=== PATIENT | female | born 1990 | race Caucasian/White ===

== ENCOUNTER → 2017-09-12 11:27 | Outpatient (CLI) | payer MEDICAID, SELFPAY ==
[2017-09-12 14:00] LABS: Hematocrit 40.6 % (37-47); Hemoglobin 13.5 g/dl (12.0-15.0); Mean Corp Hgb Conc 33.3 g/gl (32-36); Mean Corpuscular Hgb 27.8 pg (27.0-32.0); Mean Corpuscular Volume 83.5 fL (81-99); Mean Platelet Vol. 12.4 fl (6.2-12.0); Platelet Count 247 K/mm3 (150-450); RBC Distribution Width CV 13.6 % (11.6-14.6); RBC Distribution Width SD 40.9 fl (35.1-43.9); Red Blood Count 4.86 M/mm3 (4.2-5.4); White Blood Count 6.7 K/mm3 (4.4-11.0)
[2017-09-12 14:03] LABS: Scan Indicated on CBC? Y/N NO
[2017-09-12 14:09] LABS: hCG Titer Quant., Serum < 1 mIU/mL (<9 non-preg)
[2017-09-12 14:15] LABS: Follicle Stimulating Hormone 1.9 mIU/mL; Luteinizing Hormone 1.7 mIU/mL; T4 Free Direct 0.73 ng/dL (0.76-1.46); Thyroid Stim Hormone (TSH) 2.06 uIU/mL (0.358-3.74)
== END ==
PROVIDERS: Visit Provider Obstetrics & Gynecology
DX: N92.0 Excessive and frequent menstruation with regular cycle (principal); N92.4 Excessive bleeding in the premenopausal period
CPT/HCPCS: 36415; 83001; 83002; 84439; 84443; 84702; 85027

== ENCOUNTER → 2017-11-06 15:14 | Outpatient (CLI) | payer MEDICAID, SELFPAY ==
[2017-11-06 18:30] LABS: Chlamydia Trachomatis by PCR Negative (Negative); Neisserai gonorrhoeae by PCR Negative (Negative); Probe Check PASS; Sample Adequacy Control PASS; Specimen Processing Control PASS
== END ==
PROVIDERS: Visit Provider Obstetrics & Gynecology
DX: Z11.3 Encounter for screening for infections with a predominantly sexual mode of transmission (principal)
CPT/HCPCS: 87491; 87591

== ENCOUNTER → 2017-12-03 13:44 | Outpatient (CLI) | payer MEDICAID, SELFPAY | PROVIDERS: Visit Provider Obstetrics & Gynecology | DX: R30.0 Dysuria (principal) | CPT/HCPCS: 87077; 87086; 87088; 87186 ==

== ENCOUNTER → 2018-05-13 15:21 | Outpatient (CLI) | payer MEDICAID, SELFPAY ==
[2018-05-16 13:28] LABS: HPV Reflexed? NOT INDICATED
== END ==
PROVIDERS: Visit Provider Obstetrics & Gynecology
DX: Z12.4 Encounter for screening for malignant neoplasm of cervix (principal)
CPT/HCPCS: 88175; G0145

== ENCOUNTER → 2018-05-17 16:47 | Outpatient (CLI) | payer MEDICAID, SELFPAY | PROVIDERS: Visit Provider Physician Assistant Surgical | DX: J02.9 Acute pharyngitis, unspecified (principal) | CPT/HCPCS: 87081 ==

== ENCOUNTER 2018-06-02 11:01 | Emergency (ER) | payer MEDICAID, SELFPAY ==
[2018-06-02 11:03] VITALS: BP 124/67; PULSE 84; RESP 16; TEMP 36.7; O2SAT 98; BMI 34.9
--- NOTE | 2018-06-02 11:16 | RAD_ITS ---
STUDY: X-RAY - RIGHT KNEE REASON FOR EXAM: Female, 28 years old. Pain 2 months TECHNIQUE: 4 view(s) of the knee. # Of Images: 4 COMPARISON: March 05, 2011 right knee x-ray FINDINGS: Normal visualized distal femur. Normal visualized proximal tibia and fibula. Normal proximal tibiofibular articulation. 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 Normal lateral femorotibial compartment. There is mild degenerative arthrosis of the patellofemoral articulation. The soft tissue structures are unremarkable. RAD/Knee 4 or More Views IMPRESSION: Mild degenerative No visualized evidence of an acute fracture. Electronically Signed: Soni Hess MD at 12:07 EDT Tel , Service support ,
--- NOTE | 2018-06-02 11:19 | ED.VISSUMM ---
- ER Visit Summary Date of Service: 06/02/18 Chief Complaint: Right knee pain History of Present Illness: The patient is a 28 F who presents with right knee pain that has been waxing and waning for the past 2 months. Patient states the pain is worse today. Patient states she was walking in high heels at a wedding yesterday. Patient denies any direct trauma or injury. Patient states the pain is worse over the medial aspect of her right knee. Patient describes the pain is constant aching but sharp at times. Patient states the pain is worse with certain movements. Patient denies any paresthesias or weakness. Physical Examination: Vital signs are stable. Patient is afebrile. Patient is in no acute distress. Skill skeletal exam reveals tenderness over the medial aspect of the right knee. There is also tenderness over the pes anserine bursa. There is no effusion. There is no edema or ecchymosis. There is no bony crepitance or step-off. There is pain with ligamentous testing but there is no laxity with varus, valgus, or Markos's test. Range of motion was limited in flexion of the right knee secondary to pain. Sensation was intact to light touch in the lower extremities bilaterally. Pedal pulses are equal bilaterally. The remaining physical exam is within normal limits. Test Results: X-rays of the right knee were obtained. There is no acute fracture or loose body noted. Emergency Department Course and Treatment: Patient was instructed to use ice to the area. Patient was instructed to use Tylenol as needed for pain. Patient had prior Wade-en-Y surgery so NSAIDs are contraindicated. Patient was instructed to follow-up with her primary care physician in 5-7 days. Patient understood and was agreeable with the plan. All questions were answered. Disposition: Discharge home Impression: Right knee pain This note was generated with [employer] dictation software. It may contain incorrect words, spelling, and punctuation that were not noted in review of the chart prior to signing ED Disposition - Plan for ED Patient: Disposition: Home or Assisted Living Chief Complaint: Lower Extremity Injury Diagnosis: Right medial knee pain Instructions: ED Knee Pain [facility]
[2018-06-02 12:32] VITALS: RESP 16
== END 2018-06-02 12:34 | disposition home or self-care (01) ==
PROVIDERS: Emergency Provider Emergency Medicine; Family Provider Student in an Organized Health Care Education/Training Program; PCP Student in an Organized Health Care Education/Training Program
DX: M25.561 Pain in right knee (principal); Z79.899 Other long term (current) drug therapy
CPT/HCPCS: 73564; 99282

== ENCOUNTER → 2018-07-09 14:24 | Outpatient (CLI) | payer MEDICAID, SELFPAY ==
[2018-07-09 15:18] LABS: Hematocrit 41.7 % (37-47); Hemoglobin 13.4 g/dl (12.0-15.0); Mean Corp Hgb Conc 32.1 g/gl (32-36); Mean Corpuscular Hgb 27.5 pg (27.0-32.0); Mean Corpuscular Volume 85.6 fL (81-99); Mean Platelet Vol. 12.5 fl (6.2-12.0); Platelet Count 211 K/mm3 (150-450); RBC Distribution Width CV 13.6 % (11.6-14.6); RBC Distribution Width SD 42.7 fl (35.1-43.9); Red Blood Count 4.87 M/mm3 (4.2-5.4); White Blood Count 5.7 K/mm3 (4.4-11.0)
[2018-07-09 15:42] LABS: Scan Indicated on CBC? Y/N NO
[2018-07-09 15:45] LABS: Vitamin B12 307 pg/mL (211-911)
[2018-07-09 15:50] LABS: ALB/GLOB Ratio 1.3 RATIO (0.9-2.4); AST(SGOT) 10 U/L (15-37); Alanine Aminotransfer ALT/SGPT 18 U/L (13-56); Albumin, Serum 3.9 g/dL (3.2-5.0); Alkaline Phosphatase 87 U/L (45-117); Anion Gap 9 (5-15); BUN 8 mg/dL (7-18); BUN/Creat Ratio 13.2 RATIO (10-20); Calcium,Total 8.9 mg/dL (8.5-10.1); Chloride 109 mmol/L (98-107); Creatinine, Serum 0.61 mg/dL (0.55-1.02); EST Glomerular Filtration Rate 124 mL/min (>60); Est Glom Filt Rate - Afr Amer 150 mL/min (>60); Glucose 82 mg/dL (74-106); Iron 45 ug/dL (50-170); Potassium 3.9 mmol/L (3.5-5.1); Protein, Total 6.9 g/dL (6.4-8.2); Sodium Level 143 mmol/L (136-145)
[2018-07-11 15:36] LABS: Zinc, Plasma or Serum 64 ug/dL (56-134)
--- OUTSIDE RECORDS SUMMARY | 2018-09-04 05:55 | XMS RPT_ITS ---
:1990 Author Organization OHIP Support Name Relationship Address Phone MAMTAKARTIK Unavailable [address] + [place] [address] UE Unavailable Unavailable Unavailable KARTIK OLEARY Unavailable [address] + [place] [address] UE Unavailable Unavailable Unavailable Geitgey, Lorraine Unavailable Unavailable + Kartik Oleary Unavailable Unavailable + KARTIK OLEARY Unavailable [address] + [place] [address] UE Unavailable Unavailable Unavailable MAMTA KARTIK Unavailable [address] + [place] [address] UE Unavailable Unavailable Unavailable LOLA OLEARYUA Unavailable [address] + [place] [address] UE Unavailable Unavailable Unavailable AMMTA KARTIK Unavailable [address] + [place] [address] UE Unavailable Unavailable Unavailable LOLA OLEARYUA Unavailable [address] + [place] [address] UE Unavailable Unavailable Unavailable LOLA OLEARYUA Unavailable [address] + [place] [address] UE Unavailable Unavailable Unavailable Geitgey, Lorraine Unavailable Unavailable + Kartik Oleary Unavailable Unavailable + Geitgey, Lorraine Unavailable Unavailable + Kartik Oleary Unavailable Unavailable + Geitgey, Lorraine Unavailable Unavailable + Kartik Oleary Unavailable Unavailable + Geitgey, Lorraine Unavailable Unavailable + Kartik Oleary Unavailable Unavailable + Geitgey, Lorraine Unavailable Unavailable + Kartik Oleary Unavailable Unavailable + Geitgey, Lorraine Unavailable Unavailable + Kartik Oleary Unavailable Unavailable + Geitgey, Lorraine Unavailable Unavailable + Kartik Oleary Unavailable Unavailable + Geitgey, Lorraine Unavailable Unavailable + Kartik Oleary Unavailable Unavailable + Geitgey, Lorraine Unavailable Unavailable + Kartik Oleary Unavailable Unavailable + Geitgey, Lorraine Unavailable Unavailable + Kartik Oleary Unavailable Unavailable + Kartik Oleary Unavailable Unavailable + Kartik Oleary Unavailable Unavailable + KARTIK OLEARY Unavailable [address] + [place] [address] UE Unavailable Unavailable Unavailable Geitgey, Lorraine Unavailable Unavailable + Kartik Oleary Unavailable Unavailable + KARTIK OLEARY Unavailable [address] + [place] [address] UE Unavailable Unavailable Unavailable Geitgey, Bindu Unavailable Unavailable + Kartik Oleary Unavailable Unavailable + Geitgey, Bindu Unavailable Unavailable + Kartik Oleary Unavailable Unavailable + LOLA OLEARYUA Unavailable [address] + [place] [address] UE Unavailable Unavailable Unavailable LOLA OLEARYUA Unavailable [address] + [facility] [place] [address] UE Unavailable Unavailable Unavailable LOLA OLAERYUA Unavailable [address] + [facility] [place] [address] UE Unavailable Unavailable Unavailable LOLA OLEARYUA Unavailable [address] + [place] [address] UE Unavailable Unavailable Unavailable MAMTA KARTIK Unavailable [address] + [place] [address] UE Unavailable Unavailable Unavailable Bindu Lim Unavailable Unavailable + Kartik Oleary Unavailable Unavailable + Care Team Providers Name Role Phone Stacy Horton Attending Unavailable Florinda Thompson Referring Unavailable Primay Care Physicia, No Primary Care Unavailable Renan Murphy Attending Unavailable Primay Care Physicia, No Primary Care Unavailable Kartik Kramer Attending Unavailable Graciela Grimm Attending Unavailable Primay Care Physicia, No Referring Unavailable Primay Care Physicia, No Primary Care Unavailable Graciela Grimm Attending Unavailable Primay Care Physicia, No Primary Care Unavailable Benekos, Florinda Attending Unavailable Primay Care Physicia, No Primary Care Unavailable Benekos, Florinda Attending Unavailable Benekos, Florinda Attending Unavailable Primay Care Physicia, No Primary Care Unavailable JuansDianaFlorinda Attending Unavailable Denzel Dumont Attending Unavailable Denzel Dumont Attending Unavailable Denzel Dumont Attending Unavailable Yury Velarde Attending Unavailable Los, Simranjot Primary Care Unavailable SOHA HOLT Attending Unavailable Los, Simranjot Primary Care Unavailable SOHA HOLT Referring Unavailable BenekoFlorinda ibanez Attending Unavailable Los, Simranjot Primary Care Unavailable MADONNA, REDD Attending Unavailable JULIO WILSON Attending Unavailable Alexander Mckeon Attending Unavailable Madonna, Redd Referring Unavailable Madonna, Redd Primary Care Unavailable Alexander Mckeon Attending Unavailable Madonna, Redd Referring Unavailable Madonna, Redd Primary Care Unavailable Alexander Mckeon Attending Unavailable Madonna, Redd Referring Unavailable Madonna, Redd Primary Care Unavailable Madonna, Redd Referring Unavailable Madonna, Redd Primary Care Unavailable Alexander Mckeon Attending Unavailable Soha Holt Attending Unavailable Los, Jacob Referring Unavailable Los, Jacob Primary Care Unavailable Soha Holt Attending Unavailable Los, Jacob Referring Unavailable Los, Jacob Primary Care Unavailable Soha Holt Attending Unavailable Los, Jacob Referring Unavailable Los, Jacob Primary Care Unavailable Soha Holt Attending Unavailable Los, Jacob Referring Unavailable Los, Jacob Primary Care Unavailable Soha Holt Attending Unavailable Los, Jacob Referring Unavailable Los, Jacob Primary Care Unavailable Soha Holt Attending Unavailable Los, Jacob Referring Unavailable Los, Jacob Primary Care Unavailable Sharmila Cuba Attending Unavailable Los, Jacob Referring Unavailable Los, Jacob Primary Care Unavailable Madonna, Redd Referring Unavailable Madonna, Redd Primary Care Unavailable Alexander Mckeon Attending Unavailable BRIDLE, RERE R. Attending Unavailable Los, Jacob Referring Unavailable Los, Jacob Primary Care Unavailable BRIDLE, RERE R. Attending Unavailable Los, Jacob Referring Unavailable Los, Jacob Primary Care Unavailable CLEMENT GALEANA Attending Unavailable Los, Jacob Referring Unavailable Los, Jacob Primary Care Unavailable Los, Jacob Referring Unavailable Los, Jacob Primary Care Unavailable BRIDLE, RERE R. Attending Unavailable Los, Jacob Referring Unavailable Los, Jacob Primary Care Unavailable Sharmila Cuba Attending Unavailable PROBLEMS PROBLEMS DATE TYPE CONDITION / CODE ATTENDING STATUS SOURCE 07/25/2018 Unknown N64.52 - Nipple Robotham, Active [facility] discharge / [facility] N64.52(ICD-10) Hospital Repository 07/12/2018 Admitting Hyperlipidemia, DEON, RERE Active [facility] Diagnosis unspecified / R. System E78.5(ICD-10) Repository 07/12/2018 Admitting Morbid (severe) BRIDLE, RERE Active [facility] Diagnosis obesity due to R. System excess calories / Repository E66.01(ICD-10) 07/12/2018 Admitting Vitamin D BRIDLE, RERE Active [facility] Diagnosis deficiency, R[facility] System unspecified / Repository E55.9(ICD-10) 07/12/2018 Admitting Intestinal BRIDLE, RERE Active [facility] Diagnosis malabsorption, R[facility] 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 System unspecified / Repository E61.9(ICD-10) 07/12/2018 Admitting Body mass index BRIDLE, RERE Active [facility] Diagnosis (BMI) 33.0-33.9, R. System adult / Repository Z68.33(ICD-10) 07/09/2018 Unknown E61.9 - Deficiency ZOGRAFAKIS, Active [facility] of nutrient [facility] element, Hospital unspecified / Repository E61.9(ICD-10) 07/09/2018 Unknown Z68.41 - Body mass ZOGRAFAKIS, Active [facility] index (BMI) [facility] 40.0-44.9, adult / Hospital Z68.41(ICD-10) Repository 07/09/2018 Unknown K90.9 - Intestinal ZOGRAFAKIS, Active [facility] malabsorption, [facility] unspecified / Hospital K90.9(ICD-10) Repository 05/17/2018 Unknown J02.9 - Acute Tim, Denzel Active [facility] pharyngitis, [facility] unspecified / Hospital J02.9(ICD-10) Repository 05/13/2018 Unknown Z12.4 - Encounter Donna Florinda Active [facility] for screening for Community malignant neoplasm Hospital [facility] / Repository Z12.4(ICD-10) 04/19/2018 Admitting Other specified Rummell, Active [facility] Diagnosis eating disorder / Sharmila System F50.89(ICD-10) Repository 04/19/2018 Admitting Anxiety disorder, Rummell, Active [facility] Diagnosis unspecified / Sharmila System F41.9(ICD-10) Repository 03/28/2018 Admitting Body mass index Zografakis, Active [facility] Diagnosis (BMI) 40.0-44.9, [facility] adult / Repository Z68.41(ICD-10) 03/28/2018 Admitting Encounter for other Zografakis, Active [facility] Diagnosis specified surgical [facility] aftercare / Repository Z48.89(ICD-10) 02/28/2018 Admitting Deficiency of Zografakis, 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 / Repository E61.7(ICD-10) 02/28/2018 Admitting Candidal stomatitis Zografakis, Active [facility] Diagnosis / B37.0(ICD-10) [facility] Repository 02/28/2018 Admitting Bariatric surgery Zografakis, Active [facility] Diagnosis status / [facility] Z98.84(ICD-10) Repository 02/21/2018 Admitting Gastro-esophageal Zografakis, Active [facility] Diagnosis reflux disease [facility] without esophagitis Repository / K21.9(ICD-10) 02/21/2018 Admitting Body mass index Zografakis, Active [facility] Diagnosis (BMI) 45.0-49.9, [facility] adult / Repository Z68.42(ICD-10) 02/21/2018 Admitting Prediabetes / Zografakis, Active [facility] Diagnosis R73.03(ICD-10) [facility] Repository 02/21/2018 Admitting Unspecified asthma, Zografakis, Active [facility] Diagnosis uncomplicated / [facility] J45.909(ICD-10) Repository 02/21/2018 Admitting Personal history of Zografakis, Active [facility] Diagnosis nicotine dependence [facility] / Z87.891(ICD-10) Repository 02/21/2018 Admitting Fatty (change of) Zografakis, Active [facility] Diagnosis liver, not [facility] elsewhere Repository classified / K76.0(ICD-10) 02/21/2018 Admitting Gastritis, Zografakis, Active [facility] unspecified, [facility] without bleeding / Repository K29.70(ICD-10) 02/21/2018 Admitting Polycystic ovarian Zografakis, Active [facility] Diagnosis syndrome / [facility] E28.2(ICD-10) Repository 02/14/2018 Admitting Encounter for other Zografakis, Active [facility] preprocedural [facility] examination / Repository Z01.818(ICD-10) 01/17/2018 Admitting Encounter for RERE CHAVARRIA Active [facility] screening for R. System diabetes mellitus / Repository Z13.1(ICD-10) 01/17/2018 Admitting Gastro-esophageal Zografakis, Active [facility] Diagnosis reflux disease with [facility] esophagitis / Repository K21.0(ICD-10) 12/03/2017 Unknown R30.0 - Dysuria / Benekos, Florinda Active [facility] R30.0(ICD-10) [facility] Repository 11/20/2017 Admitting Shortness of breath Zografakis, Active [facility] Diagnosis / R06.02(ICD-10) [facility] Repository 11/20/2017 Admitting Other fatigue / Zografakis, Active [facility] Diagnosis R53.83(ICD-10) [facility] Repository 11/06/2017 Unknown Z11.3 - Encounter Florinda Thompson Active [facility] for screening for Community infections with a Hospital predominantly Repository sexual mode of transmission / Z11.3(ICD-10) 09/12/2017 Unknown N92.4 - Excessive Florinda Thompson Active [facility] bleeding in the Community premenopausal Hospital period / Repository N92.4(ICD-10) 09/04/2017 Unknown M54.5 - Low back GrimmGraciela Active [facility] pain / Community M54.5(ICD-10) Hospital Repository PROCEDURES PROCEDURES No Procedure Records FoundRESULTS RESULTS DIAG MAMM W/CAD, Observed: 07/18/2018 Status: F Source: [facility] BILAT 9:39 AM [facility] REPOSITORY [facility] Imaging Services [address] [place] [address] DIAG MAMM W/CAD, BILAT MR#: [id number] Acct: [id number] Name: MARGO OLEARY Rep #: [id number] : 1990 F 28 From: Octavio Rodriguez MD PCP: Polo Madison MD Status: REG CLI Study: DIAG MAMM W/CAD, BILAT Date of Exam: 07/18/18 Exam# [id number] Ordering Dr: Florinda Thompson MD MAMMOGRAPHY - BILATERAL DIAGNOSTIC REASON FOR EXAM: Female, 28 years old. 3 week history of right breast pain. Bloody discharge on the right side. PERTINENT HISTORY: Grandmother with breast cancer. TECHNIQUE: Digital bilateral breast denice (3D mammographic acquisition) in the CC and MLO projections. 2-D mediolateral oblique (MLO) and craniocaudad (CC) views of both breasts were obtained. CAD: Full Field Digital Mammography with Computer Added Detection was performed. COMPARISON: Comparison is made with prior examination dated January 12, 2014. FINDINGS: Breast Composition: There are scattered areas of fibroglandular density. There are no dominant masses or suspicious calcifications. No other significant abnormalities are identified. There has been no significant change since the prior study. BI/DIAG MAMM W/CAD, BILAT IMPRESSION: Stable bilateral diagnostic mammogram. With the patient's history of a breast discharge, correlation with ultrasound is recommended. ASSESSMENT CATEGORY: BIRADS Category 0: Incomplete. Need additional imaging evaluation. A letter regarding these results will be sent to the patient by the facility within 30 days. Approximately 10% of breast cancers are not detected by mammography. A normal mammogram should not delay biopsy of a clinically suspicious abnormality. Electronically Signed: Octavio Rodriguez MD at 10:39 EST Tel [phone], Service support , CC: Florinda Thompson MD; Polo Madison MD Dairy Husbandry Teacher: Signed BREAST LIMITED Observed: 07/18/2018 Status: F Source: [facility] UNILATERAL 9:39 AM [facility] REPOSITORY [facility] Imaging Services [address] [place] [address] Breast Limited Unilateral MR#: [id number] Acct: [id number] Name: MARGO OLEARY Rep #: [id number] : 1990 F 28 From: Octavio Rodriguez MD PCP: Polo Madison MD Status: REG CLI Study: Breast Limited Unilateral Date of Exam: 07/18/18 Exam# [id number] Ordering Dr: Florinda Thompson MD STUDY: ULTRASOUND BREAST - RIGHT REASON FOR EXAM: Female, 28 years old. Breast pain and nipple discharge. TECHNIQUE: Axial and longitudinal images of the RIGHT breast were performed with a high resolution ultrasound transducer. COMPARISON: Comparison is made with prior mammogram done earlier today. FINDINGS: RIGHT Breast: There is evidence of dilated retroareolar ducts. No solid or cystic mass lesion is seen. IMPRESSION: Dilated retroareolar ducts. ASSESSMENT CATEGORY: BIRADS Category 2: Benign. A letter regarding these results will be sent to the patient by the facility within 30 days. Electronically Signed: Octavio Rodriguez MD at 11:53 EST Tel [phone], Service support , STUDY: ULTRASOUND BREAST - LEFT REASON FOR EXAM: Female, 28 years old. Breast pain and breast discharge. TECHNIQUE: Axial and longitudinal images of the LEFT breast were performed with a high resolution ultrasound transducer. COMPARISON: Comparison is made with prior mammogram done earlier in the day. FINDINGS: LEFT Breast: There is evidence of dilated subareolar ducts. US/Breast Limited Unilateral IMPRESSION: Dilated subareolar ducts. ASSESSMENT CATEGORY: BIRADS Category 2: Benign. A letter regarding these results will be sent to the patient by the facility within 30 days. Electronically Signed: Octavio Rodriguez MD at 11:54 EST Tel [phone], Service support , CC: Florinda Thompson MD; Polo Madison MD Dairy Husbandry Teacher: Signed CBC-COMPLETE BLOOD CNT Collected: 07/09/2018 Status: F Source: N[facility] NO DIFF 2:33 PM [facility] REPOSITORY TYPE CODE TESTS RESULT OUT OF RANGE REFERENCE UNITS LAB L100.1000 4.4-11.0 K/mm3 Normal WBC 5.7 LAB L100.1200 4.2-5.4 M/mm3 Normal RBC 4.87 LAB L100.1300 12.0-15.0 g/dl Normal HGB 13.4 LAB L100.1400 37-47 % Normal HCT 41.7 LAB L100.1500 81-99 fL Normal MCV 85.6 LAB L100.1600 27.0-32.0 pg Normal MCH 27.5 LAB L100.1700 32-36 g/gl Normal MCHC 32.1 LAB L100.1810 11.6-14.6 % Normal RDW CV 13.6 LAB L100.1820 35.1-43.9 fl Normal RDW SD 42.7 LAB L100.1900 150-450 K/mm3 Normal PLT 211 LAB L100.2000 6.2-12.0 fl High MPV 12.5 Performed By: #### L100.0500 #### [facility] [address] [place], [address] VITAMIN B12 Collected: 07/09/2018 Status: F Source: [place] 2:33 PM [facility] REPOSITORY TYPE CODE TESTS RESULT OUT OF RANGE REFERENCE UNITS LAB L503.0105 211-911 pg/mL Normal Vitamin B12 307 Performed By: #### L503.0105 #### [facility] [address] [place], [address] COMPREHENSIVE METABOLIC Collected: 07/09/2018 Status: F Source: [facility] 2:33 PM [facility] REPOSITORY Order Comment: Is Patient Taking Vitamins or Folic Acid Supplements? N TYPE CODE TESTS RESULT OUT OF RANGE REFERENCE UNITS LAB L501.0100 74-106 mg/dL Normal GLU 82 Result Comment: Please note revised GLUCOSE reference range effective 2017. LAB L501.1000 7-18 mg/dL Normal BUN 8 LAB L501.1100 0.55-1.02 mg/dL Normal CREAT,SERUM 0.61 Result Comment: The validity of the calculated GFR AND GFRAA in patients over 70 years has not been determined. Clinical correlation is essential. LAB L501.1110 >60 mL/min Normal EST GFR 124 Result Comment: Non- GFR Calc LAB L501.1115 >60 mL/min Normal EST GFR - AA 150 Result Comment: GFR Calc LAB L501.1300 10-20 RATIO Normal BUN/CRE 13.2 LAB L501.1500 6.4-8.2 g/dL T Normal PROT 6.9 LAB L501.1800 3.2-5.0 g/dL Normal ALB 3.9 LAB L501.1950 2.2-4.2 g/dL Normal GLOB 3.0 LAB L501.2000 0.9-2.4 RATIO Normal A/G 1.3 LAB L501.2200 8.5-10.1 mg/dL CA Normal 8.9 LAB L501.4100 15-37 U/L Low AST 10 LAB L501.4305 45-117 U/L Normal ALK P 87 LAB L501.4405 13-56 U/L Normal ALT 18 LAB L501.4600 0.20-1.00 mg/dL T Normal BILI 0.20 LAB L501.5300 136-145 mmol/L NA Normal 143 LAB L501.5600 3.5-5.1 mmol/L K Normal 3.9 LAB L501.5900 98-107 mmol/L High CL 109 LAB L501.6100 21.0-32.0 mmol/L Normal CO2 25.0 LAB L501.6200 5-15 Normal GAP 9 Performed By: #### L500.4050, L501.5200, L503.6150, L506.0250 #### [facility] [address] [facility] [id number] MAGNESIUM Collected: 07/09/2018 Status: F Source: [place] 2:33 PM [facility] REPOSITORY Order Comment: Is Patient Taking Vitamins or Folic Acid Supplements? N TYPE CODE TESTS RESULT OUT OF RANGE REFERENCE UNITS LAB L501.5200 1.6-2.6 mg/dL Normal MG 2.0 Performed By: #### L500.4050, L501.5200, L503.6150, L506.0250 #### [facility] [address] [place], [address] IRON Collected: 07/09/2018 Status: F Source: [place] 2:33 PM [facility] REPOSITORY Order Comment: Is Patient Taking Vitamins or Folic Acid Supplements? N TYPE CODE TESTS RESULT OUT OF RANGE REFERENCE UNITS LAB L503.6150 50-170 ug/dL Low IRON 45 Performed By: #### L500.4050, L501.5200, L503.6150, L506.0250 #### [facility] [address] [place], [address] FOLATES, (FOLIC ACID) Collected: 07/09/2018 Status: F Source: [place] 2:33 PM [facility] REPOSITORY Order Comment: Is Patient Taking Vitamins or Folic Acid Supplements? N TYPE CODE TESTS RESULT OUT OF RANGE REFERENCE UNITS LAB L506.0250 3.1-55.4 ng/mL Normal FOLATES 17.00 Performed By: #### L500.4050, L501.5200, L503.6150, L506.0250 #### [facility] [address] [facility] [place], [address] ZINC, PLASMA OR Collected: 07/09/2018 Status: F Source: [place] SERUM 2:33 PM [facility] REPOSITORY TYPE CODE TESTS RESULT OUT OF RANGE REFERENCE UNITS LAB L3300.9900 56-134 ug/dL Normal ZINC 64 Plasma/Ser Result Comment: Detection Limit = 5 Performed at: [facility] [id number] Softball Player: Kendell Felix MD, Phone: [phone] Performed By: #### L3300.9900 #### [facility] (refer to report for specific site) refer to report for address and phone number EMERGENCY DEPARTMENT Observed: 06/02/2018 Status: F Source: TRY[place] SUMMARY 12:30 PM [facility] REPOSITORY [facility] Medical Records Department [address] [facility] [address] Emergency Department Summary 06/02/18 1119 MR#: [id number] Acct: [id number] Name: MARGO OLEARY Meghan Rep #: [id number] : 1990 28 From: Yury Velarde DO PCP: OUT OF TOWN DOCTOR Status: REG ER - ER Visit Summary Date of Service: 06/02/18 Chief Complaint: Right knee pain History of Present Illness: The patient is a 28 F who presents with right knee pain that has been waxing and waning for the past 2 months. Patient states the pain is worse today. Patient states she was walking in high heels at a wedding yesterday. Patient denies any direct trauma or injury. Patient states the pain is worse over the medial aspect of her right knee. Patient describes the pain is constant aching but sharp at times. Patient states the pain is worse with certain movements. Patient denies any paresthesias or weakness. Physical Examination: Vital signs are stable. Patient is afebrile. Patient is in no acute distress. Skill skeletal exam reveals tenderness over the medial aspect of the right knee. There is also tenderness over the pes anserine bursa. There is no effusion. There is no edema or ecchymosis. There is no bony crepitance or step-off. There is pain with ligamentous testing but there is no laxity with varus, valgus, or Markos's test. Range of motion was limited in flexion of the right knee secondary to pain. Sensation was intact to light touch in the lower extremities bilaterally. Pedal pulses are equal bilaterally. The remaining physical exam is within normal limits. Test Results: X-rays of the right knee were obtained. There is no acute fracture or loose body noted. Emergency Department Course and Treatment: Patient was instructed to use ice to the area. Patient was instructed to use Tylenol as needed for pain. Patient had prior Wade-en-Y surgery so NSAIDs are contraindicated. Patient was instructed to follow-up with her primary care physician in 5-7 days. Patient understood and was agreeable with the plan. All questions were answered. Disposition: Discharge home Impression: Right knee pain This note was generated with [employer] dictation software. It may contain incorrect words, spelling, and punctuation that were not noted in review of the chart prior to signing ED Disposition - Plan for ED Patient: Disposition: Home or Assisted Living Chief Complaint: Lower Extremity Injury Diagnosis: Right medial knee pain Instructions: ED Knee Pain UKO What to do if you have Problems For any increased pain, shortness of breath, bleeding, nausea or vomiting, chest pain, or any unexpected problems, contact your Primary Care Provider. Call [facility] ([phone]) or report to the closest Emergency Room. Call 911 if necessary. 06/02/18 1230 <Electronically signed by Yury Schwiger DO> Date Yury Velarde DO Cosigner Signature (If Indicated): Date CC: OUT OF TOWN DOCTOR KNEE 4 OR MORE Observed: 06/02/2018 Status: F Source: NICO VIEWS 11:16 AM [facility] REPOSITORY [facility] Imaging Services [address] [place] [address] Knee 4 or More Views MR#: [id number] Acct: [id number] Name: MARGO OLEARY Rep #: [id number] : 1990 F 28 From: Soni Hess MD PCP: OUT OF TOWN DOCTOR Status: REG ER Study: Knee 4 or More Views Date of Exam: 06/02/18 Exam# [id number] Ordering Dr: Yury Velarde DO STUDY: X-RAY - RIGHT KNEE REASON FOR EXAM: Female, 28 years old. Pain 2 months TECHNIQUE: 4 view(s) of the knee. # Of Images: 4 COMPARISON: March 05, 2011 right knee x-ray FINDINGS: Normal visualized distal femur. Normal visualized proximal tibia and fibula. Normal proximal tibiofibular articulation. 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 Normal lateral femorotibial compartment. There is mild degenerative arthrosis of the patellofemoral articulation. The soft tissue structures are unremarkable. RAD/Knee 4 or More Views IMPRESSION: Mild degenerative No visualized evidence of an acute fracture. Electronically Signed: Soni Hess MD at 12:07 EDT Tel , Service support , CC: Yury Velarde DO; OUT OF TOWN DOCTOR Dairy Husbandry Teacher: Signed URGENT CARE VISIT Observed: 05/24/2018 Status: F Source: NICO REPORT 10:50 AM [facility] REPOSITORY [facility] [address] [place] [address] [address] [place] [address] OFFICE VISIT Date of Service: 05/24/18 MR#: [id number] Acct: [id number] Name: MARGO OLEARY Rep #: [id number] : 1990 Provider: Denzel TEAGUE Age/Sex: 28/F Location: [facility] Status: Signed Intake Vital Signs05/24/18 Height 5 ft 8 in Intake Visit Reasons: SINUS CONGESTION Allergies No Known Allergies Allergy (Verified 05/24/18 10:28) Medications Mv-Min/Iron/Folic/Calcium/Vitk [Women's Daily Formula Tablet] 1 ea PO DAILY 08/27/17 [History Confirmed 05/24/18] Omeprazole 20 mg PO DAILY 08/27/17 [History Confirmed 05/24/18] Sertraline HCl [Zoloft] 100 mg PO DAILY 08/27/17 [History Confirmed 05/24/18] biotin 1 mg capsule 1 mg PO DAILY 05/17/18 [History Confirmed 05/24/18] calcium carbonate 500 mg calcium (1,250 mg) tablet 500 mg PO BID tab 05/17/18 [History Confirmed 05/24/18] azithromycin 250 mg tablet See Rx Instructions PO .COMPLEX #6 tab 05/24/18 [Rx Confirmed 05/24/18] benzonatate 100 mg capsule 200 mg PO TID PRN #30 cap 05/24/18 [Rx Confirmed 05/24/18] methylprednisolone 4 mg tablets in a dose pack 4 mg PO PER PKG DIR 5 Days #21 tab 05/24/18 [Rx Confirmed 05/24/18] PFSH Medical History Asthma (Acute) Back pain (Acute) Weight loss (Acute) Surgical History Gastric bypass status for obesity (Acute) History of appendectomy (Acute) Family History Other Arthritis Asthma Cancer Diabetes Social History Smoking Status: Former smoker alcohol intake: never HPI HPI Details: MARGO OLEARY, is a 28 F who presents to the office today for continued cough, nasal congestion and shortness of breath. Patient states that she has a history of asthma and has been using her rescue inhaler increasingly for the past several days. She states that the inhaler does relieve her shortness of breath. She also reports wheezing particularly at night which is made better with the nebulizer which she uses every night. She describes her cough as productive of green/yellow sputum however denies any hemoptysis or difficulty breathing. She denies fever, chills, sweats. No nausea, vomiting, diarrhea. No other associated symptoms or alleviating/aggravating factors. ROS Const Constitutional: No fever(s), chills, headache(s), night sweats or abnormal sleep pattern ENT ENT: Positive for nasal discharge, nasal congestion and post nasal drip; no headache(s), ear pain, ear discharge or sore throat Resp Respiratory: Positive for cough Cough: Yes productive, wheezing, shortness of breath and pain with cough; no hemoptysis Cardio Cardiology: No chest pain at rest or shortness of breath Neuro Neurology: No headache(s), behavioral changes or confusion Psych Psychiatric: No abnormal sleep pattern, No behavioral changes, No confusion Aller/Imm Allergy/Immunologic: Positive for wheezing Exam Const General: cooperative, well developed HENND Head: normal to inspection, atraumatic Ears: hearing grossly normal bilaterally Nose: nasal discharge clear Face and sinus: normal facial exam Mouth: oral mucosae normal Throat: abnormal tonsil bilaterally Resp Effort AND Inspection: normal respiratory effort, no audible wheezes Auscultation: Bilateral: Clear to Auscultation Cardio Palpation: normal PMI Rate: regular rate Rhythm: regular rhythm Neuro General: alert, CN's II-XI intact bilaterally Psych Appearance: grossly normal Mental Status: mental status grossly normal Assessment AND Plan Problems 1. Acute bronchitis, unspecified organism J20.9 Status Acute Plan Z-Donald, Medrol Dosepak and benzonatate as prescribed today. Encouraged to get plenty of rest, drink lots of clear liquids, and use Tylenol or Ibuprofen (unless contraindicated) for fever and comfort. Patient also educated on other symptomatic management techniques. To be seen in 7-10 days if no improvement; sooner if worsening of symptoms. Patient advised of potential red flags and when appropriate report to the ED. Patient verbalized understanding and agreement with all the above. Medications New: Coding Level of Care Code Off vis,est,level 3 Diagnoses Acute bronchitis, unspecified organism J20.9 Bronchitis organism: unspecified organism 05/24/18 1050 <Electronically signed by Denzel TEAGUE> Date Denzel TEAGUE Cosigner Signature: Date (if applicable) CC: Observed: 05/17/2018 Status: F Source: TRYON CULTURE, R/O STREP A 4:48 PM [facility] REPOSITORY JESUS Culture No Streptococcus group A isolated. * This cultures intended use is to screen for Beta Streptococcus A only. All other pathogens and potential pathogens will not be screened for or reported. If a complete workup of all potential pathogens is indicated an order for a routine throat culture is required. Performed By: #### M100.010 #### [facility] Neelam Laurent. [place], [place], [id number] URGENT CARE VISIT Observed: 05/17/2018 Status: F Source: TRYON REPORT 11:46 AM [facility] REPOSITORY [facility] [address] [place] [address] [address] [place] [address] OFFICE VISIT Date of Service: 05/17/18 MR#: [id number] Acct: [id number] Name: MAMTAMARGO Meghan Rep #: [id number] : 1990 Provider: Denzel TEAGUE Age/Sex: 28/F Location: [facility] Status: Signed Intake Vital Signs05/17/18 Height 5 ft 8 in Intake Visit Reasons: sore throat Allergies No Known Allergies Allergy (Verified 05/17/18 10:10) Medications Mv-Min/Iron/Folic/Calcium/Vitk [Women's Daily Formula Tablet] 1 ea PO DAILY 08/27/17 [History Confirmed 05/17/18] Omeprazole 20 mg PO DAILY 08/27/17 [History Confirmed 05/17/18] Sertraline HCl [Zoloft] 100 mg PO DAILY 08/27/17 [History Confirmed 05/17/18] biotin 1 mg capsule 1 mg PO DAILY 05/17/18 [History Confirmed 05/17/18] calcium carbonate 500 mg calcium (1,250 mg) tablet 500 mg PO BID tab 05/17/18 [History Confirmed 05/17/18] PFSH Medical History Asthma (Acute) Back pain (Acute) Weight loss (Acute) Surgical History Gastric bypass status for obesity (Acute) History of appendectomy (Acute) Family History Other Arthritis Asthma Cancer Diabetes Social History Smoking Status: Former smoker alcohol intake: never HPI HPI Details: MARGO OLEARY, is a 28 F who presents to the office today for complaint of sore throat for the past 36 hours. 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 She states that her children have not shown any signs of strep. She has not taken any medication for this current episode. She denies any fever, chills, sweats. No nausea, vomiting, diarrhea. No other associated symptoms or alleviating/aggravating factors. ROS Const Constitutional: No fever(s), headache(s), anorexia, chills or abnormal sleep pattern ENT ENT: Positive for sore throat; no headache(s), post nasal drip, ear pain, nasal congestion or nasal discharge Resp Respiratory: No shortness of breath Cardio Cardiology: No irregular heart rhythm or palpitations Gastro GI: No nausea/dyspepsia Neuro Neurology: No headache(s) or behavioral changes Psych Psychiatric: No abnormal sleep pattern, No behavioral changes Exam Const General: cooperative, healthy appearing [facility] Head: normal to inspection Ears: hearing grossly normal bilaterally, TM's normal bilaterally, EAC's normal Nose: external nose normal Face and sinus: normal facial exam Mouth: oral mucosae normal Teeth and gingiva: dentition normal Throat: posterior oropharynx abnormal erythema Resp Effort AND Inspection: normal respiratory effort Auscultation: Bilateral: Clear to Auscultation Cardio Palpation: normal PMI Rate: regular rate Rhythm: regular rhythm Neuro General: CN's II-XI intact bilaterally, alert Psych Appearance: grossly normal Mental Status: mental status grossly normal Results BMSRAPIDSTREPA Office Rapid Strep A Negative Last Edit by Mera Siddiqi on 05/17/18 10:15 Assessment AND Plan Problems 1. Acute pharyngitis, unspecified etiology J02.9 Status Acute Plan Negative rapid strep in the office today. Encouraged to get plenty of rest, drink lots of clear liquids, and use Tylenol or Ibuprofen (unless contraindicated) for fever and comfort. Patient also educated on other symptomatic management techniques. To be seen in 7-10 days if no improvement; sooner if worsening of symptoms. Patient advised of potential red flags and when appropriate report to the ED. Patient verbalized understanding of all the above. Orders Orders: Coding Level of Care Code Off vis,new,level 3 Diagnoses Acute pharyngitis, unspecified etiology J02.9 Pharyngitis/tonsillitis etiology: unspecified etiology 05/17/18 1146 <Electronically signed by Denzel TEAGUE> Date Denzel TEAGUE Cosigner Signature: Date (if applicable) CC: PAP I-G W/RFX HRHPV Collected: 05/13/2018 Status: F Source: NICO 3:00 PM [facility] REPOSITORY Order Comment: CYTOLOGY INFORMATION: - CLINICAL INFORMATION: - DATE LMP/MENOPAUSE: 05/06 LMP - COLLECTION VIAL: Thin Prep Vial - COLLISION ESTIMATOR SOURCE: CERVICAL/ENDOCERVICAL - COLLECTION TECHNIQUE: BRUSH/SPATULA Specimen Comment: [id number] Specimen Comment: Source.............Cervix;Endocervix Specimen Comment: LMP / Prev Treat...[id number] Specimen Comment: No. of containers..01 ThinPrep Vial TYPE CODE TESTS RESULT OUT OF RANGE REFERENCE UNITS LAB L7400.0800 . Normal DIAGN Comment Result Comment: NEGATIVE FOR INTRAEPITHELIAL LESION AND MALIGNANCY. LAB L7400.0900 . Normal ADEQ Comment Result Comment: Satisfactory for evaluation. Endocervical and/or squamous metaplastic cells (endocervical component) are present. LAB L7400.1400 . Normal PERFORM Comment Result Comment: Arleth Salgado, [employer] Goods Machine Set Up Operator (ASCP) LAB L7400.2575 . Normal TEST METHOD Comment Result Comment: This liquid based ThinPrep(R) pap test was screened with the use of an image guided system. LAB L7400.2600 . Normal . COMM LAB L7400.2700 . Normal PAPSMR Comment Result Comment: The Pap smear is a screening test designed to aid in the detection of premalignant and malignant conditions of the uterine cervix. It is not a diagnostic procedure and should not be used as the sole means of detecting cervical cancer. Both false-positive and false-negative reports do occur. LAB L7400.2800 . Normal HPV RFLX Comment Result Comment: The HPV DNA reflex criteria were not met with this specimen result therefore, no HPV testing was performed. Performed at: - [facility] [id number] Softball Player: Caroline Mcgrath MD, Phone: [phone] Performed By: #### L7400.0350 #### [facility] (refer to report for specific site) refer to report for address and phone number HEMOGRAM Collected: 03/25/2018 Status: F Source: RABBL 1:04 PM SYSTEM REPOSITORY TYPE CODE TESTS RESULT OUT OF RANGE REFERENCE UNITS LAB IWBC 3.6-10.7 10*3/uL WBC Normal 5.6 LAB RBC 3.80-5.20 10*6/uL RBC Normal 4.98 LAB HGB 11.7-16.0 g/dL Normal Hemoglobin 13.5 LAB HCT 35.0-47.0 % Normal Hematocrit 41.0 LAB MCV 79.0-98.0 fL MCV Normal 82.3 LAB MCH 26.0-34.0 pg MCH Normal 27.0 LAB MCHC 32.0-36.0 % MCHC Normal 32.8 LAB RDW 11.5-14.5 % High RDW 16.8 LAB PLT 140-440 10*3/uL Platelet Normal 170 LAB MPV 7.4-10.4 fL High MPV 11.3 Performed By: #### HEMOG, IRON3, CMP3, MG3, FERR3, FOLT3, B12 #### [facility] [address] [address] IRON, TOTAL Collected: 03/25/2018 Status: F Source: [facility]ABBL 1:04 PM SYSTEM REPOSITORY TYPE CODE TESTS RESULT OUT OF RANGE REFERENCE UNITS LAB IRON3 37-170 ug/dL Normal Iron, 48 Total Performed By: #### HEMOG, IRON3, CMP3, MG3, FERR3, FOLT3, B12 #### [facility] [address] [phone] COMP METABOLIC PANEL Collected: 03/25/2018 Status: F Source: [facility]BL 1:04 PM SYSTEM REPOSITORY TYPE CODE TESTS RESULT OUT OF RANGE REFERENCE UNITS LAB NA3 137-145 mmol/L Sodium Normal 141 LAB K3 3.5-5.1 mmol/L Normal Potassium 3.9 LAB CL3 98-107 mmol/L Chloride Normal 106 LAB CO23 22-30 mmol/L Carbon Normal Dioxide 22 LAB ANIN3 NA Anion Gap 13 LAB GLUC3 70-100 mg/dL Low Glucose 64 LAB BUN3 7-20 mg/dL Urea Normal Nitrogen 9 LAB CRET3 0.52-1.25 mg/dL Normal Creatinine 0.53 LAB GF3BR >60 mL/min eGFR > 60.0 LAB GF3WR >60 mL/min eGFR OTHER > 60.0 Result Comment: Source- MDRD equation with creatinine calibration to IDMS(NKDEP) eGFR not recommended for drug dose adjustment LAB CA3 8.4-10.4 mg/dL Calcium Normal 9.3 LAB ALB3 3.5-5.0 g/dL Albumin, Serum Normal 4.5 LAB TP3 6.3-8.2 g/dL Total Protein Normal 6.7 LAB BILT3 0.2-1.3 mg/dL Normal Bilirubin,Total 0.5 LAB ALKP3 38-126 U/L Alkaline Normal Phosphatase 97 LAB ALT3 13-69 U/L ALT (SGPT) Normal 33 LAB AST3 15-46 U/L AST (SGOT) Normal 18 Performed By: #### HEMOG, IRON3, CMP3, MG3, FERR3, FOLT3, B12 #### [facility] [address] [phone] MAGNESIUM Collected: 03/25/2018 Status: F Source: RABBL 1:04 PM SYSTEM REPOSITORY TYPE CODE TESTS RESULT OUT OF RANGE REFERENCE UNITS LAB MG3 1.6-2.3 mg/dL Normal Magnesium 1.8 Performed By: #### HEMOG, IRON3, CMP3, MG3, FERR3, FOLT3, B12 #### [facility] [place] [address] [place], [place] FERRITIN Collected: 03/25/2018 Status: F Source: RABBL 1:04 PM SYSTEM REPOSITORY TYPE CODE TESTS RESULT OUT OF RANGE REFERENCE UNITS LAB 3FERR 8-252 ng/mL Normal Ferritin 42 Performed By: #### HEMOG, IRON3, CMP3, MG3, FERR3, FOLT3, B12 #### [employer] [facility] [place], [place] FOLATE Collected: 03/25/2018 Status: F Source: [place]ABBL 1:04 PM SYSTEM REPOSITORY TYPE CODE TESTS RESULT OUT OF RANGE REFERENCE UNITS LAB 3FOLT 2.8-20.0 ng/mL Normal Folate 18.2 Performed By: #### HEMOG, IRON3, CMP3, MG3, FERR3, FOLT3, B12 #### [facility] [address] VITAMIN B12 Collected: 03/25/2018 Status: F Source: [facility] 1:04 PM SYSTEM REPOSITORY TYPE CODE TESTS RESULT OUT OF RANGE REFERENCE UNITS LAB B12 239-931 pg/mL Normal Vitamin B12 853 Performed By: #### HEMOG, IRON3, CMP3, MG3, FERR3, FOLT3, B12 #### [facility] [address] [address] [place], [place] ZINC, SERUM Collected: 03/25/2018 Status: F Source: [facility] 1:04 PM SYSTEM REPOSITORY TYPE CODE TESTS RESULT OUT OF REFERENCE UNITS RANGE LAB ZINCR 60-120 ug/dL Zinc, 103 Serum Result Comment: INTERPRETIVE INFORMATION: Zinc, Serum or Plasma Circulating zinc concentrations are dependent on albumin status and are depressed with malnutrition. Zinc may also be lowered with infection, inflammation, stress, oral contraceptives, and . Zinc may be elevated with zinc supplementation or fasting. Elevated zinc concentrations may interfere with copper absorption. Test developed and characteristics determined by [employer]. See Compliance Statement B: [facility] Performed by [facility], [address] [place] [address] [email or web address], Darrel Stuart MD - Lab. Director Performed By: #### ZINC2 #### The performing lab is in the report. HEMOGRAM/DIFF Collected: 03/14/2018 Status: F Source: [facility] 4:34 PM HEALTH SYSTEM REPOSITORY TYPE CODE TESTS RESULT OUT OF REFERENCE UNITS RANGE LAB LWBC(LOINC 4.8-10.8 thou/cmm ) WBC 5.7 LAB LRBC(LOINC 4.20-5.40 mil/cmm ) RBC 4.80 LAB LHGB(LOINC 12.0-16.0 g/dL ) Hgb 12.7 LAB LHCT(LOINC 37.0-47.0 % ) Hct 39.3 LAB LMCV(LOINC 81.0-99.0 fl ) MCV 81.9 LAB LMCH(LOINC 27.0-31.0 pg ) Low MCH 26.5 LAB LMCHC(LOIN 32.0-36.0 % C) MCHC 32.3 LAB LRDW(LOINC 11.5-15.9 % ) RDW 15.3 LAB LPLT(LOINC 150-400 thou/cmm ) Platelet 223 LAB LMPV(LOINC 7.1-10.5 fl ) MPV High 13.0 LAB LSEGT(LOIN % C) Seg Neutrophil 64.0 LAB LLYMP(LOIN % C) Lymphocyte 24.8 LAB LMNO(LOINC % ) Monocyte 8.3 LAB CATHERINE(LOINC % ) Eosinophil 2.5 LAB LBASO(LOIN % C) Basophil 0.4 LAB LSEGN(LOIN 3.00-5.67 thou/cmm C) Abs. Neut (ANC) 3.66 LAB LLYMN(LOIN 1.50-3.65 thou/cmm C) Low Abs. Lymph 1.41 LAB LMONN(LOIN 0.20-1.00 thou/cmm C) Abs. Bee 0.47 LAB LEOSN(LOIN 0.00-0.41 thou/cmm C) Abs. Eosin 0.14 LAB LBASN(LOIN 0.00-0.08 thou/cmm C) Abs. Baso 0.02 Performed By: #### LCBCD #### [facility] [address] [address] BASIC PANEL Collected: 03/14/2018 Status: F Source: [facility] 4:34 PM HEALTH SYSTEM REPOSITORY TYPE CODE TESTS RESULT OUT OF REFERENCE UNITS RANGE LAB MANAGER UTILIZATION MANAGEMENT(LOINC) 136-145 mEq/L Low Sodium Blood 135 LAB LK(LOINC) 3.5-5.1 mEq/L Potassium Blood 3.5 LAB LCL(LOINC) 98-107 mEq/L Chloride Blood 102 LAB LCO2(LOINC 21-32 mEq/L ) CO2 Blood 24 LAB LGLU(LOINC 70-99 mg/dL ) Glucose Blood 71 LAB LBUN(LOINC 7-25 mg/dL ) BUN Blood 10 LAB LCREA(LOIN 0.51-0.95 mg/dL C) Creatinine Blood 0.60 LAB LCA(LOINC) 8.5-10.1 mg/dL Calcium Blood 8.9 LAB LANGP(LOIN 8-20 C) Anion Gap 13 LAB LBNCR(LOIN 10-20 C) BUN/Creatinine 17 Ratio Performed By: #### LP8 #### [place] [address] MDRD EGFR Collected: 03/14/2018 Status: F Source: [facility] 4:34 PM HEALTH SYSTEM REPOSITORY TYPE CODE TESTS RESULT OUT OF RANGE REFERENCE UNITS LAB LGFRF(LOINC >60mL/min/1.73m ) 2 eGFR >60 Result Comment: If the patient is , multiply the result by 1.210. Performed By: #### LGFR #### [facility] [address] [address] [address] CHEST FOR PULMONARY Observed: 03/14/2018 Status: F Source: [facility] EMBOLUS 4:18 PM HEALTH SYSTEM REPOSITORY Performed at [facility] APPROVED BY: Ismael Shaw MD EXAM TITLE: CT WITH INTRAVENOUS CONTRAST OF THE THORAX WITH INTRAVENOUS CONTRAST (PE protocol) DATE:03/14/2018 15:38 COMPARISON: None. CLINICAL INDICATION/HISTORY: Shortness of breath and chest pain with recent gastric surgery; evaluate for pulmonary embolus TECHNIQUE: Following the administration of 100 cc Omnipaque 350 intravenous contrast axial images were obtained from the lung apices to the upper abdomen. Multiplanar reformatted images were created. CT Radiation dose: Integrated Dose-length product (DLP) for this visit = 513 mGy*cm. CT Dose Reduction Employed: Automated exposure control (AEC) was used. FINDINGS: The pulmonary arteries are moderately well opacified. They are adequately evaluated to the lobar level. No centralized filling defect is seen to indicate acute pulmonary embolus. The segmental branch es and distally are somewhat obscured by motion artifact and body habitus.. The heart is normal in size with no pericardial effusion. No mediastinal or hilar mass or adenopathy is seen. The trachea and esophagus are unremarkable. The aorta tapers smoothly with no evidence of aneurysm.. The study was not tailored for evaluation of the aorta, however no obvious evidence of dissection is seen. There is an 8 mm nodule within the left upper lobe (series 4 image 20). There appears to be central calcification. This most likely is a benign granuloma. No additional pulmonary nodules are seen. L ungs are otherwise clear. No pleural effusion or consolidation. No pneumothorax. Included limited images of the upper abdomen: Noncontributory The osseous structures of the thorax are unremarkable for the patient's age. IMPRESSION: 1. No evidence of acute pulmonary embolus. 2. 8mm left upper lobe nodule which is most consistent with a benign granuloma. 3. Otherwise unremarkable chest CNOV Observed: 03/14/2018 Status: COMPLETED Source: [place] 1:40 PM [facility] REPOSITORY Office Visit (AGINTMLW) MARGO OLEARY ([id number]) 1990 F Date Time Provider Department 03/14/18 1:40 PM POLO MADISON During your visit today, we recorded the following information about you: Temperature Pulse Respiration Blood pressure 97.7 degrees 76/minute 18/minute 112/70 Weight Height 126.1 kg 1.727 m Polo Madison MD 03/14/2018 4:47 PM Signed Subjective: Margo Oleary is a 27 year old White female, Patient presents with: Cough . HPI Patient is s/p LRYGB 02/21/18, Dr. Holt, was discharged 02/24/18. Was feeling until 2 days ago - started with CP mid chest assoc with deep breaths, also feels GOMEZ. c/o cough with sputum yellow, mostly at night No sore throat/ ear pain/ nasal stuffiness/ post nasal drainage. No Fever/ chills but has been subjectively cold since the Sx. Also c/o pain Lt lower back - does have h/o chr LBP. Pain worsens with movements especially rotation to Lt side, bending forward etc. No radiation of pain to hip or LE. No dysuria No urgency or freq. + strong odour Just finished her menstrual period. + nausea been taking phenergan - took a dose 2 days ago. Constipation - having BM once a week - last BM 4 days ago - soft stool, been advised to start miralax but hasnt done so yet. Has been taking percocet - took last dose this am. PAST MEDICAL HISTORY Diagnosis Date - Asthma 1 ER visit in 2008 and >7 times in childhood. - Dysthymic disorder Depression (non-psychotic) - Environmental allergies dust and mold - Family history of diabetes mellitus - Irregular menstrual cycle Irregular periods - Normal vaginal delivery 2008 - Recurrent acute otitis media Sees Dr. Jones - Varicella without mention of complication Chickenpox PAST SURGICAL HISTORY Procedure Laterality Date - APPENDECTOMY 2006 - DRAIN OVARIAN CYST(S),ABD APPRCH 2006 - GASTRIC BYPASS-MORBID OBESITY Social History Substance Use Topics - Smoking status: Never Smoker - Smokeless tobacco: Never Used Comment: previously, quit, approximately 100 cigarettes in life - Alcohol use No Family history reviewed. ALLERGIES No Known Allergies Omeprazole 20 mg TbEC, Take by mouth once daily. sertraline (ZOLOFT) 25 mg tablet, Take 200 mg by mouth. Cholecalciferol, Vitamin D3, 2,000 unit cap, Take 1 tablet by mouth once daily. albuterol HFA (PROAIR HFA) 90 mcg/Actuation INHALATION inhaler, Inhale 2 Puffs as instructed every 6 hours as needed. PYRIDOXINE HCL, VITAMIN B6, (VITAMIN B-6 ORAL), Take by mouth once daily. COMPOUNDED PRESCRIPTION, control patch. hydrOXYzine HCl (ATARAX) 50 mg tablet, Take 50 mg by mouth. cyclobenzaprine (FLEXERIL) 10 mg tablet, Take 1 tablet by mouth every 8 hours as needed for Muscle Spasm. (Patient not taking: Reported on 03/14/2018 ) No current facility-administered medications for this visit. Review of Systems Constitutional: Positive for malaise/fatigue. Negative for chills and fever. HENT: Negative for congestion, ear pain and sore throat. Eyes: Negative for blurred vision. Respiratory: Negative for wheezing. Cardiovascular: Negative for leg swelling. Gastrointestinal: Negative for blood in stool, diarrhea, heartburn and vomiting. Genitourinary: Negative for dysuria. Skin: Negative for rash. Neurological: Negative for dizziness and headaches. BP 112/70 Pulse 76 Temp (Src) 97.7 (Oral) Resp 18 Ht 5' 8 (1.73m) Wt 278 lb (126.1kg) BMI 42.28 kg/(m2). Physical Exam Constitutional: She is oriented to person, place, and time and well-developed, well-nourished, and in no distress. No distress. HENT: Head: Normocephalic. Eyes: Conjunctivae are normal. Right eye exhibits no discharge. Left eye exhibits no discharge. Cardiovascular: Normal rate, regular rhythm, normal heart sounds and intact distal pulses. No murmur heard. Pulmonary/Chest: Effort normal and breath sounds normal. No respiratory distress. She has no wheezes. No mid chest wall tenderness Abdominal: Soft. Bowel sounds are normal. She exhibits no distension. There is tenderness (LUQ/ epigastric region). Suture sites well healed Musculoskeletal: Edema: no LE edema. Neurological: She is alert and oriented to person, place, and time. Skin: Skin is warm and dry. Psychiatric: Mood and affect normal. CBC02/23/2018 [facility], [place] Component Name Value Ref Range WBC 7.9 3.6 - 10.7 10*3/uL RBC 4.28 3.80 - 5.20 10*6/uL Hemoglobin 11.3 (L) 11.7 - 16.0 g/dL Hematocrit 34.9 (L) 35.0 - 47.0 % MCV 81.4 79.0 - 98.0 fL MCH 26.4 26.0 - 34.0 pg MCHC 32.5 32.0 - 36.0 % RDW 15.9 (H) 11.5 - 14.5 % Platelets 187 140 - 440 10*3/uL MPV 11.2 (H) 7.4 - 10.4 fL Basic Metabolic Panel w/ Reflex to MG02/23/[address] [facility] [place], [place] Component Name Value Ref Range Sodium 142 137 - 145 mmol/L Potassium 4.2 3.5 - 5.1 mmol/L Chloride 110 (H) 98 - 107 mmol/L CO2 23 22 - 30 mmol/L Anion Gap 9 NA Glucose 86 70 - 100 mg/dL BUN 11 7 - 20 mg/dL CREATININE 0.7 0.52 - 1.25 mg/dL eGFR >60.0 >60 mL/min ASSESSMENT/PLAN: 1. Chest pain, unspecified type - ICD9: 786.50, ICD10: R07.9 (primary diagnosis) Chest pain of unclear etiology, patient with significant risk factor(s) of recent bariatric Sx, pleuritic CP - will need to r/o PE, DDimer likely will be high d/t recent Sx. - CT chest PE protocol STAT 2. Cough - ICD9: 786.2, ICD10: R05 ? URI ? CP related, will reassess based on CT chest results. 3. Obesity, Class III, BMI 40-49.9 (morbid obesity) ([facility]LY [facility]) - ICD9: 278.01, ICD10: E66.01 4. S/P gastric bypass - ICD9: V45.86, ICD10: Z98.84 Has ongoing f/u with bariatric center. 5. Chronic left-sided low back pain without sciatica - ICD9: 724.2, 338.29, ICD10: M54.5, G89.29 Chronic low back pain - Warm moist heat for 20 min three times a day - Patient given instructions intermittent rest, back care exercise program, improved posture, intermittent use of heat and avoiding sleeping on a heating pad - Follow up in 3-5 days or sooner if symptoms persist or worsen Discussed above plan with patient. Pt agreeable with above plan. Polo Madison MD This note was partially generated using SideTour recognition system, and there may be some incorrect words, spellings, and punctuation that were not noted in checking the note before saving. Referring Provider: SELF [[id number]] Allergies As of Date: 03/14/2018 (No Known Allergies) Date Reviewed: 09/26/2017 Reviewed by: Haydee (Rn) DANIEL Muhammad - Fully Assessed Reason for Visit: Cough [28] Primary Visit Diagnosis:Chest pain, unspecified type [R07.9] Other Visit Diagnoses:Cough [R05] Obesity, Class III, BMI 40-49.9 (morbid obesity) ([facility]) [E66.01] S/P gastric bypass [Z98.84] Chronic left-sided low back pain without sciatica [M54.5, G89.29] Asthma, unspecified asthma severity, unspecified whether complicated, unspecified whether persistent [J45.909] Order(s):UA DIP B/O [[id number]] Order #: [id number] CT CHEST W IVCON PE [[id number]] Order #: [id number] FUTURE iv contrast (will be provided with radiology test)CT Chest PE -Inject, intravenously, once for 1 dose.No IV access, insert saline lock prior to the beginning of sedation, infusion, injection of imaging exam. Discontinue saline lock post exam. If Pt. has a central line or IVAD, may access for administration according to line specific nursing protocol. Once exam is complete flush line and de-access according to line specific nursing protocol in the CT contrast administration guidelines link.Disp: 1 EachRfl: 0 CBC + DIFF [SQCBCDIF] Order #: [id number] FUTURE BASIC METABOLIC PNL [SQBMP] Order #: [id number] FUTURE CT CHEST W IVCON PE [[id number]] Order #: [id number]. #:[id number] Prescriptions as of 03/14/2018 Sig: OMEPRAZOLE 20 MG TABLET,DELAY* Take by mouth once daily. SERTRALINE 25 MG TABLET Take 200 mg by mouth. CHOLECALCIFEROL (VITAMIN D3) * Take 1 tablet by mouth once d* * ALBUTEROL SULFATE HFA 90 MCG/* Inhale 2 Puffs as instructed * IV CONTRAST (RADIOLOGY PROCED* CT Chest PE -Inject, intraven* COMPOUNDED PRESCRIPTION control patch. HYDROXYZINE HCL 50 MG TABLET Take 50 mg by mouth. Problem List As Of Date 03/14/2018 Noted Resolved Asthma [J45.909] INVALID FOR* Obesity [E66.9] INVALID FOR* Family history of diabetes mellitus [Z83.3] INVALID FOR* Knee pain, right [M25.561] INVALID FOR* Ankle pain, left [M25.572] INVALID FOR* Depression [F32.9] INVALID FOR* Abdominal cramping, bilateral lower quadrant [R*INVALID FOR* More... Vitamin d deficiency [E55.9] INVALID FOR* Low back pain [M54.5] INVALID FOR* Left wrist sprain [S63.502A] INVALID FOR* Left hand pain [M79.642] INVALID FOR* Lumbar paraspinal muscle spasm [M62.830] INVALID FOR* Obesity, Class III, BMI >= 40 [E66.01] INVALID FOR* Notes for Staff Discussed this visit Prescriptions ordered this encounter Disp Refills Start End IV CONTRAST (RADIOLOGY PROCEDURE) 1 Ea* 0 03/14/2018 03/15/2018 Class: In Office Sig: CT Chest PE -Inject, intravenously, once for 1 dose.No IV access, insert saline lock prior to the beginning of sedation, infusion, injection of imaging exam. Discontinue saline lock post exam. If Pt. has a central line or IVAD, may access for administration according to line specific nursing protocol. Once exam is complete flush line and de-access according to line specific nursing protocol in the CT contrast administration guidelines link. Medications Discontinued During This Encounter cyclobenzaprine (FLEXERIL) 10 mg tab* 30 t* 0 02/18/2013 03/14/2018 Route: ORAL Sig: Take 1 tablet by mouth every 8 hours as needed for Muscle Spasm. Patient not taking: Reported on 03/14/2018 Disc: Course of therapy completed PYRIDOXINE HCL, VITAMIN B6, (VITAMIN* 03/14/2018 Class: Historical Med Route: ORAL Sig: Take by mouth once daily. Disc: Discontinued by Patient Follow Up: Discussed this visit Disposition: Return if symptoms worsen or fail to improve. Follow-up and Disposition History Recorded Encounter Status:Closed by MD POLO MADISON on 03/14/18 PROGRESS Observed: 03/14/2018 Status: COMPLETED Source: [facility] 1:23 PM [facility] REPOSITORY HNO ID: [id number] Author: Polo Madison Service: (none) Author Type: Physician Type: Progress Notes Filed: 03/14/2018 4:47 PM Note Text: Subjective: Margo Oleary is a 27 year old White female, Patient presents with: Cough . HPI Patient is s/p LRYGB 02/21/18, Dr. Holt, was discharged 02/24/18. Was feeling until 2 days ago - started with CP mid chest assoc with deep breaths, also feels GOMEZ. c/o cough with sputum yellow, mostly at night No sore throat/ ear pain/ nasal stuffiness/ post nasal drainage. No Fever/ chills but has been subjectively cold since the Sx. Also c/o pain Lt lower back - does have h/o chr LBP. Pain worsens with movements especially rotation to Lt side, bending forward etc. No radiation of pain to hip or LE. No dysuria No urgency or freq. + strong odour Just finished her menstrual period. + nausea been taking phenergan - took a dose 2 days ago. Constipation - having BM once a week - last BM 4 days ago - soft stool, been advised to start miralax but hasnt done so yet. Has been taking percocet - took last dose this am. PAST MEDICAL HISTORY Diagnosis Date - Asthma 1 ER visit in 2008 and >7 times in childhood. - Dysthymic disorder Depression (non-psychotic) - Environmental allergies dust and mold - Family history of diabetes mellitus - Irregular menstrual cycle Irregular periods - Normal vaginal delivery 2008 - Recurrent acute otitis media Sees Dr. Jones - Varicella without mention of complication Chickenpox PAST SURGICAL HISTORY Procedure Laterality Date - APPENDECTOMY 2006 - DRAIN OVARIAN CYST(S),ABD APPRCH 2006 - GASTRIC BYPASS-MORBID OBESITY Social History Substance Use Topics - Smoking status: Never Smoker - Smokeless tobacco: Never Used Comment: previously, quit, approximately 100 cigarettes in life - Alcohol use No Family history reviewed. ALLERGIES No Known Allergies Omeprazole 20 mg TbEC, Take by mouth once daily. sertraline (ZOLOFT) 25 mg tablet, Take 200 mg by mouth. Cholecalciferol, Vitamin D3, 2,000 unit cap, Take 1 tablet by mouth once daily. albuterol HFA (PROAIR HFA) 90 mcg/Actuation INHALATION inhaler, Inhale 2 Puffs as instructed every 6 hours as needed. PYRIDOXINE HCL, VITAMIN B6, (VITAMIN B-6 ORAL), Take by mouth once daily. COMPOUNDED PRESCRIPTION, control patch. hydrOXYzine HCl (ATARAX) 50 mg tablet, Take 50 mg by mouth. cyclobenzaprine (FLEXERIL) 10 mg tablet, Take 1 tablet by mouth every 8 hours as needed for Muscle Spasm. (Patient not taking: Reported on 03/14/2018 ) No current facility-administered medications for this visit. Review of Systems Constitutional: Positive for malaise/fatigue. Negative for chills and fever. HENT: Negative for congestion, ear pain and sore throat. Eyes: Negative for blurred vision. Respiratory: Negative for wheezing. Cardiovascular: Negative for leg swelling. Gastrointestinal: Negative for blood in stool, diarrhea, heartburn and vomiting. Genitourinary: Negative for dysuria. Skin: Negative for rash. Neurological: Negative for dizziness and headaches. BP 112/70 Pulse 76 Temp (Src) 97.7 (Oral) Resp 18 Ht 5' 8 (1.73m) Wt 278 lb (126.1kg) BMI 42.28 kg/(m2). Physical Exam Constitutional: She is oriented to person, place, and time and well-developed, well-nourished, and in no distress. No distress. HENT: Head: Normocephalic. Eyes: Conjunctivae are normal. Right eye exhibits no discharge. Left eye exhibits no discharge. Cardiovascular: Normal rate, regular rhythm, normal heart sounds and intact distal pulses. No murmur heard. Pulmonary/Chest: Effort normal and breath sounds normal. No respiratory distress. She has no wheezes. No mid chest wall tenderness Abdominal: Soft. Bowel sounds are normal. She exhibits no distension. There is tenderness (LUQ/ epigastric region). Suture sites well healed Musculoskeletal: Edema: no LE edema. Neurological: She is alert and oriented to person, place, and time. Skin: Skin is warm and dry. Psychiatric: Mood and affect normal. CBC02/23/[address] [facility]- [place], [place] Component Name Value Ref Range WBC 7.9 3.6 - 10.7 10*3/uL RBC 4.28 3.80 - 5.20 10*6/uL Hemoglobin 11.3 (L) 11.7 - 16.0 g/dL Hematocrit 34.9 (L) 35.0 - 47.0 % MCV 81.4 79.0 - 98.0 fL MCH 26.4 26.0 - 34.0 pg MCHC 32.5 32.0 - 36.0 % RDW 15.9 (H) 11.5 - 14.5 % Platelets 187 140 - 440 10*3/uL MPV 11.2 (H) 7.4 - 10.4 fL Basic Metabolic Panel w/ Reflex to MG02/23/[address] [facility] [place] [place] Component Name Value Ref Range Sodium 142 137 - 145 mmol/L Potassium 4.2 3.5 - 5.1 mmol/L Chloride 110 (H) 98 - 107 mmol/L CO2 23 22 - 30 mmol/L Anion Gap 9 NA Glucose 86 70 - 100 mg/dL BUN 11 7 - 20 mg/dL CREATININE 0.7 0.52 - 1.25 mg/dL eGFR >60.0 >60 mL/min ASSESSMENT/PLAN: 1. Chest pain, unspecified type - ICD9: 786.50, ICD10: R07.9 (primary diagnosis) Chest pain of unclear etiology, patient with significant risk factor(s) of recent bariatric Sx, pleuritic CP - will need to r/o PE, DDimer likely will be high d/t recent Sx. - CT chest PE protocol STAT 2. Cough - ICD9: 786.2, ICD10: R05 ? URI ? CP related, will reassess based on CT chest results. 3. Obesity, Class III, BMI 40-49.9 (morbid obesity) (HCC) - ICD9: 278.01, ICD10: E66.01 4. S/P gastric bypass - ICD9: V45.86, ICD10: Z98.84 Has ongoing f/u with bariatric center. 5. Chronic left-sided low back pain without sciatica - ICD9: 724.2, 338.29, ICD10: M54.5, G89.29 Chronic low back pain - Warm moist heat for 20 min three times a day - Patient given instructions intermittent rest, back care exercise program, improved posture, intermittent use of heat and avoiding sleeping on a heating pad - Follow up in 3-5 days or sooner if symptoms persist or worsen Discussed above plan with patient. Pt agreeable with above plan. Polo Madison MD This note was partially generated using Dragon voice recognition system, and there may be some incorrect words, spellings, and punctuation that were not noted in checking the note before saving. CNCO Observed: 02/28/2018 Status: COMPLETED Source: [place] 12:00 AM [facility] REPOSITORY Letter Text [facility] [address] [place] [address] Dept Dept Polo Madison MD [facility] -[address] [place] [id number] - - February 28, 2018 Margo Oleary [address] [place] [phone] Dear Margo Oleary, We missed seeing you for a scheduled appointment on 02/28/[address] Madison. [facility] strives to offer the best possible care for all of our patients, so we are concerned when scheduled appointments are missed. We understand that circumstances may arise which make it impossible to keep or arrive on time for a scheduled appointment. Should this happen in the future, please call us as soon as possible so we can either reschedule or cancel your appointment in a timely manner. The earlier you let us know, the more likely we can offer your appointment time to another patient. Patients who don't cancel scheduled appointments at least 24 hours in advance or who show up too late past their appointment time to be seen, are considered No Show cancellations. [facility] is committed to ensuring that our patients have access to our healthcare services. Patients who repeatedly miss scheduled appointments or routinely show up late may be released from the practice. Sincerely, Polo Madison M.D. (Signed electronically to expedite mailing) HEMOGRAM Collected: 02/23/2018 Status: F Source: [facility] 4:40 AM SYSTEM REPOSITORY TYPE CODE TESTS RESULT OUT OF RANGE REFERENCE UNITS LAB IWBC 3.6-10.7 10*3/uL WBC Normal 7.9 LAB RBC 3.80-5.20 10*6/uL RBC Normal 4.28 LAB HGB 11.7-16.0 g/dL Low Hemoglobin 11.3 LAB HCT 35.0-47.0 % Low Hematocrit 34.9 LAB MCV 79.0-98.0 fL MCV Normal 81.4 LAB MCH 26.0-34.0 pg MCH Normal 26.4 LAB MCHC 32.0-36.0 % MCHC Normal 32.5 LAB RDW 11.5-14.5 % High RDW 15.9 LAB PLT 140-440 10*3/uL Platelet Normal 187 LAB MPV 7.4-10.4 fL High MPV 11.2 Performed By: #### HEIDY SKINNER #### [facility] [address] [phone] BASIC METABOLIC PANEL Collected: 02/23/2018 Status: F Source: [facility] 4:40 AM SYSTEM REPOSITORY TYPE CODE TESTS RESULT OUT OF RANGE REFERENCE UNITS LAB NA3 137-145 mmol/L Sodium Normal 142 LAB K3 3.5-5.1 mmol/L Normal Potassium 4.2 LAB CL3 98-107 mmol/L High Chloride 110 LAB CO23 22-30 mmol/L Carbon Normal Dioxide 23 LAB ANIN3 NA Anion Gap 9 LAB GLUC3 70-100 mg/dL Glucose Normal 86 LAB BUN3 7-20 mg/dL Urea Normal Nitrogen 11 LAB CRET3 0.52-1.25 mg/dL Normal Creatinine 0.70 LAB GF3BR >60 mL/min eGFR > 60.0 LAB GF3WR >60 mL/min eGFR OTHER > 60.0 Result Comment: Source- MDRD equation with creatinine calibration to IDMS(NKDEP) eGFR not recommended for drug dose adjustment LAB CA3 8.4-10.4 mg/dL Normal Calcium 8.9 Performed By: #### HEIDY SKINNER #### [facility] [address] [phone] RF UGI W/O KUB W/ Observed: 02/22/2018 Status: F Source: [facility] OR W/O DELAY FLM 8:08 AM SYSTEM REPOSITORY Patient Name: MARGO OLEARY Fluoroscopy Exam Date/Time 02/22/2018 07:53:23 EDT Exam RF UGI w/o KUB and w/ or w/o Delay Flm Ordering Physician DO GALEANA CHRISTOPHER L. Accession Number [id number] [facility]4 Codes 94866 () Reason For Exam 0600 Report GASTROGRAFIN UPPER GI SERIES CLINICAL INDICATION: S/P gastric bypass, postop, day one. Evaluate for leak. COMPARISON: None. TECHNIQUE: Gastrografin was administered in the upright position. FLUOROSCOPY TIME: 0.1 minutes. 29 fluoroscopic spot images were obtained. FINDINGS: Gastrografin was administered orally to the patient in the upright position. The esophagus is of normal course and caliber with no evidence of perforation or extravasation. The gastrojejunostomy is patent with no sign of extravasation or obstruction. The contrast empties readily from the gastric pouch into the jejunum. The jejunal jejunostomy is identified and shows free flow of contrast beyond the metallic clips that identify the anastomosis. There is no sign of obstruction. A surgical drain is noted in the left upper quadrant. IMPRESSION: Post-op changes consistent with gastric bypass surgery. No sign of extravasation or obstruction. Report Dictated on Final Dictated: 02/22/2018 8:07 am Dictating Physician: NANCY GREEN DO, I Signed Date and Time: 02/22/2018 1:02 pm Signed by: NANCY GREEN DO, I Transcribed Date and Time: 02/22/2018 8:08 HEMOGRAM Collected: 02/22/2018 Status: F Source: [facility] 3:23 AM SYSTEM REPOSITORY TYPE CODE TESTS RESULT OUT OF RANGE REFERENCE UNITS LAB IWBC 3.6-10.7 10*3/uL High WBC 13.6 LAB RBC 3.80-5.20 10*6/uL RBC Normal 4.64 LAB HGB 11.7-16.0 g/dL Normal Hemoglobin 12.2 LAB HCT 35.0-47.0 % Normal Hematocrit 37.5 LAB MCV 79.0-98.0 fL MCV Normal 80.7 LAB MCH 26.0-34.0 pg MCH Normal 26.4 LAB MCHC 32.0-36.0 % MCHC Normal 32.7 LAB RDW 11.5-14.5 % High RDW 15.4 LAB PLT 140-440 10*3/uL Platelet Normal 206 LAB MPV 7.4-10.4 fL High MPV 11.1 Performed By: #### HEMOG, MG3, BMP3M #### [facility] [place] [id number] MAGNESIUM Collected: 02/22/2018 Status: F Source: [facility] 3:23 AM SYSTEM REPOSITORY TYPE CODE TESTS RESULT OUT OF RANGE REFERENCE UNITS LAB MG3 1.6-2.3 mg/dL Normal Magnesium 2.2 Performed By: #### HEMOG, MG3, BMP3M #### [employer] [address] [place] [phone] BASIC METABOLIC PANEL Collected: 02/22/2018 Status: F Source: [facility] 3:23 AM SYSTEM REPOSITORY TYPE CODE TESTS RESULT OUT OF RANGE REFERENCE UNITS LAB NA3 137-145 mmol/L Sodium Normal 139 LAB K3 3.5-5.1 mmol/L Normal Potassium 4.3 LAB CL3 98-107 mmol/L Chloride Normal 107 LAB CO23 22-30 mmol/L Low Carbon Dioxide 20 LAB ANIN3 NA Anion Gap 12 LAB GLUC3 70-100 mg/dL High Glucose 115 LAB BUN3 7-20 mg/dL Urea Normal Nitrogen 9 LAB CRET3 0.52-1.25 mg/dL Normal Creatinine 0.60 LAB GF3BR >60 mL/min eGFR > 60.0 LAB GF3WR >60 mL/min eGFR OTHER > 60.0 Result Comment: Source- MDRD equation with creatinine calibration to IDMS(NKDEP) eGFR not recommended for drug dose adjustment LAB CA3 8.4-10.4 mg/dL Normal Calcium 9.0 Performed By: #### HEMOG, MG3, BMP3M #### [facility] [employer] [address] [place] [phone] HEMOGLOBIN AND Collected: 02/21/2018 Status: F Source: [facility] HEMATOCRIT 1:12 PM SYSTEM REPOSITORY TYPE CODE TESTS RESULT OUT OF RANGE REFERENCE UNITS LAB HGB 11.7-16.0 g/dL Normal Hemoglobin 13.8 LAB HCT 35.0-47.0 % Normal Hematocrit 41.6 Performed By: #### HGHCT, BMP3M #### [employer] [address] [place] [phone] BASIC METABOLIC PANEL Collected: 02/21/2018 Status: F Source: [facility] 1:12 PM SYSTEM REPOSITORY TYPE CODE TESTS RESULT OUT OF RANGE REFERENCE UNITS LAB NA3 137-145 mmol/L Sodium Normal 139 LAB K3 3.5-5.1 mmol/L Normal Potassium 4.1 LAB CL3 98-107 mmol/L Chloride Normal 104 LAB CO23 22-30 mmol/L Carbon Normal Dioxide 22 LAB ANIN3 NA Anion Gap 13 LAB GLUC3 70-100 mg/dL High Glucose 152 LAB BUN3 7-20 mg/dL Urea Normal Nitrogen 12 LAB CRET3 0.52-1.25 mg/dL Normal Creatinine 0.76 LAB GF3BR >60 mL/min eGFR > 60.0 LAB GF3WR >60 mL/min eGFR OTHER > 60.0 Result Comment: Source- MDRD equation with creatinine calibration to IDMS(NKDEP) eGFR not recommended for drug dose adjustment LAB CA3 8.4-10.4 mg/dL Normal Calcium 8.8 Performed By: #### HGHCT, BMP3M #### [facility] [facility] [address] [place] [address] Observed: 02/21/2018 Status: F Source: [facility] SURGICAL PATHOLOGY 11:23 AM SYSTEM REPOSITORY [id number] [facility] PATHOLOGY AND LABORATORY MEDICINE [address] [place] [address] FINAL SURGICAL PATHOLOGY REPORT NAME: MARGO OLEARYN [id number] : 1990 27 Y Berna LEY NO.: [id number] LOCATION: [place] 1633 01 PROCEDURE 02/21/2018 DATE: SURGEON: SOHA HOLT M.D. RECEIVED 02/21/2018 DATE: ATTENDING: SOHA HOLT M.D. REPORT DATE: 02/22/2018 COPIES TO: DIAGNOSIS: SUBCAPSULAR LIVER TISSUE WITH NO DIAGNOSTIC FEATURES. COMMENT: Rare scattered hepatocytes show macrovesicular steatosis estimated to involve less than 2% of hepatocytes. An iron stain is negative. A trichrome stain shows normal subcapsular hepatic parenchyma with no significant fibrosis, cholestasis or inflammation. [facility] <Sign Out Dr. Sher> QING MCDONNELL M.D. CLINICAL INFORMATION: Morbid obesity SPECIMEN: LIVER NEEDLE OR WEDGE BIOPSY, MEDICAL GROSS DESCRIPTION: Liver biopsy Received in formalin are multiple portions of red-brown, soft tissue aggregating to 1 x 1 cm. Specimen is entirely submitted in a single cassette. (bits ns, 1) JCK/JAF Disclaimer: The following statement applies to all immunohistochemistry, in situ hybridization, molecular studies, and immunofluorescence testing. The use of one or more reagents in the above tests is regulated as an analyte specific reagent (ASR). These tests were developed and their performance characteristics determined by the clinical laboratories of [facility]. They have not been cleared by the US Food and Drug Administration (FDA). The FDA has determined that such clearance or approval is not necessary. All the above immunostains were performed on paraffin embedded tissue. Appropriate positive and negative controls (where applicable) were run in parallel with the patient's specimen; these controls showed expected staining pattern, with acceptable intensity of staining. Immunohistochemical assays have not been validated on decalcified tissues. Results should be interpreted with caution given the raised possibility of false negativity on decalcified specimens. Professional Performing Location: [address] [address]. DEPARTMENT OF PATHOLOGY AND LABORATORY MEDICINE [place], [place] [phone] HCG,URINE QUAL Collected: 02/21/2018 Status: F Source: [facility] 8:53 AM SYSTEM REPOSITORY TYPE CODE TESTS RESULT OUT OF REFERENCE UNITS RANGE LAB HCGUR Negative NA Negative HCG,Urine Qual Result Comment: is the most common reason for HCG in urine, although choriocarcinoma, hydatidiform mole, and certain nontropho- blastic malignancies also result in detectable urinary HCG levels. Sensitivity = 20mIU/mL. Performed By: #### HCGUR #### [facility] [address] [place] [phone] BASIC METABOLIC PANEL Collected: 02/14/2018 Status: F Source: [facility] 12:35 PM SYSTEM REPOSITORY TYPE CODE TESTS RESULT OUT OF RANGE REFERENCE UNITS LAB NA3 137-145 mmol/L Sodium Normal 140 LAB K3 3.5-5.1 mmol/L Normal Potassium 4.6 LAB CL3 98-107 mmol/L Chloride Normal 104 LAB CO23 22-30 mmol/L Carbon Normal Dioxide 24 LAB ANIN3 NA Anion Gap 12 LAB GLUC3 70-100 mg/dL Glucose Normal 83 LAB BUN3 7-20 mg/dL Urea Normal Nitrogen 12 LAB CRET3 0.52-1.25 mg/dL Normal Creatinine 0.66 LAB GF3BR >60 mL/min eGFR > 60.0 LAB GF3WR >60 mL/min eGFR OTHER > 60.0 Result Comment: Source- MDRD equation with creatinine calibration to IDMS(NKDEP) eGFR not recommended for drug dose adjustment LAB CA3 8.4-10.4 mg/dL Normal Calcium 9.9 Performed By: #### BMP3 #### [employer] [address] [place] [phone] CR CHEST PA/LAT Observed: 01/17/2018 Status: F Source: [facility]AB[facility] 3:17 PM SYSTEM REPOSITORY Patient Name: MARGO OLEARY Diagnostic Radiology Exam Date/Time 01/17/2018 13:00:11 EDT Exam CR Chest PA/LAT Ordering Physician LAMINE CHAVARRIA LEISA R. Accession Number [id number] CPT4 Codes 98438 () Reason For Exam preop Report CLINICAL INDICATION: Preop. Frontal and lateral plain films of the chest were obtained. COMPARISON: None FINDINGS: The cardiac silhouette is within normal limits. No focal consolidation is seen within the lungs. No pleural effusion or pneumothorax is identified. IMPRESSION: No acute cardiopulmonary disease. Report Dictated on Final Dictated: 01/17/2018 3:17 pm Dictating Physician: MD WADSWORTH LAURA Signed Date and Time: 01/17/2018 3:18 pm Signed by: MD WADSWORTH LAURA Transcribed Date and Time: 01/17/2018 3:17 HEMOGRAM Collected: 01/17/2018 Status: F Source: [facility] 12:58 PM SYSTEM REPOSITORY TYPE CODE TESTS RESULT OUT OF RANGE REFERENCE UNITS LAB IWBC 3.6-10.7 10*3/uL WBC Normal 6.7 LAB RBC 3.80-5.20 10*6/uL RBC Normal 4.99 LAB HGB 11.7-16.0 g/dL Normal Hemoglobin 13.2 LAB HCT 35.0-47.0 % Normal Hematocrit 40.0 LAB MCV 79.0-98.0 fL MCV Normal 80.1 LAB MCH 26.0-34.0 pg MCH Normal 26.5 LAB MCHC 32.0-36.0 % MCHC Normal 33.0 LAB RDW 11.5-14.5 % High RDW 14.7 LAB PLT 140-440 10*3/uL Platelet Normal 253 LAB MPV 7.4-10.4 fL MPV Normal 10.3 Performed By: #### HEMOG, ALB3, BMP3, HA1C2 #### [employer] [address] [place] [phone] ALBUMIN, SERUM Collected: 01/17/2018 Status: F Source: [facility] 12:58 PM SYSTEM REPOSITORY TYPE CODE TESTS RESULT OUT OF RANGE REFERENCE UNITS LAB ALB3 3.5-5.0 g/dL Normal Albumin, 4.3 Serum Performed By: #### HEMOG, ALB3, BMP3, HA1C2 #### [employer] [address] [place] [phone] BASIC METABOLIC PANEL Collected: 01/17/2018 Status: F Source: [facility] 12:58 PM SYSTEM REPOSITORY TYPE CODE TESTS RESULT OUT OF RANGE REFERENCE UNITS LAB NA3 137-145 mmol/L Sodium Normal 145 LAB K3 3.5-5.1 mmol/L Normal Potassium 4.4 LAB CL3 98-107 mmol/L Chloride Normal 107 LAB CO23 22-30 mmol/L Carbon Normal Dioxide 23 LAB ANIN3 NA Anion Gap 15 LAB GLUC3 70-100 mg/dL Glucose Normal 70 LAB BUN3 7-20 mg/dL Urea Normal Nitrogen 13 LAB CRET3 0.52-1.25 mg/dL Normal Creatinine 0.59 LAB GF3BR >60 mL/min eGFR > 60.0 LAB GF3WR >60 mL/min eGFR OTHER > 60.0 Result Comment: Source- MDRD equation with creatinine calibration to IDMS(NKDEP) eGFR not recommended for drug dose adjustment LAB CA3 8.4-10.2 mg/dL Normal Calcium 9.1 Performed By: #### HEMOG, ALB3, BMP3, HA1C2 #### [facility] [facility] [address] [address] HEMOGLOBIN A1C Collected: 01/17/2018 Status: F [facility] PM SYSTEM REPOSITORY TYPE CODE TESTS RESULT OUT OF REFERENCE UNITS RANGE LAB A1C2 4.0-5.7 % High Hemoglobin A1C 5.8 Result Comment: --HgbA1C levels may not be accurate in patients who have renal disease, received recent blood transfusions, are anemic, or who have dyshemoglobinemia. LAB EAG2 mg/dL Estimated Avg Glucose 120 Performed By: #### HEMOG, ALB3, BMP3, HA1C2 #### [facility] [address] [address] Observed: 12/03/2017 Status: F Source: TRYON CULTURE, URINE 10:00 AM [facility] REPOSITORY Urine Culture ORGANISM 1: Streptococcus agalactiae (B) Murdo Count 11,000-25,000 Streptococcus agalactiae (B): REACTION Ampicillin $ <=0.25 S Benzylpenicillin NF 0.12 S Ceftriaxone $ <=0.12 S Inducable Clindamycin Resistan - Linezolid $$$$ <=2 S Vancomycin $ 0.5 S (NF) indicates non-formulary drug at [facility]. Approval by Infectious Disease Specialist required before non-formulary drugs may be ordered and/or dispensed. * CLSI guidelines does not recommend testing of cephalosporins. This interpretation is deduced from Beta-lactam/penicillin results. Performed By: #### M100.0650 #### [facility] [address] [place], [address] CT/NG [facility] BY PCR Collected: 11/06/2017 Status: F Source: TRYON 2:15 PM [facility] REPOSITORY TYPE CODE TESTS RESULT OUT OF RANGE REFERENCE UNITS LAB L8200.2100 Negative Normal Chlam Negative Trac PCR LAB L8200.2200 Negative Normal NG by Negative PCR Performed By: #### L8200.2000 #### [facility] [address] [place], [address] ED NOTE Observed: 09/26/2017 Status: COMPLETED Source: POULAN 11:30 PM [facility] REPOSITORY HNO ID: [id number] Author: Ghada RothmanRn) DANIEL Pena Service: Emergency Medicine Author Type: Registered Nurse Type: ED Notes Filed: 09/26/2017 11:33 PM Note Text: D/C to home, instructed to follow up as directed and return prn ED NOTE Observed: 09/26/2017 Status: COMPLETED Source: [place]AN 11:30 PM [facility] REPOSITORY HNO ID: [id number] Author: Yudelka RothmanRn) DANIEL San Service: Emergency Medicine Author Type: Registered Nurse Type: ED Notes Filed: 09/27/2017 12:30 PM Note Text: Patient Call Back Information ? How are you doing ? better ? Did we appropriately manage your pain? Yes ? Did you understand your discharge instructions? Yes ? Did you get your prescriptions filled? No ? Were you able to make a follow-up appointment with your physician? Yes ? Were you comfortable during your stay here? Yes ? Did a member of the ER nursing team round on you during your visit? Yes ? You will receive a patient satisfaction survey in the mail in the nest 2 weeks, please take the time to fill out the survey as your input from your ER visit is very important to us. Yes ? Can we do anything else to help you? No ED PROV NOTE Observed: 09/26/2017 Status: COMPLETED Source: [place]AN 10:56 PM [facility] REPOSITORY HNO ID: [id number] Author: Alexus Isaac MD Service: Emergency Medicine Author Type: Physician Type: ED Provider Notes Filed: 09/26/2017 11:21 PM Note Text: ED Provider Note Patient Name: Margo Oleary SERVICE DATE: 09/26/17 History Patient presents with: Fall History provided by: Patient Chief complaint right foot injury. Patient fell down several steps today outside. She has pain with walking. Abrasion to right knee. No other injury. She has not tried anything for pain. She declined pain medication here. PAST MEDICAL HISTORY Diagnosis Date - Asthma 1 ER visit in 2008 and >7 times in childhood. - Dysthymic disorder Depression (non-psychotic) - Environmental allergies dust and mold - Family history of diabetes mellitus - Irregular menstrual cycle Irregular periods - Normal vaginal delivery 2008 - Recurrent acute otitis media Sees Dr. Jones - Varicella without mention of complication Chickenpox PAST SURGICAL HISTORY Procedure Laterality Date - APPENDECTOMY 2006 - DRAIN OVARIAN CYST(S),ABD APPRCH 2006 FAMILY HISTORY Problem Relation Age of Onset - Diabetes Mother - Heart Mother arrythmia - Diabetes Maternal Grandmother - Cancer Maternal Grandmother skin cancer - type unknown - Diabetes Maternal Grandfather - Diabetes Paternal Grandmother - Diabetes Paternal Grandfather - Diabetes Brother Social History Social History Main Topics - Smoking status: Never Smoker - Smokeless tobacco: Never Used Comment: previously, quit, approximately 100 cigarettes in life - Alcohol use No - Drug use: No - Sexual activity: Yes Comment: uses BC patch ALLERGIES No Known Allergies Review of Systems Constitutional: Negative for fever. HENT: Negative for ear pain. Eyes: Negative for pain. Respiratory: Negative for shortness of breath. Cardiovascular: Negative for chest pain. Gastrointestinal: Negative for abdominal pain. Genitourinary: Negative for flank pain. Musculoskeletal: Negative for back pain. Skin: Negative for rash. Neurological: Negative for headaches. Psychiatric/Behavioral: Negative for agitation. Physical Exam BP 142/84 Pulse 78 Temp (Src) 97.8 (Temporal Artery) Resp 16 Ht 5' 8 (1.73m) Wt 302 lb (137.0kg) BMI 45.93 kg/(m2). Physical Exam Constitutional: She is oriented to person, place, and time. She appears well-developed and well-nourished. HENT: Head: Normocephalic. Eyes: Conjunctivae are normal. Right eye exhibits no discharge. Left eye exhibits no discharge. No scleral icterus. Neck: Normal range of motion. Pulmonary/Chest: Effort normal. Abdominal: There is no tenderness. Musculoskeletal: Normal range of motion. Right knee: She exhibits ecchymosis. No tenderness found. Right ankle: Normal. Cervical back: Normal. Right foot: There is tenderness and swelling. Feet: Neurological: She is alert and oriented to person, place, and time. Skin: Skin is warm and dry. Psychiatric: She has a normal mood and affect. Her behavior is normal. Diagnostic Testing ED Labs Ordered and Reviewed - No data to display Procedures Medical Decision Making / ED Course ED Course X-ray unremarkable. Patient declined pain medication. She'll follow-up with her primary care doctor if not improving. She'll seek care for new or worsening symptoms. Encounter Diagnosis ICD-10-CM 1. Contusion of foot including toes, right, initial encounter S90.31XA S90.121A Plan The Patient was DISCHARGED: Counseled patient regarding radiology results AND need for follow-up. Discharged home with verbal and written instructions. They were instructed to return as needed for persistent or worsening symptoms or any new concerns. Condition at time of disposition: stable SIGNATURE: MD Alexus Fernando MD 09/26/17 2321 ED NOTE Observed: 09/26/2017 Status: COMPLETED Source: [place]AN 10:32 PM [facility] REPOSITORY HNO ID: [id number] Author: Ghada RothmanRn) DANIEL Pena Service: Emergency Medicine Author Type: Registered Nurse Type: ED Notes Filed: 09/26/2017 10:32 PM Note Text: Patient returned to the Emergency Department. FOOT 3V AP/LAT/OBL Observed: 09/26/2017 Status: F Source: [facility] 10:30 PM [facility] REPOSITORY Performed at [facility] APPROVED BY: EDGARDO SCHULZ MD EXAM: 3 radiographic views of the right foot HISTORY: Trauma pain medially COMPARISON: None FINDINGS: 3 views of the right foot are submitted for evaluation. There is no evidence of displaced fracture or other significant bony abnormality. The included soft tissues demonstrate no radiopaque foreign body or subcutaneous gas. There is no significant regional soft tissue swelling. IMPRESSION: Normal right foot. ED NOTE Observed: 09/26/2017 Status: COMPLETED Source: P[place]AN 10:21 PM [facility] REPOSITORY HNO ID: [id number] Author: Ghada (Rn) DANIEL Pena Service: Emergency Medicine Author Type: Registered Nurse Type: ED Notes Filed: 09/26/2017 10:32 PM Note Text: Patient transported to radiology with Tech. ED NOTE Observed: 09/26/2017 Status: COMPLETED Source: [place] 9:55 PM [facility] REPOSITORY HNO ID: [id number] Author: Haydee (Rn) DANIEL Muhammad Service: Emergency Medicine Author Type: Registered Nurse Type: ED Notes Filed: 09/26/2017 9:55 PM Note Text: Patient fell down 6 steps today. She denies head injury or LOC. She c/o right foot pain. ORTHOPEDIC VISIT Observed: 09/22/2017 Status: F Source: TRYON REPORT 9:52 PM [facility] REPOSITORY [facility] Orthopaedics AND Sports Medicine [address] [place] [address] OFFICE VISIT Date of Service: 09/04/17 MR#: [id number] Acct: [id number] Name: MARGO OLEARY Rep #: [id number] : 1990 Provider: Graciela Grimm MD Age/Sex: 27/F Location[place] [facility] [place] [place] Status: Signed Intake Intake Visit Reasons: low back Is patient in pain?: Yes Pain scale (1-10): 4 Allergies No Known Allergies Allergy (Verified 06/10/17 11:34) Medications Cholecalciferol (Vitamin D3) [Vitamin D3] 2,000 unit PO DAILY 08/27/17 [History Confirmed 08/28/17] Cyclobenzaprine [Flexeril] 10 mg PO TID PRN PRN 08/27/17 [History Confirmed 08/28/17] Mv-Min/Iron/Folic/Calcium/Vitk [Women's Daily Formula Tablet] 1 ea PO DAILY 08/27/17 [History Confirmed 08/28/17] Omeprazole 20 mg PO DAILY 08/27/17 [History Confirmed 08/28/17] Pyridoxine HCl [Vitamin B-6] 25 mg PO DAILY 08/27/17 [History Confirmed 08/28/17] Sertraline HCl [Zoloft] 100 mg PO DAILY 08/27/17 [History Confirmed 08/28/17] PFSH Social History Smoking Status: Former smoker HPI low back: Chief Complaint: low back pain Details: MARGO OLEARY is a 27 year old RHD F who presents with 100% back pain since 2013. She denies leg pain. It is worse with everything, to include cleaning, laundry, holding her child. It is improved with heat and flexeril. She intermittently uses a cane. She takes NSAIDs daily, which helps some. She has had physical therapy in 2013, which did not help. She has had no aqua therapy. She denies difficulty with hand dexterity or bowel or bladder issues. She has had no spine surgery and has no pain management physician. She denies constitutional symptoms. She is considering gastric bypass surgery. She has asthma, anxiety, and PCOS. ROS Const Reports system reviewed and no additional complaints, except as docu Eyes Reports system reviewed and no additional complaints, except as docu ENT Reports system reviewed and no additional complaints, except as docu Card Reports system reviewed and no additional complaints, except as docu Resp Reports system reviewed and no additional complaints, except as docu GI Reports system reviewed and no additional complaints, except as docu Reports system reviewed and no additional complaints, except as docu Musc Reports back pain Skin/Breast Reports system reviewed and no additional complaints, except as docu Neuro Yes system reviewed and no additional complaints, except as docu Psych Reports system reviewed and no additional complaints, except as docu Endo Reports system reviewed and no additional complaints, except as docu Ortho Exam Spine Neuro: Yes Straight Leg Raise (negative bilaterally), Gallagher's (negative bilaterally), Clonus (no beats bilaterally) and Babinski (downgoing bilaterally) General: alert, oriented x3 Gait: normal gait (heel and toe walk. normal tandem gait, negative rombergs) Motor: strength 5/5 throughout Sensory Exam: no sensory deficits noted DTR's: Rt Triceps: 2+, Lt Triceps: 2+, Rt Biceps: 2+, Lt Biceps: 2+, Rt Brachioradialis: 2+, Lt Brachioradialis: 2+, Rt Patellar: 2+, Lt Patellar: 2+, Rt Ankle: 2+, Lt Ankle: 2+ Plantar Reflexes: Downgoing: bilateral Coordination: tandem gait normal, Romberg test normal Details: 2+ dp and pt pulses SPINE TESTING CERVICAL THORACIC LUMBAR SLR: Negative Musculoskeletal General: Yes normal posture Cervical Spine: cervical ROM normal Thoracic/Lumbar Spine: straight leg raise negative bilaterally, pain with thoraco-lumbar ROM (worse with forward flexion), paraspinal tenderness (tenderness throughout the lumbar spine), lumbar spinal tenderness Strength 0=absent - 5=normal Deltoid R (C5): 5, Deltoid L (C5): 5, R Bicep (C5-6): 5, L Bicep (C5-6): 5, R Wrist Extensor (C6): 5, L Wrist Extensor (C6): 5, R Tricep (C7): 5, L Tricep (C7): 5, R Finger Flexors (C8): 5, L Finger Flexors (C8): 5, R First Dorsal Interossei (C8): 5, L First Dorsal Interossei (C8): 5, R Hip Flexor (L1-3): 5, L Hip Flexor (L1-3): 5, R Quadriceps (L2-4): 5, L Quadriceps (L2-4): 5, R Anterior Tibialis (L4-5): 5, L Anterior Tibialis (L4- 5): 5, R Hamstrings (L5-S1): 5, L Hamstrings (L5-S1): 5, GS (S1): 5, L GS (S1): 5, R Peroneals (S1): 5, L Peroneals (S1): 5 Assessment AND Plan Problems 1. Chronic bilateral low back pain without sciatica M54.5; G89.29 Plan Imaging XR lumbar spine reveals diffuse spondylosis I/R/P 1. back pain 2. BMI 46 3. asthma, anxiety, PCOS Ms. Oleary presents with back pain. The natural history and course of the symptomatology of back pain was discussed in detail with the patient. I answered all questions regarding the mode of onset, pathophysiology, symptoms, imaging findings, treatment options regarding her diagnosis. Recommend initiation of conservative treatment to include physical therapy and tens unity. She complains of polyarthralgia as well - referral placed to rheumatology. Counseled on controlled weight loss. Follow up in 2 months or sooner if issues arise. Plan of care discussed. All questions answered. The patient verbalized understanding of the disease process and agreed to the treatment plan formulated for this visit. Orders Orders: Coding Level of Care Code Off vis,new,level 4 Diagnoses Chronic bilateral low back pain without sciatica M54.5; G89.29 Back pain location: low back pain Chronicity: chronic Back pain laterality: bilateral Sciatica presence: without sciatica 09/22/172151 <Electronically signed by Graciela Grimm MD> Date Graciela Grimm MD Cosigner Signature: Date (if applicable) CC: Soha Shah MD CBC-COMPLETE BLOOD CNT Collected: 09/12/2017 Status: F Source: NICO NO DIFF 11:31 AM [facility] REPOSITORY TYPE CODE TESTS RESULT OUT OF RANGE REFERENCE UNITS LAB L100.1000 4.4-11.0 K/mm3 Normal WBC 6.7 LAB L100.1200 4.2-5.4 M/mm3 Normal RBC 4.86 LAB L100.1300 12.0-15.0 g/dl Normal HGB 13.5 LAB L100.1400 37-47 % Normal HCT 40.6 LAB L100.1500 81-99 fL Normal MCV 83.5 LAB L100.1600 27.0-32.0 pg Normal MCH 27.8 LAB L100.1700 32-36 g/gl Normal MCHC 33.3 LAB L100.1810 11.6-14.6 % Normal RDW CV 13.6 LAB L100.1820 35.1-43.9 fl Normal RDW SD 40.9 LAB L100.1900 150-450 K/mm3 Normal PLT 247 LAB L100.2000 6.2-12.0 fl High MPV 12.4 Performed By: #### L100.0500 #### [facility] [address] [place], [place], [address] HCG TITER QUANT., Collected: 09/12/2017 Status: F Source: NICO SERUM 11:31 AM [facility] REPOSITORY TYPE CODE TESTS RESULT OUT OF RANGE REFERENCE UNITS LAB L700.8000 <9 non-preg mIU/mL Normal HCG < 1 QUANT. Performed By: #### L700.8000 #### [facility] [address] [place], [address] THYROID STIM HORMONE Collected: 09/12/2017 Status: F Source: NICO (TSH) 11:31 AM [facility] REPOSITORY TYPE CODE TESTS RESULT OUT OF RANGE REFERENCE UNITS LAB L501.9520 0.358-3.74 uIU/mL Normal TSH 2.06 Performed By: #### L501.9520, L506.0400, L3100.5125, L3100.5170 #### [facility] [address] [place], [address] T4 FREE DIRECT Collected: 09/12/2017 Status: F Source: NICO 11:31 AM [facility] REPOSITORY TYPE CODE TESTS RESULT OUT OF REFERENCE UNITS RANGE LAB L506.0400 0.76-1.46 ng/dL Low T4 FREE 0.73 DIRECT Performed By: #### L501.9520, L506.0400, L3100.5125, L3100.5170 #### [facility] [address] [place], [address] FOLLICLE STIMULATING Collected: 09/12/2017 Status: F Source: NICO HORMONE 11:31 AM [facility] REPOSITORY TYPE CODE TESTS RESULT OUT OF RANGE REFERENCE UNITS LAB L3100.5125 mIU/mL Normal FSH 1.9 Result Comment: NORMAL REFERENCE RANGES FEMALE FOLLICULAR 2.3 - 12.6 mIU/mL MID-CYCLE PEAK 5.2 - 17.5 mIU/mL LUTEAL 1.7 - 12.9 mIU/mL POST-MENOPAUSAL ON MHT 5.9 - 72.8 mIU/mL NOT ON MHT 12.7 - 132.2 mlU/mL MALE 0.7 - 10.8 mIU/mL NEW TEST METHOD AND REFERENCE RANGES JANUARY 01, 2012 Performed By: #### L501.9520, L506.0400, L3100.5125, L3100.5170 #### [facility] [address] [place], [address] LUTEINIZING HORMONE Collected: 09/12/2017 Status: F Source: NICO 11:31 AM [facility] REPOSITORY TYPE CODE TESTS RESULT OUT OF RANGE REFERENCE UNITS LAB L3100.5170 mIU/mL Normal LH 1.7 Result Comment: NORMAL REFERENCE RANGES FEMALE FOLLICULAR 1.9 - 26.2 mIU/mL MID-CYCLE PEAK 22.8 - 76.1 mIU/mL LUTEAL 0.6 - 16.6 mIU/mL POST-MENOPAUSAL ON MHT 1.1 - 52.4 mIU/mL NOT ON MHT 8.6 - 61.8 mIU/mL MALE 1.2 - 10.6 mIU/mL NEW TEST METHOD AND REFERENCE RANGES JANUARY 01, 2012 Performed By: #### L501.9520, L506.0400, L3100.5125, L3100.5170 #### [facility] [address] [place], [address] L/S SPINE MIN 4 Observed: 09/04/2017 Status: F Source: TRYON VIEWS 12:59 PM [facility] REPOSITORY [facility] Imaging Services [address] [place] [address] L/S Spine Min 4 Views MR#: [id number] Acct: [id number] Name: MARGO OLEARY Rep #: [id number] : 1990 F 27 From: Octavio Rodriguez MD PCP: Care Physician, No Primary Status: REG CLI Study: L/S Spine Min 4 Views Date of Exam: 09/04/17 Exam# [id number] Ordering Dr: Graciela Grimm MD STUDY: X-RAY - LUMBAR SPINE REASON FOR EXAM: Female, 27 years old. Chronic back pain. TECHNIQUE: 4 view(s) of the lumbar spine were obtained including flexion and extension views. COMPARISON: None FINDINGS: Normal lumbar lordosis. There is a mild levoscoliosis of the lumbar spine. There is a normal alignment of the vertebrae. Mild anterior spondylosis at the L3-L4 level. Normal disc space heights. The soft tissue structures are unremarkable. RAD/L/S Spine Min 4 Views IMPRESSION: Degenerative changes of the spine, as detailed above. 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 HPI Boil on Rt side forehead close to the hairline - was I/D 08/27/17 , started on keflex, then was seen in [place] ER 08/28/17 - bactrim added. Now feeling better Redness / swelling much better almost gone. I/D site dry, no drainage. Depression/ anxiety - been on zoloft X 1 year - dose was increased 2 months ago. Has seen psychiatrist - Dr. Williamson - May / Jun. Wants to see someone on a regular basis - requests a referral. Gastric bypass scheduled for November 2017 - Dr. Holt at [facility]. Ongoing preop w/u there. Denies h/o asthma/ COPD. Has h/o chronic LBP - flares up from time to time but not an issue currently. Has a , seeing MEDICAL AFFAIRS SPECIALIST. PAST MEDICAL HISTORY Diagnosis Date - Asthma 1 ER visit in 2008 and >7 times in childhood. - Dysthymic disorder Depression (non-psychotic) - Environmental allergies dust and mold - Family history of diabetes mellitus - Irregular menstrual cycle Irregular periods - Normal vaginal delivery 2008 - Recurrent acute otitis media Sees Dr. Jones - Varicella without mention of complication Chickenpox PAST SURGICAL HISTORY Procedure Laterality Date - APPENDECTOMY 2006 - DRAIN OVARIAN CYST(S),ABD APPRCH 2006 Social History Substance Use Topics - Smoking status: Never Smoker - Smokeless tobacco: Never Used Comment: previously, quit, approximately 100 cigarettes in life - Alcohol use No Family history reviewed. ALLERGIES No Known Allergies Current Outpatient Prescriptions: Omeprazole 20 mg TbEC Take by mouth once daily. mupirocin (BACTROBAN) 2 % ointment Apply 1 application to affected area three times daily for 10 days. hydrOXYzine HCl (ATARAX) 50 mg tablet Take 50 mg by mouth. sertraline (ZOLOFT) 25 mg tablet Take 200 mg by mouth. cyclobenzaprine (FLEXERIL) 10 mg tablet Take 1 tablet by mouth every 8 hours as needed for Muscle Spasm. Cholecalciferol, Vitamin D3, 2,000 unit cap Take 1 tablet by mouth once daily. albuterol HFA (PROAIR HFA) 90 mcg/Actuation INHALATION inhaler Inhale 2 Puffs as instructed every 6 hours as needed. sulfamethoxazole-trimethoprim (BACTRIM DS,SEPTRA DS) 800-160 mg per tablet Take 1 tablet by mouth twice daily for 14 days. cephALEXin (KEFLEX) 500 mg capsule Take 1 capsule by mouth three times daily for 10 days. FOR 10 DAYS rizatriptan (MAXALT) 10 mg tablet Take one 10 mg tablet with onset of headache may repeat in 2hrs. Do not exceed 30 mg in a 24 hour period. venlafaxine XR 75 mg 24 hr capsule Take 1 capsule by mouth once daily. cholecalciferol, Vitamin D3, 50,000 unit cap capsule Take 1 capsule by mouth once each week. No current facility-administered medications for this visit. Review of Systems Constitutional: Negative for chills, fever, malaise/fatigue and weight loss. HENT: Negative for congestion, ear pain and sore throat. Eyes: Negative for blurred vision and double vision. Respiratory: Negative for cough, shortness of breath and wheezing. Cardiovascular: Negative for chest pain, orthopnea and leg swelling. Gastrointestinal: Negative for abdominal pain, constipation, diarrhea, heartburn, nausea and vomiting. Genitourinary: Negative for dysuria. Neurological: Negative for dizziness and headaches. Psychiatric/Behavioral: Negative for suicidal ideas. BP 132/88 Pulse 76 Temp (Src) 98.3 (Oral) Resp 18 Ht 5' 8 (1.73m) Wt 312 lb (141.5kg) LMP 08/26/2017 BMI 47.45 kg/(m2). Physical Exam Constitutional: She is oriented to person, place, and time and well-developed, well-nourished, and in no distress. No distress. HENT: Head: Normocephalic. Eyes: Conjunctivae are normal. Right eye exhibits no discharge. Left eye exhibits no discharge. Cardiovascular: Normal rate, regular rhythm, normal heart sounds and intact distal pulses. No murmur heard. Pulmonary/Chest: Effort normal and breath sounds normal. No respiratory distress. She has no wheezes. Abdominal: Soft. Bowel sounds are normal. She exhibits no distension. There is no tenderness. Musculoskeletal: Edema: no LE edema. Neurological: She is alert and oriented to person, place, and time. Skin: Skin is warm and dry. Psychiatric: Mood and affect normal. pt is m.obese Forehead Rt side - close to hairline -I/D site scabbed over. No surrounding erythema/ edema. ASSESSMENT/PLAN: 1. Cellulitis and abscess of head - ICD9: 682.8, ICD10: L03.811, L02.811 (primary diagnosis) - Continue treatment with Abx. - No lymphangetic streaking, this was defined for patient to watch for and to seek medical care immediately if appears 2. Class 3 obesity with body mass index (BMI) of 45.0 to 49.9 in adult, unspecified obesity type, unspecified whether serious comorbidity present (HCC) - ICD9: 278.00, V85.42, ICD10: E66.9, Z68.42 Ongoing w/u with another provider 3. Vitamin D deficiency - ICD9: 268.9, ICD10: E55.9 Cont replacement 4. Depression with anxiety - ICD9: 300.4, ICD10: F41.8 Cont meds per psych, pt requesting new referral for someone closer - will refer to alternative paths. - CONSULT TO PSYCHIATRY 5. Chronic bilateral low back pain, with sciatica presence unspecified - ICD9: 724.2, 338.29, ICD10: M54.5, G89.29 Chronic low back pain - Patient given instructions back care exercise program, weight loss, improved posture, proper lifting techniques and intermittent use of heat 6. Hyperlipidemia, unspecified hyperlipidemia type - ICD9: 272.4, ICD10: E78.5 - to be determined upon return of lab results, pt has not been on any meds Request records from previous PCP. Further recommendations based on review of old records. Also pt recently had labs done - so will not repeat until old records reviewed. Discussed above plan with patient. Pt agreeable with above plan. Polo Madison MD This note was partially generated using [employer] voice recognition system, and there may be some incorrect words, spellings, and punctuation that were not noted in checking the note before saving. CNOV Observed: 08/31/2017 Status: COMPLETED Source: [place] 10:45 AM [facility] REPOSITORY Office Visit (AGINTMLW) MARGO OLEARY ([id number]) 1990 F Date Time Provider Department 08/31/17 10:45 AM POLO MADISON INTMLW During your visit today, we recorded the following information about you: Temperature Pulse Respiration Blood pressure 98.3 degrees 76/minute 18/minute 132/88 Weight Height 141.5 kg 1.727 m Sylvia Robertson CMA 08/31/2017 10:54 AM Signed Skin disturbance on forward and need to establish care FRANCESCO Schumacher MD 09/17/2017 3:49 AM Signed Subjective: Margo Oleary is a 27 year old White female, Patient presents with: Establish Care Derm Problem . HPI Boil on Rt side forehead close to the hairline - was I/D 08/27/17 , started on keflex, then was seen in [place] ER 08/28/17 - bactrim added. Now feeling better Redness / swelling much better almost gone. I/D site dry, no drainage. Depression/ anxiety - been on zoloft X 1 year - dose was increased 2 months ago. Has seen psychiatrist - Dr. Williamson - May / Jun. Wants to see someone on a regular basis - requests a referral. Gastric bypass scheduled for November 2017 - Dr. Holt at [facility]. Ongoing preop w/u there. Denies h/o asthma/ COPD. Has h/o chronic LBP - flares up from time to time but not an issue currently. Has a infant, seeing MEDICAL AFFAIRS SPECIALIST. PAST MEDICAL HISTORY Diagnosis Date - Asthma 1 ER visit in 2008 and ANDgt;7 times in childhood. - Dysthymic disorder Depression (non-psychotic) - Environmental allergies dust and mold - Family history of diabetes mellitus - Irregular menstrual cycle Irregular periods - Normal vaginal delivery 2008 - Recurrent acute otitis media Sees Dr. Jones - Varicella without mention of complication Chickenpox PAST SURGICAL HISTORY Procedure Laterality Date - APPENDECTOMY 2006 [facility] Social History Substance Use Topics - Smoking status: Never Smoker - Smokeless tobacco: Never Used Comment: previously, quit, approximately 100 cigarettes in life - Alcohol use No Family history reviewed. ALLERGIES No Known Allergies Current Outpatient Prescriptions: Omeprazole 20 mg TbEC Take by mouth once daily. mupirocin (BACTROBAN) 2 % ointment Apply 1 application to affected area three times daily for 10 days. hydrOXYzine HCl (ATARAX) 50 mg tablet Take 50 mg by mouth. sertraline (ZOLOFT) 25 mg tablet Take 200 mg by mouth. cyclobenzaprine (FLEXERIL) 10 mg tablet Take 1 tablet by mouth every 8 hours as needed for Muscle Spasm. Cholecalciferol, Vitamin D3, 2,000 unit cap Take 1 tablet by mouth once daily. albuterol HFA (PROAIR HFA) 90 mcg/Actuation INHALATION inhaler Inhale 2 Puffs as instructed every 6 hours as needed. sulfamethoxazole-trimethoprim (BACTRIM DS,SEPTRA DS) 800-160 mg per tablet Take 1 tablet by mouth twice daily for 14 days. cephALEXin (KEFLEX) 500 mg capsule Take 1 capsule by mouth three times daily for 10 days. FOR 10 DAYS rizatriptan (MAXALT) 10 mg tablet Take one 10 mg tablet with onset of headache may repeat in 2hrs. Do not exceed 30 mg in a 24 hour period. venlafaxine XR 75 mg 24 hr capsule Take 1 capsule by mouth once daily. cholecalciferol, Vitamin D3, 50,000 unit cap capsule Take 1 capsule by mouth once each week. No current facility-administered medications for this visit. Review of Systems Constitutional: Negative for chills, fever, malaise/fatigue and weight loss. HENT: Negative for congestion, ear pain and sore throat. Eyes: Negative for blurred vision and double vision. Respiratory: Negative for cough, shortness of breath and wheezing. Cardiovascular: Negative for chest pain, orthopnea and leg swelling. Gastrointestinal: Negative for abdominal pain, constipation, diarrhea, heartburn, nausea and vomiting. Genitourinary: Negative for dysuria. Neurological: Negative for dizziness and headaches. Psychiatric/Behavioral: Negative for suicidal ideas. BP 132/88 Pulse 76 Temp (Src) 98.3 (Oral) Resp 18 Ht 5' 8ANDquot; (1.73m) Wt 312 lb (141.5kg) LMP 08/26/2017 BMI 47.45 kg/(m2). Physical Exam Constitutional: She is oriented to person, place, and time and well-developed, well-nourished, and in no distress. No distress. HENT: Head: Normocephalic. Eyes: Conjunctivae are normal. Right eye exhibits no discharge. Left eye exhibits no discharge. Cardiovascular: Normal rate, regular rhythm, normal heart sounds and intact distal pulses. No murmur heard. Pulmonary/Chest: Effort normal and breath sounds normal. No respiratory distress. She has no wheezes. Abdominal: Soft. Bowel sounds are normal. She exhibits no distension. There is no tenderness. Musculoskeletal: Edema: no LE edema. Neurological: She is alert and oriented to person, place, and time. Skin: Skin is warm and dry. Psychiatric: Mood and affect normal. pt is m.obese Forehead Rt side - close to hairline -I/D site scabbed over. No surrounding erythema/ edema. ASSESSMENT/PLAN: 1. Cellulitis and abscess of head - ICD9: 682.8, ICD10: L03.811, L02.811 (primary diagnosis) - Continue treatment with Abx. - No lymphangetic streaking, this was defined for patient to watch for and to seek medical care immediately if appears 2. Class 3 obesity with body mass index (BMI) of 45.0 to 49.9 in adult, unspecified obesity type, unspecified whether serious comorbidity present (HCC) - ICD9: 278.00, V85.42, ICD10: E66.9, Z68.42 Ongoing w/u with another provider 3. Vitamin D deficiency - ICD9: 268.9, ICD10: E55.9 Cont replacement 4. Depression with anxiety - ICD9: 300.4, ICD10: F41.8 Cont meds per psych, pt requesting new referral for someone closer - will refer to [facility]. - CONSULT TO PSYCHIATRY 5. Chronic bilateral low back pain, with sciatica presence unspecified - ICD9: 724.2, 338.29, ICD10: M54.5, G89.29 Chronic low back pain - Patient given instructions back care exercise program, weight loss, improved posture, proper lifting techniques and intermittent use of heat 6. Hyperlipidemia, unspecified hyperlipidemia type - ICD9: 272.4, ICD10: E78.5 - to be determined upon return of lab results, pt has not been on any meds Request records from previous PCP. Further recommendations based on review of old records. Also pt recently had labs done - so will not repeat until old records reviewed. Discussed above plan with patient. Pt agreeable with above plan. Polo Madison MD This note was partially generated using [employer] voice recognition system, and there may be some incorrect words, spellings, and punctuation that were not noted in checking the note before saving. Polo Madison MD 08/31/2017 11:33 AM Signed Please get flu vaccine. Referring Provider: SELF [200] Allergies As of Date: 08/31/2017 (No Known Allergies) Date Reviewed: 08/28/2017 Reviewed by: Violeta (Rn) DANIEL Torres - Fully Assessed Reason for Visit: Establish Care [42] Derm Problem [33] Primary Visit Diagnosis:Cellulitis and abscess of head [L03.811, L02.811] Comment:forehead Other Visit Diagnoses:Class 3 obesity with body mass index (BMI) of 45.0 to 49.9 in adult, unspecified obesity type, unspecified whether serious comorbidity present (HCC) [E66.9, Z68.42] Vitamin D deficiency [E55.9] Depression with anxiety [F41.8] Chronic bilateral low back pain, with sciatica presence unspecified [M54.5, G89.29] Hyperlipidemia, unspecified hyperlipidemia type [E78.5] Order(s):CONSULT TO PSYCHIATRY [9035] Order #: [id number]: 1 Prescriptions as of 08/31/2017 Sig: OMEPRAZOLE 20 MG TABLET,DELAY* Take by mouth once daily. MUPIROCIN 2 % TOPICAL OINTMENT Apply 1 application to affect* HYDROXYZINE HCL 50 MG TABLET Take 50 mg by mouth. SERTRALINE 25 MG TABLET Take 200 mg by mouth. CYCLOBENZAPRINE 10 MG TABLET Take 1 tablet by mouth every * CHOLECALCIFEROL (VITAMIN D3) * Take 1 tablet by mouth once d* * ALBUTEROL SULFATE HFA 90 MCG/* Inhale 2 Puffs as instructed * SULFAMETHOXAZOLE 800 MG-TRIME* Take 1 tablet by mouth twice * CEPHALEXIN 500 MG CAPSULE Take 1 capsule by mouth three* Medication notes this encounter SULFAMETHOXAZOLE 800 MG-TRIMETHOPRIM 160 MG TABLET >> Sylvia Robertson CMA 08/31/2017 10:47 AM >> SYLVIA ROBERTSON SunAug 31, 2017 10:47 AM Not taking CEPHALEXIN 500 MG CAPSULE >> Sylvia Robertson CMA 08/31/2017 10:45 AM >> SYLVIA ROBERTSON SunAug 31, 2017 10:45 AM Not taking CHOLECALCIFEROL (VITAMIN D3) 50,000 UNIT CAPSULE >> Sylvia Robertson CMA 08/31/2017 10:46 AM >> SYLVIA ROBERTSON SunAug 31, 2017 10:46 AM finished course Problem List As Of Date 08/31/2017 Noted Resolved Asthma [J45.909] INVALID FOR* Obesity [E66.9] INVALID FOR* Family history of diabetes mellitus [Z83.3] INVALID FOR* Knee pain, right [M25.561] INVALID FOR* Ankle pain, left [M25.572] INVALID FOR* Depression [F32.9] INVALID FOR* Abdominal cramping, bilateral lower quadrant [R*INVALID FOR* More... Vitamin d deficiency [E55.9] INVALID FOR* Low back pain [M54.5] INVALID FOR* Left wrist sprain [S63.502A] INVALID FOR* Left hand pain [M79.642] INVALID FOR* Lumbar paraspinal muscle spasm [M62.830] INVALID FOR* Notes for Staff Discussed this visit Other instructions from your clinician: Please get flu vaccine. Visit Notes: >> Sylvia Robertson SunAug 31, 2017 10:42 AM Status: Signed Skin disturbance on forward and need to establish care Sylvia Robertson CMA Medications Discontinued During This Encounter rizatriptan (MAXALT) 10 mg tablet 15 t* 0 04/08/2013 08/31/2017 Sig: Take one 10 mg tablet with onset of headache may repeat in 2hrs. Do not exceed 30 mg in a 24 hour period. Disc: Discontinued by Patient Cosign accepted by EMRE WILEY DO, V[[id number]] on 04/08/2013 5:58 PM venlafaxine XR 75 mg 24 hr capsule 30 c* 3 11/07/2012 08/31/2017 Route: ORAL Sig: Take 1 capsule by mouth once daily. Disc: Course of therapy completed cholecalciferol, Vitamin D3, 50,000 * 8 ca* 0 10/08/2012 08/31/2017 Route: ORAL Sig: Take 1 capsule by mouth once each week. Disc: Course of therapy completed Follow Up: Discussed this visit Disposition: Return in about 6 months (around 02/28/2018). Follow-up and Disposition History Recorded Questionnaire: PHQ-9 THE LAST 2 WEEKS, HAVE YOU BEEN BOTHERED BY ANY OF THE FOLLOWING? -> - Little interest or pleasure in doing things -> 0 NOT AT ALL Feeling down, depressed, or hopeless -> 1 Trouble falling or staying asleep, or sleeping too much - > 3 Feeling tired or having little energy -> 3 Poor appetite or overeating -> 2 Feeling bad yourself-you are a failure or have let yourself or others -> 1 Trouble concentrating, like reading the paper or watching TV -> 3 Moving/speaking slowly (others notice) OR being more fidgety/restless -> 1 Thoughts that you would be better off or of hurting yourself -> 0 PHQ TOTAL SCORE = -> 14 PHQ problems effect on difficulty of work, home, and social activity: -> 1 - NOT DIFFICULT AT ALL Questionnaire: ELA-7 ANXIETY SCALE Feeling nervous, anxious, or on edge -> 3 Nearly every day Not being able to stop or control worrying -> 3 Nearly every day Worrying too much about different things -> 3 Nearly every day Trouble relaxing -> 3 Nearly every day Being so restless that it's hard to sit still -> 1 Several days Being easily annoyed or irritable -> 3 Nearly every day Feeling afraid as if something awful might happen -> 1 Several days ELA-7 Anxiety Score -> 17 If you checked off any problems, how difficult have these problems made it for you to do your work, take care of things at home, or get along with other people? -> Very difficult Encounter Status:Closed by MD LOS, POLO on 09/17/17 CNCO Observed: 08/31/2017 Status: COMPLETED Source: [place] 12:00 AM [facility] REPOSITORY Letter Text [address] Dept phone: [phone] Dept Terrance Lackey, August 31, 2017 Margo Oleary [address] [place] [address] 1990 Dear Ms. Oleary, You have been referred to: [facility] to be evaluated and treated for: Depression with anxiety . This physician can be reached at: [phone] or [phone]. It is your responsibility to make your own appointment. We then request that you notify our office of the date of your appointment so that we can verify if a referral is required by your insurance carrier and is processed in the appropriate time. If you do not notify us of the date of your appointment, we will not be able to do the referral or be able to have a letter and copy of test results to the physician in time for your visit. We appreciate your assistance. Sincerely, Polo Madison M.D. (Signed electronically to expedite mailing) CT HEAD W/O CONTRAST Observed: 08/28/2017 Status: F Source: [facility] 6:14 PM HEALTH SYSTEM REPOSITORY Performed at [facility] APPROVED BY: Steve Prince MD Exam Title: CT HEAD WITHOUT INTRAVENOUS CONTRAST DATE:08/28/2017 17:48 Comparison: None. Clinical Indication/History: Headache, recent drainage of scalp cyst Technique: CT examination of the brain was performed without intravenous contrast. FINDINGS: The ventricles are appropriate in size and position. There is no acute hemorrhage, infarction, or mass. No abnormal extra-axial fluid collection is seen. The calvarium is intact. The visualized paranasal sinuses are clear. There is focal swelling and subcutaneous fat infiltration involving the right frontal scalp. No obvious encapsulated fluid collection is present. CT Radiation dose: Integrated Dose-length product (DLP) for this visit = 772 mGy*cm. CT Dose Reduction Employed: 5 IMPRESSION: No acute intracranial abnormality. There is a focal region of soft tissue swelling and infiltration involving the right frontal scalp, presumably at the site of known cystic abnormality. ED NOTE Observed: 08/28/2017 Status: COMPLETED Source: [place] 6:13 PM [facility] REPOSITORY HNO ID: [id number] Author: Yudelka Sethi) DANIEL San Service: Emergency Medicine Author Type: Registered Nurse Type: ED Notes Filed: 08/28/2017 6:48 PM Note Text: Patient returned to the Emergency Department. ED NOTE Observed: 08/28/2017 Status: COMPLETED Source: [place] 6:05 PM [facility] REPOSITORY HNO ID: [id number] Author: Yudelka Sethi) DANIEL San Service: Emergency Medicine Author Type: Registered Nurse Type: ED Notes Filed: 08/28/2017 6:48 PM Note Text: Patient transported to radiology with Tech. Observed: 08/28/2017 Status: F Source: [facility] 6:00 PM HEALTH SYSTEM AND AER REPOSITORY Test performed at [facility] No WBC seen No organisms seen Smear difficult to evaluate due to small amount of specimen. ORGANISM: Acinet baumannii/haemolyticus (ID: 1) Few ORGANISM: Methicillin Resist S.aureus (ID: 2) Rare ORGANISM: Staphylococcus species not aureus (ID: 3) Rare ORGANISM: Propionibacterium species (ID: 4) Few Performed By: #### C_ANA #### [place] [address] Observed: 08/28/2017 Status: F Source: [facility] MRSA/MSSA SCREEN 6:00 PM HEALTH SYSTEM REPOSITORY Test performed at [facility] No Staph aureus or MRSA detected. Performed By: #### PSTSS #### [facility] [address] [place], [place] [address] ED PROV NOTE Observed: 08/28/2017 Status: COMPLETED Source: [place] 5:42 PM [facility] REPOSITORY HNO ID: [id number] Author: Siddharth Pringle MD Service: Emergency Medicine Author Type: Physician Type: ED Provider Notes Filed: 08/28/2017 7:12 PM Note Text: ED Provider Note Patient Name: Margo Oleary SERVICE DATE: 08/28/17 History Patient presents with: Cyst patient presents complaining of swelling to the right side were for her to began 4 days ago. She denies any injury to the area. She was seen in urgent care 2 days ago and was placed on Keflex. She went to the [facility] department yesterday and had it lanced. She went back today and complained of increased swelling and they told her to ice the area. Patient reports that up Sunday she had been using warm compresses and ibuprofen. She denies any drainage from the area. She reports the swelling had increased this morning. She denies any constitutional symptoms. No fever, chills, nausea, or vomiting. History provided by: Patient PAST MEDICAL HISTORY Diagnosis Date - Asthma 1 ER visit in 2008 and >7 times in childhood. - Dysthymic disorder Depression (non-psychotic) - Environmental allergies dust and mold - Family history of diabetes mellitus - Irregular menstrual cycle Irregular periods - Normal vaginal delivery 2008 - Recurrent acute otitis media Sees Dr. Jones - Varicella without mention of complication Chickenpox PAST SURGICAL HISTORY Procedure Laterality Date - APPENDECTOMY 2006 - DRAIN OVARIAN CYST(S),ABD AP[facility] 2006 FAMILY HISTORY Problem Relation Age of Onset - Diabetes Mother - Heart Mother arrythmia - Diabetes Brother - Diabetes Maternal Grandmother - Diabetes Maternal Grandfather - Diabetes Paternal Grandmother - Diabetes Paternal Grandfather - Cancer Maternal Grandmother skin cancer - type unknown Social History Social History Main Topics - Smoking status: Never Smoker - Smokeless tobacco: Never Used Comment: previously, quit, approximately 100 cigarettes in life - Alcohol use No - Drug use: No - Sexual activity: Not Asked ALLERGIES No Known Allergies Review of Systems Constitutional: Negative for chills, diaphoresis and fever. HENT: Negative for ear pain and sore throat. Respiratory: Negative for cough, chest tightness, shortness of breath and wheezing. Cardiovascular: Negative for chest pain and palpitations. Gastrointestinal: Negative for abdominal pain, blood in stool, constipation, diarrhea, nausea and vomiting. Genitourinary: Negative for dysuria, frequency and hematuria. Skin: Positive for rash. Neurological: Negative for weakness, numbness and headaches. All other systems reviewed and are negative. Physical Exam BP 140/81 Pulse 89 Temp (Src) 97.6 (Temporal Artery) Resp 18 Ht 5' 8 (1.73m) Wt 302 lb (137.0kg) SpO2 98% LMP 08/26/2017 BMI 45.93 kg/(m2). Physical Exam Constitutional: She is oriented to person, place, and time. She appears well-developed and well-nourished. HENT: Head: Normocephalic and atraumatic. Eyes: Conjunctivae are normal. Pupils are equal, round, and reactive to light. Neck: Normal range of motion. Cardiovascular: Normal rate, regular rhythm and normal heart sounds. No murmur heard. Pulmonary/Chest: Effort normal and breath sounds normal. No respiratory distress. Abdominal: Soft. Bowel sounds are normal. She exhibits no distension. There is no tenderness. There is no rebound and no guarding. No peritoneal signs. Musculoskeletal: Normal range of motion. She exhibits no tenderness. Lymphadenopathy: She has no cervical adenopathy. Neurological: She is alert and oriented to person, place, and time. She has normal strength. No cranial nerve deficit or sensory deficit. Skin: Skin is warm and dry. Rash noted. Soft tissue swelling to the right side of her forehead that begins at the hairline. It extends inferiorly to the midline between her eyebrows. There is no erythema or warmth. It is not fluctuant. No appreciable induration. Psychiatric: She has a normal mood and affect. Diagnostic Testing ED Labs Ordered and Reviewed - No data to display CT brain shows no fluid collection amenable to drainage. Procedures Medical Decision Making / ED Course ED Course the patient was treated with Bactrim by mouth. She is resting comfortably. Encounter Diagnosis ICD-10-CM 1. Abscess L02.91 Plan The patient will have Bactrim and Bactroban added to her Keflex. She is instructed to use warm compresses. Follow-up with Dr. Bonds in 2 days if not improving. She does understand that if this is not improving she may require more formal ID which I suggested would be more likely to occur in the emergency department and then a primary care physician's office. She is instructed to return to the emergency department if her symptoms are worsening. The Patient was DISCHARGED: Counseled patient regarding radiology results AND need for follow-up. Discharged home with verbal and written instructions. They were instructed to return as needed for persistent or worsening symptoms or any new concerns. Condition at time of disposition: stable SIGNATURE: MD Siddharth Posada MD 08/28/171910 Siddharth Pringle MD 08/28/171911 ED NOTE Observed: 08/28/2017 Status: COMPLETED Source: [place] 5:03 PM [facility] REPOSITORY HNO ID: [id number] Author: Violeta (Rn) DANIEL Torres Service: Emergency Medicine Author Type: Registered Nurse Type: ED Notes Filed: 08/28/2017 5:04 PM Note Text: Pt reports being seen at Urgent Care on Sunday for cyst, then seen again on Sunday. Pt came to our facility directly from [facility] EMERGENCY DEPARTMENT Observed: 08/28/2017 Status: F Source: [place] SUMMARY 3:18 PM [facility] REPOSITORY [facility] Medical Records Department [address] [place] [address] Emergency Department Summary 08/28/17 1516 MR#: [id number] Acct: [id number] Name: MARGO OLEARY Rep #: [id number] : 1990 27 From: Kartik Kramer MD PCP: Care Physician, No Primary Status: REG ER - ER Visit Summary Date of Service: 08/28/17 Chief Complaint: Abscess History of Present Illness: The patient is a 27 F who was recently seen for an abscess. She initially noticed swelling and pain in the right upper forehead. She was seen in urgent care and told to come back the next day for an I AND D. She had a being seen in the emergency department and undergoing incision and drainage. She has been using warm compresses. Initially she was swollen on the top of her head. This is decreased but now she notes swelling on the right side her face around her right eye. Physical Examination: Afebrile vitals are stable Patient does have right facial and periorbital edema as well as erythema and an area of cellulitis on her right upper forehead. Heart regular rate and rhythm Lungs clear Abdomen soft Test Results: Not indicated Emergency Department Course and Treatment: I believe the patient's facial edema is reactive with her abscess. It is unilateral and isolated to around the area of infection. Given the lack of any rash and only unilateral symptoms I do not believe this is an adverse medication reaction. She was advised on supportive care including icing and elevating. Patient was discharged. Treatment Plan: [] Disposition: Discharge Impression: Right forehead abscess Facial edema This note was generated with [employer] dictation software. It may contain incorrect words, spelling, and punctuation that were not noted in review of the chart prior to signing ED Disposition - Plan for ED Patient: Chief Complaint: Edema Instructions: ED Abscess IandD Referrals: Care Physician,No Primary [Primary Care Provider] - What to do if you have Problems For any increased pain, shortness of breath, bleeding, nausea or vomiting, chest pain, or any unexpected problems, contact your Primary Care Provider. Call [facility] ([phone]) or report to the closest Emergency Room. Call 911 if necessary. 08/28/17 1518 <Electronically signed by Kartik Kramer MD> Date Kartik Kramer MD Cosigner Signature (If Indicated): Date CC: No Primary Care Physician DISCHARGE INSTRUCTION Observed: 08/28/2017 Status: F Source: [place] 3:16 PM [facility] REPOSITORY [facility] Medical Records Department [address] [place] [address] Discharge Instruction 08/28/17 1515 MR#: [id number] Acct: [id number] Name: MARGO OLEARY Rep #: [id number] : 1990 27 From: Kartik Kramer MD PCP: Dulce Maria Physician, No Primary Status: REG ER ED Disposition - Plan for ED Patient: Chief Complaint: Edema Instructions: ED Abscess IandD Referrals: Care Physician,No Primary [Primary Care Provider] - What to do if you have Problems For any increased pain, shortness of breath, bleeding, nausea or vomiting, chest pain, or any unexpected problems, contact your Primary Care Provider. Call [facility] ([phone]) or report to the closest Emergency Room. Call 911 if necessary. 08/28/17 1516 <Electronically signed by Kartik Kramer MD> Date Kartik Kramer MD Cosigner Signature (If Indicated): Date CC: No Primary Care Physician EMERGENCY DEPARTMENT Observed: 08/27/2017 Status: F Source: [place] SUMMARY 11:07 [facility] Medical Records Department [address] [place] [address] Emergency Department Summary 08/27/17 1039 MR#: [id number] Acct: [id number] Name: MARGO OLEARY Rep #: [id number] : 1990 27 From: Renan Murphy MD PCP: Dulce Maria Pichardo, No Primary Status: PRE ER - ER Visit Summary Date of Service: 08/27/17 Chief Complaint: [] History of Present Illness: The patient is a 27 F [] Physical Examination: [] Test Results: [] Emergency Department Course and Treatment: [] Treatment Plan: Patient was upset at the previous physician so she requested a new physician. I was asked to see the patient for IND. This was performed using 1% lidocaine. Field block was used. A cruciate incision was made. A good amount of pus return. She will continue her antibiotics at home. Disposition: Discharge Impression: Forehead abscess with I AND D This note was generated with Dragon dictation software. It may contain incorrect words, spelling, and punctuation that were not noted in review of the chart prior to signing <Piyush Cobos - Last Filed: 08/27/17 11:04> - ER Visit Summary Date of Service: 08/27/17 Chief Complaint: Right-sided forehead pain and swelling secondary to abscess History of Present Illness: The patient is a 27 F who was seen yesterday at urgent care and placed on antibiotic that begins with an F. She denies fever, chills or night sweats. She denies any ocular, visual or auditory symptoms. She does complain of pain right frontal area as well. She denies a traumatic fever, murmur, SBE, IV drug use to be an immune suppressed. Physical Examination: Patient's vitals are marked for an elevated blood pressure 139/89. There is an area of fluctuance. The entire right side of the forehead is swollen and tender as well as the right frontal area. Pupils are equal round reactive. Extra muscle intact. TMs are normal. She is alert and oriented with a nonfocal neurologic exam. Heart is regular without murmur, gallop or rub. S1 and S2 are normal. Lungs are clear to auscultation with good movement of air bilaterally. Test Results: None Emergency Department Course and Treatment: Patient was consented for I AND D. She understands she will have a scar. The area was anesthetized by a super orbital and trochlear nerve block using 1% lidocaine. Treatment Plan: I was informed by the charge nurse that she was offended that I did not knock prior to entering the room and because I palpate her head and caused her pain she contact her mother. Mother old her to have another doctor see her. Therefore she was seen by the other emergency physician. Disposition: Per Dr. Marlon Cobos Impression: Forehead abscess This note was generated with [employer] dictation software. It may contain incorrect words, spelling, and punctuation that were not noted in review of the chart prior to signing <Renan Murphy - Last Filed: 08/27/17 11:07> ED Disposition <Piyush Cobos - Last Filed: 08/27/17 11:04> <Renan Murphy - Last Filed: 08/27/17 11:07> - Plan for ED Patient: Disposition: Home or Assisted Living Chief Complaint: Abscess Instructions: ED Abscess IandD Referrals: Care Physician,No Primary [Primary Care Provider] - What to do if you have Problems For any increased pain, shortness of breath, bleeding, nausea or vomiting, chest pain, or any unexpected problems, contact your Primary Care Provider. Call [facility] ([phone]) or report to the closest Emergency Room. Call 911 if necessary. 08/27/17 1107 <Electronically signed by Renna Murphy MD> Date Renan Murphy MD 08/27/17 1105<Electronically signed by Piyush Cobos MD> Cosigner Signature (If Indicated): Date Piyush Cobos MD CC: No Primary Care Physician DISCHARGE INSTRUCTION Observed: 08/27/2017 Status: F Source: TRYON 11:06 AM [facility] REPOSITORY [facility] Medical Records Department [address] [place] [address] Discharge Instruction 08/27/171104 MR#: [id number] Acct: [id number] Name: MARGO OLEARY Rep #: [id number] : 1990 27 From: Piyush Cobos MD PCP: Care Physician, No Primary Status: PRE ER ED Disposition - Plan for ED Patient: Disposition: Home or Assisted Living Chief Complaint: Abscess Instructions: ED Abscess IandD Referrals: Care Physician,No Primary [Primary Care Provider] - What to do if you have Problems For any increased pain, shortness of breath, bleeding, nausea or vomiting, chest pain, or any unexpected problems, contact your Primary Care Provider. Call [facility] ([phone]) or report to the closest Emergency Room. Call 911 if necessary. 08/27/17 1106 <Electronically signed by Piyush Cobos MD> Date Piyush Jansen Signature (If Indicated): Date CC: No Primary Care Physician PROGRESS Observed: 08/26/2017 Status: COMPLETED Source: [place] 4:39 PM [facility] REPOSITORY HNO ID: [id number] Author: Graciela Arteaga Service: (none) Author Type: Nurse Practitioner Type: Progress Notes Filed: 08/26/2017 4:46 PM Note Text: HPI Pt presents with c/o forehead swelling x 3 days. States had pimple and popped it. Since then swelling has spread down toward right eye. Denies eye pain, vision change, fever, chills. No hx MRSA. Review of Systems Constitutional: Negative for chills and fever. Physical Exam Constitutional: She is oriented to person, place, and time and well-developed, well-nourished, and in no distress. No distress. HENT: Head: Red: raised lesion, scab covering. Minimal induration. No drainage. Blue: edema Neurological: She is alert and oriented to person, place, and time. Skin: Skin is warm and dry. She is not diaphoretic. BP 124/92 Pulse 80 Temp 36.9 ?C (98.4 ?F) (Tympanic) Resp 18 Wt (!) 141.5 kg (312 lb) LMP 08/26/2017 (LMP Unknown) BMI 48.14 kg/m2 .Patient presents with: Abscess: forehead x 3 day PAST MEDICAL HISTORY Diagnosis Date - Asthma 1 ER visit in 2008 and >7 times in childhood. - Dysthymic disorder Depression (non-psychotic) - Environmental allergies dust and mold - Family history of diabetes mellitus - Irregular menstrual cycle Irregular periods - Normal vaginal delivery 2008 - Recurrent acute otitis media Sees Dr. Jones - Varicella without mention of complication Chickenpox PAST SURGICAL HISTORY Procedure Laterality Date - APPENDECTOMY 2006 - [facility] ALL[facility] Review of patient's allergies indicates no known allergies. MEDICATIONS hydrOXYzine HCl (ATARAX) 50 mg tablet Take 50 mg by mouth. rizatriptan (MAXALT) 10 mg tablet Take one 10 mg tablet with onset of headache may repeat in 2hrs. Do not exceed 30 mg in a 24 hour period. cyclobenzaprine (FLEXERIL) 10 mg tablet Take 1 tablet by mouth every 8 hours as needed for Muscle Spasm. venlafaxine XR 75 mg 24 hr capsule Take 1 capsule by mouth once daily. Cholecalciferol, Vitamin D3, 2,000 unit cap Take 1 tablet by mouth once daily. cholecalciferol, Vitamin D3, 50,000 unit cap capsule Take 1 capsule by mouth once each week. albuterol HFA (PROAIR HFA) 90 mcg/Actuation INHALATION inhaler Inhale 2 Puffs as instructed every 6 hours as needed. sertraline (ZOLOFT) 25 mg tablet Take 200 mg by mouth. cephALEXin (KEFLEX) 500 mg capsule Take 1 capsule by mouth three times daily for 10 days. FOR 10 DAYS FAMILY HISTORY Problem Relation Age of Onset - Diabetes Mother - Heart Mother arrythmia - Diabetes Brother - Diabetes Maternal Grandmother - Diabetes Maternal Grandfather - Diabetes Paternal Grandmother - Diabetes Paternal Grandfather - Cancer Maternal Grandmother skin cancer - type unknown Social History Substance Use Topics - Smoking status: Never Smoker - Smokeless tobacco: Never Used Comment: previously, quit, approximately 100 cigarettes in life - Alcohol use Not on file ASSESSMENT/PLAN: 1. Boil, face - ICD9: 680.0, ICD10: L02.02 - CEPHALEXIN 500 MG CAPSULE - CONSULT TO GENERAL SURGERY PSR to assist in scheduling this for 08/27/17. Encouraged moist, warm compresses several times daily. The patient is instructed to return or seek emergency treatment if symptoms become worse or with any acute change in condition. The patient verbalizes understanding and is in agreement with plan of care. PAO Manzanares Observed: 08/26/2017 Status: COMPLETED Source: [place] 2:30 PM [facility] REPOSITORY Office Visit (WSTR) MARGO OLEARY ([id number]) 1990 F Date Time Provider Department 08/26/17 2:30 PM GRACIELA ARTEAGA [facility] During your visit today, we recorded the following information about you: Temperature Pulse Respiration Blood pressure 98.4 degrees 80/minute 18/minute 124/92 Weight Last Period 141.5 kg 08/26/17 Graciela Arteaga CNP 08/26/2017 4:46 PM Signed HPI Pt presents with c/o forehead swelling x 3 days. States had pimple and popped it. Since then swelling has spread down toward right eye. Denies eye pain, vision change, fever, chills. No hx MRSA. Review of Systems Constitutional: Negative for chills and fever. Physical Exam Constitutional: She is oriented to person, place, and time and well-developed, well-nourished, and in no distress. No distress. HENT: Head: Red: raised lesion, scab covering. Minimal induration. No drainage. Blue: edema Neurological: She is alert and oriented to person, place, and time. Skin: Skin is warm and dry. She is not diaphoretic. BP 124/92 Pulse 80 Temp 36.9 ?C (98.4 ?F) (Tympanic) Resp 18 Wt (!) 141.5 kg (312 lb) LMP 08/26/2017 (LMP Unknown) BMI 48.14 kg/m2 .Patient presents with: Abscess: forehead x 3 day PAST MEDICAL HISTORY Diagnosis Date - Asthma 1 ER visit in 2008 and ANDgt;7 times in childhood. - Dysthymic disorder Depression (non-psychotic) - Environmental allergies dust and mold - Family history of diabetes mellitus - Irregular menstrual cycle Irregular periods - Normal vaginal delivery 2008 - Recurrent acute otitis media Sees Dr. Jones - Varicella without mention of complication Chickenpox PAST SURGICAL HISTORY Procedure Laterality Date - APPENDECTOMY 2006 - DRAIN [facility]VARIAN [facility] ALL[facility] Review of patient's allergies indicates no known allergies. MEDICATIONS hydrOXYzine HCl (ATARAX) 50 mg tablet Take 50 mg by mouth. rizatriptan (MAXALT) 10 mg tablet Take one 10 mg tablet with onset of headache may repeat in 2hrs. Do not exceed 30 mg in a 24 hour period. cyclobenzaprine (FLEXERIL) 10 mg tablet Take 1 tablet by mouth every 8 hours as needed for Muscle Spasm. venlafaxine XR 75 mg 24 hr capsule Take 1 capsule by mouth once daily. Cholecalciferol, Vitamin D3, 2,000 unit cap Take 1 tablet by mouth once daily. cholecalciferol, Vitamin D3, 50,000 unit cap capsule Take 1 capsule by mouth once each week. albuterol HFA (PROAIR HFA) 90 mcg/Actuation INHALATION inhaler Inhale 2 Puffs as instructed every 6 hours as needed. sertraline (ZOLOFT) 25 mg tablet Take 200 mg by mouth. cephALEXin (KEFLEX) 500 mg capsule Take 1 capsule by mouth three times daily for 10 days. FOR 10 DAYS FAMILY HISTORY Problem Relation Age of Onset - Diabetes Mother - Heart Mother arrythmia - Diabetes Brother - Diabetes Maternal Grandmother - Diabetes Maternal Grandfather - Diabetes Paternal Grandmother - Diabetes Paternal Grandfather - Cancer Maternal Grandmother skin cancer - type unknown Social History Substance Use Topics - Smoking status: Never Smoker - Smokeless tobacco: Never Used Comment: previously, quit, approximately 100 cigarettes in life - Alcohol use Not on file ASSESSMENT/PLAN: 1. Boil, face - ICD9: 680.0, ICD10: L02.02 - CEPHALEXIN 500 MG CAPSULE - CONSULT TO GENERAL SURGERY PSR to assist in scheduling this for 08/27/17. Encouraged moist, warm compresses several times daily. The patient is instructed to return or seek emergency treatment if symptoms become worse or with any acute change in condition. The patient verbalizes understanding and is in agreement with plan of care. Graciela Arteaga CNP Referring Provider: SELF [200] Allergies As of Date: 08/26/2017 (No Known Allergies) Date Reviewed: 08/26/2017 Reviewed by: Roxann Romero LPN - Fully Assessed Reason for Visit: Abscess [1744] Cmt: forehead x 3 day Primary Visit Diagnosis:Boil, face [L02.02] Order(s):cephALEXin (KEFLEX) 500 mg capsuleTake 1 capsule by mouth three times daily for 10 days. FOR 10 DAYSDisp: 30 capsuleRfl: 0 CONSULT TO GENERAL SURGERY [9011] Order #: [id number]: 1 Prescriptions as of 08/26/2017 Sig: HYDROXYZINE HCL 50 MG TABLET Take 50 mg by mouth. RIZATRIPTAN 10 MG TABLET Take one 10 mg tablet with on* CYCLOBENZAPRINE 10 MG TABLET Take 1 tablet by mouth every * VENLAFAXINE ER 75 MG CAPSULE,* Take 1 capsule by mouth once * CHOLECALCIFEROL (VITAMIN D3) * Take 1 tablet by mouth once d* CHOLECALCIFEROL (VITAMIN D3) * Take 1 capsule by mouth once * * ALBUTEROL SULFATE HFA 90 MCG/* Inhale 2 Puffs as instructed * SERTRALINE 25 MG TABLET Take 200 mg by mouth. CEPHALEXIN 500 MG CAPSULE Take 1 capsule by mouth three* Medication notes this encounter HYDROXYZINE HCL 50 MG TABLET >> Roxann Romero LPN 08/26/2017 3:00 PM >> ROXANN ROMERO LPN Aug 26, 2017 3:00 PM [facility] Sig: Take 50 mg by mouth every 6 hours as needed RIZATRIPTAN 10 MG TABLET >> Roxann Romero LPN 08/26/2017 2:59 PM >> ROXANN ROMERO LPN Aug 26, 2017 2:59 PM Not taking VENLAFAXINE ER 75 MG CAPSULE,EXTENDED RELEASE 24 HR >> Roxann Romero LPN 08/26/2017 2:59 PM >> ROXANN ROMERO LPN Aug 26, 2017 2:59 PM Not taking SERTRALINE 25 MG TABLET >> Roxann Romero LPN 08/26/2017 3:00 PM >> ROXANN ROMERO LPN Aug 26, 2017 3:00 PM Received from: [facility] [place] Received Sig: Take 200 mg by mouth daily Problem List As Of Date 08/26/2017 Noted Resolved Asthma [J45.909] INVALID FOR* Obesity [E66.9] INVALID FOR* Family history of diabetes mellitus [Z83.3] INVALID FOR* Knee pain, right [M25.561] INVALID FOR* Ankle pain, left [M25.572] INVALID FOR* Depression [F32.9] INVALID FOR* Abdominal cramping, bilateral lower quadrant [R*INVALID FOR* More... Vitamin d deficiency [E55.9] INVALID FOR* Low back pain [M54.5] INVALID FOR* Left wrist sprain [S63.502A] INVALID FOR* Left hand pain [M79.642] INVALID FOR* Lumbar paraspinal muscle spasm [M62.830] INVALID FOR* Prescriptions ordered this encounter Disp Refills Start End CEPHALEXIN 500 MG CAPSULE 30 c* 0 08/26/2017 09/05/2017 Route: ORAL Sig: Take 1 capsule by mouth three times daily for 10 days. FOR 10 DAYS Encounter Status:Closed by GRACIELA ARTEAGA CNP on 08/26/17 ALLERGIES ALLERGIES DATE TYPE / CODE NAME / CODE REACTION SEVERITY SOURCE 07/25/2018 Drug No Known Unknown [facility] Allergy/416 Allergies/O42715 Hospital 576297(SNOM 0388(RXNORM) Repository ED CT) Drug NO KNOWN [facility] Class/47447 ALLERGIES [facility] 1003(SNOMED Repository CT) ENCOUNTERS ENCOUNTERS ADMIT/DISCHARGE ACCOUNT NUMBER ADMITTING ENCOUNTER LOCATION SOURCE CLASS 07/25/2018/07/25/20 [id number] Ambulatory BMSBuilding: [place] 18 BMS.[facility] Repository 07/18/2018 [id number] Ambulatory [facility] ding:OPBI Repository 07/12/2018 [id number] [facility] Repository 07/09/2018 [id number] Ambulatory [facility] ding:LAB.FUT Repository URE 06/02/2018/06/02/20 [id number] Emergency [address] ding:ED Repository 05/24/2018/05/24/20 [id number] [facility] 05/17/2018 [id number] Ambulatory [facility] ding:LABSPEC Repository 05/17/2018/05/17/20 [id number] Ambulatory BMSBuilding: [place] 18 [facility] Repository 05/13/2018 [id number] [facility] ding:LABSPEC Repository 04/26/2018 [id number] Ambulatory [facility] Repository 04/19/2018 [id number] [facility] Repository 03/28/2018 [id number] [facility] Repository 03/25/2018 [id number] [facility] Repository 02/28/2018 [id number] Ambulatory [facility] Repository 02/21/2018 [id number] Inpatient BuildinA [facility] Encounter 6WRoom: System [id number]: Repository [id number] 02/14/2018 [id number] Ambulatory [facility] Repository 02/14/2018 [id number] Ambulatory [facility] Repository 01/25/2018 [id number] Ambulatory Building:OPG [facility] Repository 01/25/2018 [id number] Ambulatory Building:OPG [facility] Repository 01/17/2018 [id number] Ambulatory [facility] System Repository 01/17/2018 [id number] Ambulatory [facility] System Repository 01/02/2018 [id number] Ambulatory [facility] System Repository 12/06/2017 [id number] Ambulatory [facility] System Repository 12/03/2017 [id number] Ambulatory [facility] ding:LABSPEC Repository 11/20/2017 [id number] Ambulatory [facility] System Repository 11/06/2017 [id number] Ambulatory [facility] ding:LABSPEC Repository 10/25/2017 [id number] Ambulatory [facility] System Repository 09/28/2017 [id number] Ambulatory [facility] Repository 09/12/2017 [id number] Ambulatory [facility] ding:WOBLAB Repository 09/04/2017 [id number] Ambulatory [facility] ding:HPRAD Repository 09/04/2017/09/04/19 [id number] Ambulatory BMSBuilding: [place] 18 [facility] Repository 08/28/2017/08/28/19 [id number] Emergency [place] [address] ding:ED Repository 08/27/2017/08/27/19 [id number] Emergency [place] [address] ding:ED Repository 08/26/2017/08/28/19 [id number] Ambulatory [address] Repository 08/24/2017 [id number] Ambulatory [facility] System Repository PAYERS PAYERS ENCOUNTER GUARANTOR PAYER SUBSCRIBER SOURCE 07/25/2018 MARGO A Primary Insurance:[facility] [place] [facility] Number: [id number] Hospital [address]Zyq: [phone] [id number] Repository [phone] () Date:[id number] [address] [address]KE: 07/25/2018 Secondary NOT GIVENUNK [place] Insurance:SELF PAY [facility] Hospital Number: Effective Repository Date:2018-07-25 07/18/2018 MARGO A Primary Insurance:[facility] [place] [facility] Number: [id number] Hospital [address]Xin: [phone] [id number] Repository [phone] () Date:[id number] [address] [address]AU: 07/18/2018 Secondary NOT GIVENUNK [place] Insurance:SELF PAY [facility] Number: Effective Repository Date:2018-07-17 07/12/2018 Margo A Primary Margo A [facility]: Insurance:[facility]: System [id number] Number: Effective [place], [place] Date: [address]Nhk: () 07/09/2018 MARGO A Primary Insurance:[facility] [place] [place] Number: [id number] Hospital [address]Mzw: [phone] [id number] Repository [phone] () Date:4150-63-01KX [address] [address]OD: 07/09/2018 Secondary NOT GIVENUNK [place] Insurance:SELF PAY [facility] Hospital Number: Effective Repository Date:2018-07-05 06/02/2018 MARGO A Primary Insurance:[facility] [place] Number: [id number] Hospital [address]Qhm: 330 [id number] Repository [phone] () Date:4576-49-16QS [address] [address]QM: 06/02/2018 Secondary NOT GIVENUNK [place] Insurance:SELF PAY [facility] Hospital Number: Effective Repository Date:2018-06-02 05/24/2018 MARGO A Primary Insurance:[facility] MARGO A [place] [id number] [facility] [place] Number: [id number] Hospital [address]Aba: 330 [id number] Repository [phone] () Date:2061-64-59BL [address] [address]ZJ: 05/24/2018 Secondary NOT GIVENUNK [place] Insurance:SELF PAY [facility] Hospital Number: Effective Repository Date:2018-05-24 05/17/2018 MARGO A Primary Insurance:[facility] MARGO A [place] [id number] [facility] Number: [id number] Hospital [address]Pwe: 330 [id number] Repository [phone] () Date:4313-29-40GY [address] [address]WR: 05/17/2018 Secondary NOT GIVENUNK [place] Insurance:SELF PAY [facility] Hospital Number: Effective Repository Date:2018-05-17 05/17/2018 MARGO A Primary Insurance:[facility] MARGO A [place] [id number] [facility] [place] Number: [id number] Hospital [address]Vvz: 330 [id number] Repository [phone] () Date:3051-36-18UO [address] [address]NP: 05/17/2018 Secondary NOT GIVENUNK [place] Insurance:SELF PAY [facility] Hospital Number: Effective Repository Date:2018-05-17 05/13/2018 MARGO A Primary Insurance:[facility] MARGO A [place] [id number] [facility] LEEDOB: [place] Number: [id number] [facility] [address]Dtd: [phone] [id number] Repository [phone] (HP) Date:7514-03-29WW [address] [address]UI: 05/13/2018 Secondary NOT GIVENUNK [place] Insurance:SELF PAY [facility]: Effective Repository Date:2018-05-13 04/26/2018 Margo A Primary [facility]o A [facility] LeeD[facility]: System HealthcarePolicy [id number] Repository [place] Number: Effective [place], [place] Date: [address]Rov: () 04/19/2018 Margo A Primary Margo A [facility] LeeDOB: Insurance:United LeeDOB: System HealthcarePolicy [id number] Repository [place] Number: Effective [place], [place] Date: [address]Usg: () 03/28/2018 Margo A Primary Margo A [facility] LeeDOB: Insurance:United LeeDOB: System HealthcarePolicy [id number] Repository [place] Number: Effective [place], [place] Date: [address]Ebo: () 03/25/2018 Margo A Primary Margo A [facility] LeeDOB: Insurance:United LeeDOB: System HealthcarePolicy [id number] Repository [place] Number: Effective [place], [place] Date: [address]Ogq: () 02/28/2018 Margo A Primary Margo A [facility] LeeDOB: Insurance:United LeeDOB: System HealthcarePolicy [id number] Repository [place] Number: Effective [place], [place] Date: [address]Ent: () 02/21/2018 Margo A Primary Margo A [facility] LeeDOB: Insurance:United LeeDOB: System HealthcarePolicy [id number] Repository [place] Number: Effective [place], [place] Date: [address]Fsx: () 02/14/2018 Margo A Primary Margo A [facility] LeeDOB: Insurance:United LeeDOB: System HealthcarePolicy [id number] Repository [place] Number: [place] Date: [address]Jgn: () 02/14/2018 Margo A Primary Margo A [facility] LeeDOB: Insurance:United LeeDOB: System HealthcarePolicy [id number] Repository [place] Number: [place] Date: [address]Hil: () 01/17/2018 Margo A Primary Margo A [facility] LeeDOB: Insurance:United LeeDOB: System HealthcarePolicy [id number] Repository [place] Number: [place] Date: [address]Wom: () 01/17/2018 Margo A Primary Margo A [facility] LeeDOB: Insurance:United LeeDOB: System HealthcarePolicy [id number] Repository [place] Number: [place] Date: [address]Udg: () 01/02/2018 Margo A Primary Margo A [facility] LeeDOB: Insurance:United LeeDOB: System HealthcarePolicy [id number] Repository [place] Number: [place] Date: [address]Ojm: () 12/06/2017 Margo A Primary Margo A [facility] Health LeeDOB: Insurance:United LeeDOB: System HealthcarePolicy [id number] Repository [place]: [place] Date: [address]Xnu: (HP) 12/03/2017 MARGO A Primary Insurance:[facility] MARGO OLEARY[address] [place], [place] [address]B: [place], [place] Number: [id number] [facility] [address]Ula: [phone] Repository [phone] (HP) Date:7603-26-97HL [address] [address]FT: 12/03/2017 Secondary NOT GIVENUNK [place] Insurance:SELF PAY [facility] Number: Effective Repository Date:2017-12-03 11/20/2017 Margo A Primary Insurance:Self Margo A [facility] LeeDOB: PayPolicy Number: LeeDOB: System Effective Date: [id number] Repository [place], [place] [address]Vds: () 11/06/2017 MARGO A Primary Insurance:[facility] MARGO OLEARY[address] [place], [place] [address]B: [place] Number: [id number] [facility] [address]Mfl: [phone] Repository [phone] () Date:[id number] [address] [address]HN: 11/06/2017 Secondary NOT GIVENUNK [place] Insurance:SELF PAY [facility] Number: Effective Repository Date:2017-11-06 10/25/2017 Margo A Primary Margo A [facility] LeeDOB: Insurance:United LeeDOB: System HealthcarePolicy [id number] Repository [facility] Number: Effective [place], [place] Date: [id number]: (HP) 09/28/2017 Margo A Primary Margo A [facility] LeeDOB: Insurance:United LeeDOB: System HealthcarePolicy [id number] Repository [facility] Number: Effective [place], [place] Date: [address]Opp: (HP) 09/12/2017 MARGO A Primary Insurance:[facility] [place] Number: [id number] [address]Bxs: 330 [id number] Repository [phone] () Date:[id number] [address] [address]NM: 09/12/2017 Secondary NOT GIVENUNK [place] Insurance:SELF PAY [facility] Hospital Number: Effective Repository Date:2017-09-12 09/04/2017 MARGO A Primary Insurance:[facility]GO [facility] [place] Number: [id number] Hospital [address]Jnr: 330 [id number] Repository [phone] () Date:1115-35-34PN [address] [address]MS: 09/04/2017 Secondary NOT GIVENUNK [place] Insurance:SELF PAY [facility] Number: Effective Repository Date:2017-09-04 09/04/2017 MARGO A Primary Insurance:[facility] MARGO [facility]ILBURN [facility] [place] Number: [id number] Hospital [address]Zwl: 330 [id number] Repository [phone] () Date:8704-97-07NZ [address] [address]DY: 09/04/2017 Secondary NOT GIVENUNK [place] Insurance:SELF PAY [facility] Number: Effective Repository Date:2017-07-14 08/28/2017 Margo A Primary Insurance:[facility] Margo [facility]: [place], [place] Number: [id number] Hospital [address]Wrk: [phone] [id number] Repository [phone] () Date:[id number] [address] [address]CA: 08/28/2017 Secondary NOT GIVENUNK [place] Insurance:SELF PAY [facility] Number: Effective Repository Date:2017-08-28 08/27/2017 Margo Christianson Primary Insurance:[facility] Margo Oleary[address] [place], [place] [address]B: [place], [place] Number: [id number] [facility] [address]Yzm: [phone] Repository [phone] (HP) Date:[id number] [address]MA: 08/27/2017 Secondary NOT GIVENUNK [place] Insurance:SELF PAY [facility] Number: Effective Repository Date:2017-08-27 08/24/2017 Margo Christianson Primary [facility] Eusebio: System [facility] [id number] [facility] Number: Effective [place], [place] Date: [address]Hwr: ()
== END ==
PROVIDERS: Family Provider Student in an Organized Health Care Education/Training Program; PCP Student in an Organized Health Care Education/Training Program; Referring Provider Surgery; Visit Provider Surgery
DX: E61.9 Deficiency of nutrient element, unspecified (principal); E55.9 Vitamin D deficiency, unspecified; K90.9 Intestinal malabsorption, unspecified
CPT/HCPCS: 36415; 80053; 82607; 82746; 83540; 83735; 84630; 85027

== ENCOUNTER → 2018-07-18 09:33 | Outpatient (CLI) | payer MEDICAID, SELFPAY ==
--- NOTE | 2018-07-18 09:38 | US_ITS ---
STUDY: ULTRASOUND BREAST - RIGHT REASON FOR EXAM: Female, 28 years old. Breast pain and nipple discharge. TECHNIQUE: Axial and longitudinal images of the RIGHT breast were performed with a high resolution ultrasound transducer. COMPARISON: Comparison is made with prior mammogram done earlier today. FINDINGS: RIGHT Breast: There is evidence of dilated retroareolar ducts. No solid or cystic mass lesion is seen. IMPRESSION: Dilated retroareolar ducts. ASSESSMENT CATEGORY: BIRADS Category 2: Benign. A letter regarding these results will be sent to the patient by the facility within 30 days. Electronically Signed: Octavio Rodriguez MD at 11:53 EST Tel [phone], Service support , STUDY: ULTRASOUND BREAST - LEFT REASON FOR EXAM: Female, 28 years old. Breast pain and breast discharge. TECHNIQUE: Axial and longitudinal images of the LEFT breast were performed with a high resolution ultrasound transducer. COMPARISON: Comparison is made with prior mammogram done earlier in the day. FINDINGS: LEFT Breast: There is evidence of dilated subareolar ducts. US/Breast Limited Unilateral IMPRESSION: Dilated subareolar ducts. ASSESSMENT CATEGORY: BIRADS Category 2: Benign. A letter regarding these results will be sent to the patient by the facility within 30 days. Electronically Signed: Octavio Rodriguez MD at 11:54 EST Tel [phone], Service support ,
--- NOTE | 2018-07-18 09:38 | BI_ITS ---
MAMMOGRAPHY - BILATERAL DIAGNOSTIC REASON FOR EXAM: Female, 28 years old. 3 week history of right breast pain. Bloody discharge on the right side. PERTINENT HISTORY: Grandmother with breast cancer. TECHNIQUE: Digital bilateral breast denice (3D mammographic acquisition) in the CC and MLO projections. 2-D mediolateral oblique (MLO) and craniocaudad (CC) views of both breasts were obtained. CAD: Full Field Digital Mammography with Computer Added Detection was performed. COMPARISON: Comparison is made with prior examination dated January 12, 2014. FINDINGS: Breast Composition: There are scattered areas of fibroglandular density. There are no dominant masses or suspicious calcifications. No other significant abnormalities are identified. There has been no significant change since the prior study. BI/DIAG MAMM W/CAD, BILAT IMPRESSION: Stable bilateral diagnostic mammogram. With the patient's history of a breast discharge, correlation with ultrasound is recommended. ASSESSMENT CATEGORY: BIRADS Category 0: Incomplete. Need additional imaging evaluation. A letter regarding these results will be sent to the patient by the facility within 30 days. Approximately 10% of breast cancers are not detected by mammography. A normal mammogram should not delay biopsy of a clinically suspicious abnormality. Electronically Signed: Octavio Rodriguez MD at 10:39 EST Tel [phone], Service support ,
== END ==
PROVIDERS: Family Provider Student in an Organized Health Care Education/Training Program; PCP Student in an Organized Health Care Education/Training Program; Visit Provider Obstetrics & Gynecology
DX: N64.4 Mastodynia (principal); N64.52 Nipple discharge
CPT/HCPCS: 76642; 77062; 77066; G0279

== ENCOUNTER → 2018-09-09 16:38 | Outpatient (CLI) | payer MEDICAID, SELFPAY ==
[2018-07-25 10:42] VITALS: BMI 33.1
[2018-09-09 16:42] LABS: Bacteria 0 SEEN /hpf (None Seen); Mucous, Urine 0 SEEN /hpf (<or=2+)
[2018-09-09 18:31] LABS: Color, Urine Yellow (Yellow); Glucose, Dipstick Normal (Normal); Ketone-Dipstick Negative (Negative); Leukocyte Esterase-Dipstick 100 /ul (Negative); Nitrite-Dipstick Negative (Negative); Occult Blood-Urine 25 /ul (Negative); Protein-Dipstick 15 mg/dl (Negative); Urine Bilirubin Dipstick Negative (Negative); Urine Clarity Clear (Clear); Urine Urobilinogen Normal (Normal)
[2018-09-09 19:27] LABS: Red Blood Cells-Urine 0-5 SEEN /hpf (0-5); Squamous Epithelial Cells - UA 0-5 SEEN /hpf (5-10); White Blood Cells 10-25 SEEN /hpf (0-5)
== END ==
PROVIDERS: Visit Provider Obstetrics & Gynecology
DX: N39.0 Urinary tract infection, site not specified (principal)
CPT/HCPCS: 81001; 87077; 87086; 87088; 87186

== ENCOUNTER 2019-10-20 10:05 | Day surgery (SDC) | payer MEDICAID, SELFPAY ==
[2018-07-25 10:42] VITALS: BMI 33.1
[2019-10-16 17:29] LABS: Hematocrit 40.1 % (37-47); Hemoglobin 12.8 g/dL (12.0-15.0); Mean Corp Hgb Conc 31.9 g/dL (32-36); Mean Corpuscular Hgb 28.6 pg (27.0-32.0); Mean Corpuscular Volume 89.7 fL (81-99); Mean Platelet Vol. 12.1 fl (6.2-12.0); Platelet Count 205 K/mm3 (150-450); RBC Distribution Width CV 12.5 % (11.6-14.6); RBC Distribution Width SD 41.4 fl (35.1-43.9); Red Blood Count 4.47 M/mm3 (4.2-5.4)
[2019-10-16 17:52] LABS: Internal QC Validated? YES +Cl - CLEAR BKGD; Pregnancy, Serum, hCG Quali. NEGATIVE Negative
[2019-10-16 18:08] LABS: International Normalized Ratio 1.1; Prothrombin Time (Protime)PT. 13.6 SECONDS (11.7-14.9)
--- NOTE | 2019-10-19 19:05 | HP.PCM_ITS ---
History and Physical Date of Admission: 10/20/19 Surgical History and Physical Margo Anderson, a 29 year old female 3 0 0 0 3, presents for Dx L/S on October 20, 2019 at 11:00. -- Dyspareunia, Pelvic Pain -- Having cramping she rates on pain scale ranging from 5-10. Constant cramping a 5 with occasional cramps as bad as 10. Also states she started bleeding again. She would like to have hysterectomy eventually but not now. Has concerns regarding increasing pain with suspected Endometriosis. 29 y.o G 3 P 3 previo us smoker (quit in 2007) with history of Irregular Menses and LMP of 12-19 lasting 4 days. Reports that she cannot have intercourse with her spouse as it hurts too bad and has been increasing worsening over the last several months. Patient declines tubal with procedure. Patient also asking for something for nerves prior to procedure. Symptoms of Endometriosis which began several years. Margo claims it started gradually and has been present recent increasing pain. It occurs With [place]. It is located in the vagina.; It is located in the lower abdomen. Margo characterizes it to be downward to groin and pelvis. Margo characterizes the quality sharp.; Margo characterizes the quality searing.; Margo characterizes the quality throbbing cramping,. Severity is moderate and not improving and very concerned. MEDICATIONS HISTORY: Current medications prescribed by our practice are: 1. Mirena 20 mcg/24 hr (5 years) intrauterine device, placed 11/06/17 Due for removal by 2022 2. ProAir HFA 90 mcg/actuation aerosol inhaler, As Directed 3. Ultram 50 mg tablet, 1 tablet po every 8 hours prn severe pain Patient is also takin. Lexapro 20 mg tablet, One pill by mouth once a day 2. amitriptyline 25 mg tablet, As Directed 2 tabs po QHS ALLERGIES: NKDA Infections - Bronchitis, Chicken pox and HX. OF UTI'S Illnesses - asthma, anxiety and depression Accidents - no injuries of consequence Hospitalizations - Childbirth and surgery B12 deficiency after last baby, took supplement approx 5-6 mo.; Review of Systems: GENERAL - Denies fever, or chills SKIN - Denies skin changes EYES - wears eye glasses EARS - Denies difficulty hearing NOSE - Denies nasal congestion or bleeding MOUTH - Denies sore throat or difficulty swallowing NECK - Denies pain or swelling RESPIRATORY - Denies shortness of breath or wheezing CARDIOVASCULAR - Denies palpitations or chest pain GASTROINTESTINAL - Denies nausea, vomiting, diarrhea, constipation GENITOURINARY - Denies dysuria, frequency of urination, incontinence of urine MUSCULOSKELETAL - Denies joint or muscle pain NEUROLOGICAL - Denies localized numbness or weakness PSYCHIATRIC - Denies depression or anxiety ENDOCRINE - Denies heat or cold intolerance, weight loss or gain HEMATO-IMMUNOLOGIC - Denies excessive bleeding with cuts SOCIAL HISTORY: Alcohol Use - denies drinking Smoking - used to smoke but quit and 2007 Diet - balanced Diet Lifestyle - moderate stress lifestyle Exercise - none Seat Belt Use - always Employer - [employer] Illicit Drug Use - denies use of street drugs Sexual Activity - Residence - owns a home and lives with Place of - [place] Spouse-Sig Other Name - Kartik Spouse-Sig Other Occupation - [employer] / Mat Repairer/Pack Worker Supervisor Spouse-Sig Other Phone No - [phone] Children Name(s) - Osei Ryan Oliver (17) Control - Mirena IUD FAMILY HISTORY: Family history of Hypertension. Mother: DM II. Father: DM II. MENSTRUAL HISTORY: LMP Known?- Approximate-Month Known Amount/Duration - 4 days, Regularity - Irregular, Frequency - monthly days, LMP - 10/15/19, Age Onset Menarche - 8 PAST PREGNANCIES: Total Pregnancies - 3; Full Term Pregnancies - 3; Premature - 0; Abortions, Induced - 0; Abortions, Spontaneous - 0; Ectopics - 0; Multiple Births - 0; Living Children - 3 SURGICAL HISTORY: 1. 02/27 gastric bypass 2. Appendectomy, 2005 PHYSICAL EXAM BP- 116/72 Sitting, Right arm, regular cuff Temp- 97.8 Taken Orally Weight- 192.20200 lbs Height- 68 inch BMI:29.25 CONSTITUTIONAL - NAD, well nourished, and well developed SKIN - No rash, lesions, or ulcers HEENT - Normocephalic, PERRLA, EOMI NECK - No nodes, no nuchal rigidity and thyroid normal size and texture LYMPH NODES - Palpation of lymph nodes in neck and groins within normal limits LUNGS - CTA x2 without wheezes, crackles or rales CARDIAC - Regular rate and rhythm without rubs, murmurs, or gallops ABDOMEN - Without hepatosplenomegaly, distention, masses, rebound, or guarding; normal bowel sounds; no hernias and tenderness lower pelvis R>L EXTREMITIES - No edema or calf tenderness NEUROLOGICAL - Cranial nerves II-XII grossly intact PSYCHIATRIC - A and O to time, place, person, mood and affect External Genital Vagina - completely shaven and dry Urethra/Urethral Meatus - non-tender Bladder - non-tender Vagina - physiologic discharge noted Cervix - IUD string noted at ectocervix. Approx 1-2 cm length and marked CMT Uterus - multiparous size 6 cm & wt 75-125 g and marked tenderness Adnexa - exquisite tenderness both adnexa and no masses ASSESSMENT/PLAN: 1. Pelvic Pain, Unspec Likely endometriosis by history, time course, and pain pattern. Discussed options of proceeding with Dx L/S with or without tubal, expectant management, Lupron or Orilissa. Discussed L/S at length including RBAs and all questions answered.
[2019-10-20 10:38] VITALS: BP 116/71; PULSE 72; RESP 15; TEMP 36.9; O2SAT 100; BMI 28.8
[2019-10-20 10:40] LABS: Internal QC Validated? YES +Cl - CLEAR BKGD; Pregnancy, Urine Negative Negative
[2019-10-20] MEDS: Lactated Ringers 1,000 ML 100 ML IV ×2 (10:45→15:22)
--- NOTE | 2019-10-20 11:05 | FALL_PTH ---
PATIENT: NORBERTO OLEARY [place] [facility] [id number] AGE/SX: 29/F ROOM: RE10/20/[address]: Dr. Mars Valencia MD : 1990 BED: DIS: 10/20/2019 SPEC #: [id number] RECD: 10/20/19 12:59 STATUS: CHAD FRANCINE #: [id number] ALFREDA: 10/20/19 11:[address]: Mars Valencia DEPT: SURGICAL PATHOLOGY RECD BY: Fletcher Elizalde ENTERED: 10/20/19 14:02 SP TYPE: FALL TUBES OTHR DR: Dr. Evelina Bonds, Tissues: Right fallopian tube Procedures: Surgery Specimen Level IV HEADER OPERATION: Diagnostic laparoscopy PRE-OP DIAGNOSIS: Pelvic pain TISSUE SUBMITTED: Biopsy of right fallopian tube MICROSCOPIC DIAGNOSIS Right fallopian tube, biopsy: Benign epithelial inclusion cyst. AM:lillian 10/21/19 MICROSCOPIC DESCRIPTION Slides are reviewed. GROSS DESCRIPTION Received in fixative is one container labeled with the patient's name and designated biopsy of right fallopian tube. The specimen consists of one irregular fragment of light ivy soft tissue that measures 0.2 x 0.1 x <0.1 cm. The specimen is totally submitted in one cassette. / AM:lillian 10/20/19 TC:5 CPT: 64448
[2019-10-20] MEDS: Ropivacaine 0.5% 30 ML Vial (12:26)
--- NOTE | 2019-10-20 12:35 | PCM.OPRPT ---
Report of Operation Date of Procedure: 10/20/19 Pre-Operative Diagnosis: Dysmenorrhea and Pelvic Pain Post-Operative Diagnosis: Dysmenorrhea and Pelvic Pain Surgery/Procedure Performed:: Diagnostic Laparoscopy, Biopsy of Right Fallopian Tube Inflammatory Tissue Description of Surgical Findings:: Normal-appearing uterus fallopian tubes and ovaries as well as upper abdomen. Appendix previously removed. Inflammatory nodules across across fallopian tubes visualized suspicious for endometriosis. Cervix which prolapses to within 2 to 3 cm of the introitus which would make a laparoscopic-assisted vaginal hysterectomy moderately difficult but possible if this were necessary. program instructor: Mirta Noble Type of Anesthesia:: General - Endotracheal Anesthesiologist: Tomy Julien Specimen's removed: Inflammatory nodule left of fallopian tube Estimated Blood Loss (mL): Minimal Fluids Replaced: Crystalloid Description of Procedure: Surgeon: Mars Valencia MD, FACOG Indications: This is a 29 year old patient who has the above diagnosis. She is aware that we may not find a cause of her pelvic pain and dysmenorrhea. All questions were answered to consider the patient well-informed. Procedure: The patient was taken to the operating room where after induction of general anesthesia, she was placed in the dorsolithotomy position and prepped and draped in the usual sterile fashion. The bladder was drained of approximately 50 cc of clear yellow urine with a catheter. Anterior cervix was grasped with the tenaculum. Conn cannula was placed and attention was turned toward the laparoscopic portion of the procedure. Approximately 25 cc of half percent ropivacaine was injected subumbilically, suprapubically and midway between. A 5 mm bladeless trocar was placed subumbilically and intraperitoneal placement confirmed. After CO2 insufflation was complete, a 5 mm bladeless trocar was introduced suprapubically and midway between. The above findings were noted. Each fallopian tube was identified to its fimbriated end and monopolar scissors was used to biopsy a nodule from the right fallopian tube and base was cauterized with monopolar cautery on a setting of 25 W coagulation. Pelvis was copiously irrigated with saline due to serosanguineous fluid being present and photographs were taken. Laparoscopic instruments with as much CO2 gas as possible were removed and incisions were closed with interrupted 4-0 Monocryl suture. Steri-Strips placed across the incision. Vaginal instruments were removed. Patient tolerated procedure well was taken to recovery room in satisfactory condition sponge instrument and needle counts were all reportedly correct. Estimated blood loss for the case was minimal. There were no apparent complications of the surgery. Specimens to pathology was right fallopian tube biopsy of inflammatory nodule. Grafts/Implants Used: None - Complications None - Admit VTE Documentation VTE Present on Admission: Yes VTE Mechan Device Prophylaxis: SCD's
[2019-10-20 12:47] VITALS: BP 116/71; BP 117/83; PULSE 76; RESP 16; TEMP 36.8; O2SAT 100
--- NOTE | 2019-10-20 12:48 | PCM.DC.TUB ---
Discharge Diet: No Restrictions - Increase fluid intake for the next 48 hours. Discharge Activity: Return to Normal Activity, May Drive - when you are no longer taking pain/narcotic medicines., May Shower, May Take a Tub Bath May resume sexual activity in: 2 weeks Additional Activity Instructions:: Ambulate often the next week after surgery. Nothing in the vagina for 5 days. Call your doctor if your incision/area has: Continuous Slow Oozing, Sudden Increased Bleeding, Increased Pain/ Swelling, Increased Redness, Foul Smelling Discharge Call your doctor if you observe: Fever of 101 or Higher, Inability to urinate, Inability to have a bowel movement, Using more than one pad per hour Allergies/Adverse Reactions: Allergies No Known Allergies Allergy (Verified 10/20/19 10:27) Medications to take at Discharge Mv-Min/Iron/Folic/Calcium/Vitk [Women's Daily Formula Tablet] 1 ea PO DAILY 08/27/17 calcium carbonate 600 mg calcium (1,500 mg) tablet 600 mg PO DAILY tab 07/25/18 Albuterol IH (ProAir) [Proair Hfa (SP)Vent Pts] 1 - 2 puff INHALATION Q6H PRN PRN 10/14/19 Amitriptyline HCl 50 mg PO QHS 10/14/19 Escitalopram Oxalate [Lexapro] 20 mg PO DAILY 10/14/19 Vitamin A 8,000 unit PO DAILY 10/14/19 Vitamin E 1,000 unit PO DAILY 10/14/19 Oxycodone [Oxyir] 5 mg PO Q6H PRN PRN 7 Days #7 tablet 10/20/19 The following prescriptions were given: Oxycodone [Oxyir] 5 mg PO Q6H PRN PRN 7 Days #7 tablet PRN Reason: Pain Score 6-10/10 Transmission Status: Sent to [facility] Primary Care Physician: Evelina Bonds DO [Primary Care Provider] - Test Results: Test results from this visit will be discussed in further detail at your follow-up appointment, if applicable. Please Follow Up With: Mars Valencia MD - [phone] When: 2 to 3 weeks
[2019-10-20 13:00] VITALS: BP 110/61; BP 116/71; PULSE 74; RESP 16; O2SAT 99
[2019-10-20 13:15] VITALS: BP 105/59; BP 116/71; PULSE 75; RESP 16; O2SAT 100
[2019-10-20 13:30] VITALS: BP 115/74; BP 116/71; PULSE 72; RESP 16; TEMP 37.1; O2SAT 99
[2019-10-20] MEDS: oxyCODONE 5 MG Tablet PO (14:32)
--- NOTE | 2019-10-20 16:28 | SUR.PHASEII ---
Addendum entered by Betsy Capellan 10/20/19 17:12: Straight cath returned 800 ml clear yellow urine, reports feeling relief. Both patient & verbalize understanding of d/c instructions and to return within 8 hours if unable to void. Addendum entered by Betsy Capellan 10/20/19 16:34: Dr Valencia orders to straight cath x 1 and d/c home after instructing to return to [facility] ED if unable to void within 8 hours. Original Note: 3 hours post-op, has been drinking adequate amount of fluids, unable to void after multiple attempts. Patient reports urge to void but unable, frustrated, wants to go home. Bladder scanned for [address] Mars Valencia.
[2019-10-20 17:08] VITALS: BP 116/71; BP 117/77; PULSE 55; RESP 16; TEMP 37.4; O2SAT 100
== END 2019-10-20 17:21 | disposition home or self-care (01) ==
LOC: SDC 10:08 → AC 10:09
PROVIDERS: Anesthesiology; PCP Family Medicine; Referring Provider Obstetrics & Gynecology; Visit Provider Obstetrics & Gynecology
PROC: (CPT 49320; principal; 2019-10-20 10:50)
DX: N94.6 Dysmenorrhea, unspecified (principal); N94.10 Unspecified dyspareunia; N83.8 Other noninflammatory disorders of ovary, fallopian tube and broad ligament; F32.9 Major depressive disorder, single episode, unspecified; F41.9 Anxiety disorder, unspecified; J45.909 Unspecified asthma, uncomplicated; Z79.899 Other long term (current) drug therapy; Z87.891 Personal history of nicotine dependence; Z98.84 Bariatric surgery status
CPT/HCPCS: 00840; 49321; 36415; 81025; 84703; 85027; 85610; 85730; 86850; 86900; 86901; 88305; J7120; J2405

== ENCOUNTER 2019-10-22 19:55 | Emergency (ER) | payer MEDICAID, SELFPAY ==
[2019-10-22 19:56] VITALS: BP 127/76; PULSE 80; RESP 15; TEMP 36.7; O2SAT 97; BMI 29.9
--- NOTE | 2019-10-22 20:41 | ED.VIS.GEN ---
History of Present Illness Chief Complaint: Complaint Informant: Patient Onset: Yesterday Current Severity: Moderate Maximum Severity: Moderate Narrative: Patient presents with difficulty urinating, bladder pressure, and only going small amounts. She had a laparoscopy performed on Sunday by Dr. Valencia. She states they had to straight catheter before she left the hospital because she was unable to urinate. Since going home she states that she feels that she has to pee frequently, but has a lot of pressure and hesitancy to start her stream. She has had decreased output. - Past Medical History (1) Asthma Status: Chronic (2) Back pain Status: Chronic Past Medical History - Allergies and Home Meds Allergies/Adverse Reactions: Allergies No Known Allergies Allergy (Verified 10/22/19 19:55) Primary Care Physician: Evelina Bonds DO [Primary Care Provider] - Prior records reviewed: Yes Lives: Spouse/ Significant Other Smoking Status: Former smoker Review of Systems General: Denies: Chills, Fever Eyes: Denies: Visual changes - bilaterally ENT: Denies: Bilateral ear pain Cardiovascular: Denies: Chest pain Respiratory: Denies: Dyspnea, Cough Gastrointestinal: Reports: Abdominal pain. Denies: Nausea, Vomiting, Diarrhea Genitourinary: Reports: Dysuria, Frequency Musculoskeletal: Denies: Swelling, Extremity Pain Skin: Denies: Rash Neurological: Denies: Headache Allergy: Denies: Uticaria Physical Exam Vital Signs/Narrative: Vital Signs Temp Pulse Resp BP Pulse Ox 10/22/19 19:56 98.1 F 80 15 127/76 H 97 Inital Vital Signs reviewed: Yes General: Well nourished, Well developed Head: Normocephalic ENT: Moist mucous membranes Neck: Supple Cardiovascular: Regular rate, Regular rhythm Respiratory: No distress, CTA bilaterally Abdomen: Soft, Tender - Mild tenderness of the lower abdomen. Surgical sites are clean and intact. Skin: Normal color Neurological: Alert, Oriented x3 Psychological: Normal affect Diagnostic/Tx/Re-eval Impressions Abdomen/Pelvis CT 10/22/19 21:29 IMPRESSION: Trace bilateral pleural effusions with overlying atelectasis. Status post gastric bypass. Small foci of free air in the upper abdomen, consistent with the patient''s recent postoperative state. No bowel obstruction or inflammation. No urinary calculi. No hydronephrosis. Electronically Signed: Matthew Huddleston, at 21:53 EDT Tel , Service support , 10/22/19 21:29 Abdomen/Pelvis without Cont [CT] Stat Laboratory Results 10/22/19 20:50 Urine Color Yellow Urine Clarity Sl. Cloudy Urine pH 6.0 Ur Specific [place] 1.015 Urine Protein 30 H Urine Glucose (UA) Normal Urine Ketones Negative Urine Occult Blood 150 H Urine Nitrite Negative Urine Bilirubin Negative Urine Urobilinogen Normal Ur Leukocyte Esterase 100 H Urine RBC 0 SEEN Urine WBC 0 SEEN Ur Squamous Epith Cells 0 SEEN Urine Bacteria 0 SEEN Urine Mucus 0 SEEN - Medical Decision Making Urinalysis does not show sign of infection and postvoid residual bladder scan did not show significant retention. In light of the CT scan the flank was obtained to ensure no hematoma or other abnormality pressing on her bladder. This is also unremarkable. Patient may just have urethritis. She will be given a dose of Azo here and will take the same at home. If her symptoms are not improving in the next 2 to 3 days she is to have her urine rechecked. She is given return instructions and what to watch for in case of urinary retention. ED Disposition - Plan for ED Patient: Disposition: Home or Assisted Living Diagnosis: Dysuria Instructions: URETHRITIS, Female (Infec vs Inflam), Adult Referrals: Evelina Bonds DO [Primary Care Provider] - Mars Valencia MD [STAFF PHYSICIAN] -
[2019-10-22 21:01] LABS: Bacteria 0 SEEN /hpf (None Seen); Color, Urine Yellow (Yellow); Glucose, Dipstick Normal (Normal); Ketone-Dipstick Negative (Negative); Leukocyte Esterase-Dipstick 100 /ul (Negative); Mucous, Urine 0 SEEN /hpf (<or=2+); Nitrite-Dipstick Negative (Negative); Occult Blood-Urine 150 /ul (Negative); Protein-Dipstick 30 mg/dl (Negative); Red Blood Cells-Urine 0 SEEN /hpf (0-5); Specific Gravity, Urine 1.015 (1.002-1.030); Squamous Epithelial Cells - UA 0 SEEN /hpf (5-10); Urine Bilirubin Dipstick Negative (Negative); Urine Clarity Sl. Cloudy (Clear); Urine Urobilinogen Normal (Normal); White Blood Cells 0 SEEN /hpf (0-5)
--- NOTE | 2019-10-22 21:29 | CT_ITS ---
STUDY: CT ABDOMEN AND PELVIS WITHOUT CONTRAST REASON FOR EXAM: Female, 29 years old. Pain. Difficulty urinating. Recent laparoscopy 2 days ago. RADIATION DOSAGE (If Supplied By Facility): CTDIvol = ( 10.46 ) mGy, DLP = ( 606.38 ) mGycm TECHNIQUE: Transaxial images were obtained from the dome of the diaphragm to the symphysis pubis without oral contrast, and without intravenous contrast. Sagittal and coronal images were reconstructed. Individualized dose optimization techniques were used for this CT. COMPARISON: None. FINDINGS: Evaluation of the abdominal viscera is limited in the absence of intravenous contrast. There are trace bilateral pleural effusions with overlying atelectasis. The visualized portions of the heart and pericardium are within normal limits. There are no calcified gallstones present. The liver demonstrates an unremarkable unenhanced appearance. The spleen is normal in size. The pancreas demonstrates an unremarkable unenhanced appearance. The adrenal glands are within normal limits. There are no renal or ureteral stones. There is no hydronephrosis. There are postsurgical changes from a gastric band procedure. There is no bowel obstruction or inflammation. There are surgical clips in the region of the appendix consistent with a prior appendectomy. The aorta is normal in caliber. There are small foci of free air, consistent with the patient''s recent postoperative state. There is no free fluid or fluid collection. There is an intrauterine device noted. There are no destructive osseous lesions. CT/Abdomen/Pelvis without Cont IMPRESSION: Trace bilateral pleural effusions with overlying atelectasis. Status post gastric bypass. Small foci of free air in the upper abdomen, consistent with the patient''s recent postoperative state. No bowel obstruction or inflammation. No urinary calculi. No hydronephrosis. Electronically Signed: Matthew Huddleston, at 21:53 EDT Tel , Service support ,
[2019-10-22] MEDS: Phenazopyridine 95 MG Tablet 190 MG PO (22:53)
[2019-10-22 22:54] VITALS: BP 117/72; PULSE 77; RESP 18; O2SAT 98
== END 2019-10-22 22:55 | disposition home or self-care (01) ==
PROVIDERS: Emergency Provider Emergency Medicine; PCP Family Medicine
DX: R30.0 Dysuria (principal); J45.909 Unspecified asthma, uncomplicated; R10.9 Unspecified abdominal pain; R35.0 Frequency of micturition; R39.11 Hesitancy of micturition; Z87.891 Personal history of nicotine dependence
CPT/HCPCS: 74176; 81001; 99283

== ENCOUNTER → 2020-04-23 09:37 | Outpatient (CLI) | payer MEDICAID, SELFPAY ==
[2020-04-23 10:11] LABS: Hematocrit 41.4 % (37-47); Hemoglobin 13.1 g/dL (12.0-15.0); Mean Corp Hgb Conc 31.6 g/dL (32-36); Mean Corpuscular Hgb 28.2 pg (27.0-32.0); Mean Platelet Vol. 11.6 fl (6.2-12.0); Platelet Count 211 K/mm3 (150-450); RBC Distribution Width CV 12.8 % (11.6-14.6); RBC Distribution Width SD 41.8 fl (35.1-43.9); Red Blood Count 4.65 M/mm3 (4.2-5.4); White Blood Count 6.4 K/mm3 (4.4-11.0)
[2020-04-23 10:44] LABS: Vitamin B12 375 pg/mL (211-911); Vitamin D,25 Hydroxy 61.2 ng/mL
[2020-04-23 11:47] LABS: ALB/GLOB Ratio 1.4 RATIO (0.9-2.4); AST(SGOT) 10 U/L (15-37); Alanine Aminotransfer ALT/SGPT 22 U/L (13-56); Albumin, Serum 3.9 g/dL (3.2-5.0); Alkaline Phosphatase 98 U/L (45-117); Anion Gap 8 (5-15); BUN 9 mg/dL (7-18); BUN/Creat Ratio 13.6 RATIO (10-20); Calcium,Total 8.9 mg/dL (8.5-10.1); Chloride 105 mmol/L (98-107); Cholesterol 124 mg/dL (200); Creatinine, Serum 0.66 mg/dL (0.55-1.02); EST Glomerular Filtration Rate 111 mL/min (>60); Est Glom Filt Rate - Afr Amer 134 mL/min (>60); Ferritin 7 ng/mL (8-252); Globulin 2.8 g/dL (2.2-4.2); Glucose 84 mg/dL (74-106); High Density Lipoprotein 55 mg/dL; Iron 101 ug/dL (50-170); Potassium 3.9 mmol/L (3.5-5.1); Protein, Total 6.7 g/dL (6.4-8.2); Sodium Level 140 mmol/L (136-145); Triglycerides 69 mg/dL; Very Low Density Lipoprotein 14 mg/dL (5-40)
[2020-04-29 04:07] LABS: Vitamin B1, Thiamine 130.9 nmol/L (66.5-200.0)
[2020-04-29 08:19] LABS: Zinc, Plasma or Serum 66 ug/dL (56-134)
== END ==
PROVIDERS: PCP Nurse Practitioner Family
DX: E61.9 Deficiency of nutrient element, unspecified (principal); K90.9 Intestinal malabsorption, unspecified
CPT/HCPCS: 36415; 80053; 80061; 82306; 82607; 82728; 82746; 83540; 83735; 84425; 84630; 85027

== ENCOUNTER 2021-09-22 13:23 | Outpatient (CLI) | payer MEDICAID, SELFPAY | END 2021-09-22 23:59 | disposition home or self-care (01) | LOC: LABSPEC 13:25 | PROVIDERS: PCP Nurse Practitioner Family; Visit Provider Obstetrics & Gynecology | DX: R30.0 Dysuria (principal) | CPT/HCPCS: 87077; 87086; 87088; 87186 ==

== ENCOUNTER → 2022-07-19 | Outpatient (CLI) | payer MEDICAID, SELFPAY ==
[2022-07-26 10:53] LABS: HPV APTIMA, High Risk Negative (Negative)
== END | disposition home or self-care (01) ==
LOC: LABSPEC 11:06
PROVIDERS: PCP Nurse Practitioner Family; Visit Provider Obstetrics & Gynecology
DX: Z12.4 Encounter for screening for malignant neoplasm of cervix (principal)
CPT/HCPCS: 87624; 88175; G0145

== ENCOUNTER → 2022-09-28 | Outpatient (CLI) | payer OTHER, MEDICAID, SELFPAY | END | disposition home or self-care (01) | PROVIDERS: PCP Nurse Practitioner Family; Visit Provider Obstetrics & Gynecology | DX: R30.0 Dysuria (principal) | CPT/HCPCS: 87086; 87088; 87186 ==

== ENCOUNTER → 2023-12-28 | Outpatient (CLI) | payer MEDICAID, SELFPAY | END | disposition home or self-care (01) | LOC: LABSPEC 17:02 | PROVIDERS: PCP Nurse Practitioner Family; Referring Provider Advanced Practice Midwife; Visit Provider Advanced Practice Midwife | DX: R30.0 Dysuria (principal) | CPT/HCPCS: 87086; 87088; 87186 ==

== ENCOUNTER → 2024-01-15 | Outpatient (CLI) | payer MEDICAID, SELFPAY ==
[2024-01-18 06:10] LABS: Chlamydia By Nucleic Acid AMP Negative (Negative); Gonococcus By Nucleic Acid AMP Negative (Negative)
== END | disposition home or self-care (01) ==
LOC: LABSPEC 13:45
PROVIDERS: PCP Nurse Practitioner Family; Referring Provider Advanced Practice Midwife; Visit Provider Advanced Practice Midwife
DX: Z34.90 Encounter for supervision of normal pregnancy, unspecified, unspecified trimester (principal)
CPT/HCPCS: 87086; 87088; 87186; 87491; 87591

== ENCOUNTER → 2024-01-22 | Outpatient (CLI) | payer MEDICAID, SELFPAY ==
[2024-01-22 10:57] LABS: Absolute Lymphocyte Count 1.52 X10^3/uL (0.83-4.51); Absolute Neutrophil Count 4.8 X10^3/uL (2.0-7.7); Basophil# 0.02 X10^3/uL; Basophil% 0.3 % (0-1); Eosinophil# 0.02 X10^3/uL; Eosinophils% 0.3 % (0-5); Hematocrit 36.3 % (37-47); Hemoglobin 11.4 g/dL (12.0-15.0); Lymphocyte # 1.52 X10^3/ul (0.83-4.51); Lymphocyte % 21.9 % (19-41); Mean Corp Hgb Conc 31.4 g/dL (32-36); Mean Corpuscular Hgb 26.1 pg (27.0-32.0); Mean Corpuscular Volume 83.1 fL (81-99); Mean Platelet Vol. 11.6 fl (6.2-12.0); Monocyte# 0.56 X10^3/uL; Monocyte% 8.1 % (0-10); NRBC Flagged by Analyzer 0 % (0-5); Neutrophil % 69.1 % (47-70); Platelet Count 210 K/mm3 (150-450); RBC Distribution Width SD 51.4 fl (35.1-43.9); Red Blood Count 4.37 M/mm3 (4.2-5.4); White Blood Count 6.9 K/mm3 (4.4-11.0)
[2024-01-22 11:17] LABS: Hemoglobin A1c 5.3 % (3.8-5.6)
[2024-01-22 11:34] LABS: Ferritin 4 ng/mL (8-252); Iron Binding Capacity,Total 497 ug/dL (250-450)
[2024-01-22 12:10] LABS: HIV - WCH Non-Reactive (Nonreactive); Hepatitis B Surface Antigen Non-Reactive (Nonreactive); Hepatitis C Antibody Non-Reactive (Nonreactive); Rubella IgG Reactive (Nonreactive); Syphilis Antibodies Non-reactive; Vitamin B12 448 pg/mL (211-911)
== END | disposition home or self-care (01) ==
LOC: PAVLAB 10:32
PROVIDERS: PCP Nurse Practitioner Family; Referring Provider Advanced Practice Midwife; Visit Provider Advanced Practice Midwife
DX: O09.90 Supervision of high risk pregnancy, unspecified, unspecified trimester (principal); O99.841 Bariatric surgery status complicating pregnancy, first trimester; Z3A.00 Weeks of gestation of pregnancy not specified
CPT/HCPCS: 36415; 82607; 82728; 82746; 83036; 83550; 85025; 86703; 86762; 86780; 86803; 86850; 86900; 86901; 87340

== ENCOUNTER → 2024-02-12 | Outpatient (CLI) | payer MEDICAID, SELFPAY ==
--- NOTE | 2024-02-12 11:36 | US_ITS ---
STUDY: SECOND AND THIRD TRIMESTER OBSTETRICAL ULTRASOUND - LIMITED REASON FOR EXAM: Female, 33 years old dating LMP: 10/24/2023 PRIOR ULTRASOUND: No relevant prior comparison study available TECHNIQUE: Transabdominal TECHNICAL QUALITY: Adequate. FINDINGS: There is a single intrauterine fetus. The fetus is in a cephalic presentation. There is demonstrated cardiac activity with a heart rate of 135 bpm. There is a normal amniotic fluid volume. The largest amniotic fluid pocket measures 4.3 cm. The amniotic fluid index (JURGEN) is measured. The placenta is posterior in location and is not low lying. There are Grade 0 placental changes. The cervix is not visualized. There is a mass in the posterior wall of the uterus measuring about 5 x 3.7 x 3.2 cm likely representing uterine fibroid slightly indenting the posterior placenta. BIOMETRY: BPD: 3.1 cm: 15 weeks, 6 days HC: 11.9 cm: 15 weeks, 6 days AC: 9.6 cm: 15 weeks, 5 days FL: 1.8 cm: 15 weeks, 2 days Age by LMP: 15 weeks, 6 days. JIMI by LMP: 08/03/2024. age by current US: 15 weeks, 5 days. JIMI by current US: 07/31/2024. Estimated weight: 127 grams, +/- 19 grams, 21 percentile. US/OB Limited (No Biometrics) IMPRESSION: 1. Single live intrauterine fetus in cephalic presentation with an estimated gestational age of 15 weeks and 5 days. The JIMI is 07/31/2024. 2. Mass posterior to the placenta likely representing fibroid. Electronically Signed: Manuel Sandy MD at 14:52 EDT ,
== END | disposition home or self-care (01) ==
LOC: US 11:35
PROVIDERS: PCP Nurse Practitioner Family; Referring Provider Advanced Practice Midwife; Visit Provider Advanced Practice Midwife
DX: N92.6 Irregular menstruation, unspecified (principal)
CPT/HCPCS: 76815

== ENCOUNTER → 2024-03-18 | Outpatient (CLI) | payer MEDICAID, SELFPAY | END | disposition home or self-care (01) | LOC: LABSPEC 12:31 | PROVIDERS: PCP Nurse Practitioner Family; Referring Provider Nurse Practitioner Women's Health; Visit Provider Nurse Practitioner Women's Health | DX: O23.40 Unspecified infection of urinary tract in pregnancy, unspecified trimester (principal); Z3A.00 Weeks of gestation of pregnancy not specified | CPT/HCPCS: 87086; 87088 ==

== ENCOUNTER 2024-03-29 15:30 | Outpatient (CLI) | payer MEDICAID, SELFPAY ==
[2024-03-29 15:52] VITALS: RESP 16; TEMP 36.9
[2024-03-29 15:54] VITALS: PULSE 73; O2SAT 99
[2024-03-29 15:55] VITALS: BP 112/54; PULSE 75
[2024-03-29 15:58] VITALS: BMI 31.6
[2024-03-29] MEDS: Acetaminophen 500 MG Tablet 1000 MG PO (16:20)
[2024-03-29 16:37] LABS: Mucous, Urine 0 SEEN /hpf (<or=2+); Red Blood Cells-Urine 0 SEEN /hpf (0-5)
[2024-03-29 16:39] LABS: Absolute Lymphocyte Count 1.42 X10^3/uL (0.83-4.51); Absolute Neutrophil Count 6.9 X10^3/uL (2.0-7.7); Basophil# 0.02 X10^3/uL; Basophil% 0.2 % (0-1); Eosinophil# 0.02 X10^3/uL; Eosinophils% 0.2 % (0-5); Hematocrit 34.9 % (37-47); Hemoglobin 11.4 g/dL (12.0-15.0); Lymphocyte # 1.42 X10^3/ul (0.83-4.51); Mean Corp Hgb Conc 32.7 g/dL (32-36); Mean Corpuscular Hgb 28.6 pg (27.0-32.0); Mean Corpuscular Volume 87.7 fL (81-99); Mean Platelet Vol. 11.2 fl (6.2-12.0); Monocyte# 0.51 X10^3/uL; Monocyte% 5.7 % (0-10); NRBC Flagged by Analyzer 0 % (0-5); Neutrophil # 6.88 X10^3/uL (2.7-7.7); Neutrophil % 77.5 % (47-70); Platelet Count 201 K/mm3 (150-450); RBC Distribution Width CV 14.3 % (11.6-14.6); Red Blood Count 3.98 M/mm3 (4.2-5.4); White Blood Count 8.9 K/mm3 (4.4-11.0)
[2024-03-29 16:45] LABS: Color, Urine Yellow (Yellow); Glucose, Dipstick 100 mg/dl (Normal); Ketone-Dipstick 5 mg/dl (Negative); Leukocyte Esterase-Dipstick 25 /ul (Negative); Nitrite-Dipstick Positive (Negative); Occult Blood-Urine 25 /ul (Negative); Protein-Dipstick 30 mg/dl (Negative); Specific Gravity, Urine 1.025 (1.002-1.030); Urine Bilirubin Dipstick Negative (Negative); Urine Clarity Clear (Clear); Urine Urobilinogen Normal (Normal)
[2024-03-29 16:49] LABS: Fibrinogen 343 mg/dl (203-444)
[2024-03-29 17:02] LABS: Squamous Epithelial Cells - UA 0-5 SEEN /hpf (5-10); White Blood Cells 0-5 SEEN /hpf (0-5)
[2024-03-29 17:03] LABS: Bacteria 2+ /hpf (None Seen); Calcium Oxalate Crystals Ur 1+ /hpf (<or=2+)
--- NOTE | 2024-03-29 17:09 | OB.TRI.HP_ITS ---
HPI - General General Date of Admission: 03/29/24 HPI Narrative NORBERTO OLEARY, is a 33y/o @ 22 weeks gestation who presents to L&D with cramping and status post fall on her abdomen. The cramping started before her fall. She states that she was at work and fell on a cart. She denies loss of fluid, vaginal bleeding, or contractions. Maternal Data Information JIMI Calculator Estimated Delivery Date Method Current WG Current Estimate 07/31/24 Ultrasound #2 22w 2d Other Estimates 08/30/24 LMP (Certain) 18w 0d 08/04/24 Ultrasound #1 21w 5d PFSH PFSH Medical History Breast pain, right Discharge from right nipple Back pain Asthma Weight loss Home Medications ?Medication ?Instructions ?Recorded ?Last Taken ?Type albuterol sulfate 90 mcg/actuation 1 - 2 puff inhalation Q6H PRN PRN 10/14/19 Unknown History aerosol inhaler Sob &/Or Wheezing ferrous sulfate 325 mg (65 mg 325 mg PO DAILY 12/28/23 03/28/24 History iron) tablet (Feosol) lurasidone 120 mg tablet (Latuda) 120 mg PO DAILY 12/28/23 03/28/24 History PNV 153-FA 400 mcg-om3 35 mg-dha 1 tab PO DAILY 01/08/24 03/28/24 History 25 mg-epa 5 mg-fish oil chew tablet nitrofurantoin 100 mg PO BID 7 days #14 caps 03/29/24 Unknown Rx monohydrate/macrocrystals 100 mg capsule (Macrobid) Allergy/AdvReac Type Severity Reaction Status Date / Time No Known Allergies Allergy Verified 03/18/24 09:56 Family History Mother Diabetes Stillbirth cord around babies neck History of recurrent miscarriages 4 miscarriages Grandfather Diabetes Skin cancer Father Diabetes Brother Diabetes Grandmother Diabetes Skin cancer Son Diabetes Other Arthritis Asthma Cancer Surgical History H/O abdominoplasty H/O laparoscopy History of cholecystectomy Gastric bypass status for obesity History of appendectomy Social History adopted: No household members: significant other number of children: 3 current occupational status: employed current occupation: [employer] in [place] pets and animals: No history of recent travel: No sexually active: Yes Smoking Status: Former smoker quit date: 12/25/23 alcohol intake: current alcohol intake frequency: holidays/special occasions only details: Not while substance use type: does not use well-balanced diet: daily or most days caffeine: Yes Type: coffee Number of servings: 2 eating out: rarely or never during the past year weight has: increased > 10 lbs what type of physical activity do you participate in: none trista/evangelical: Hindu seatbelt use: always do you feel safe at home: Yes additional social history: [facility] History 4 Elective abortions Hx Para 3 Spontaneous abortions Hx # Term Pregnancies Ectopic pregnancies Hx # Pregnancies Multiple births # of living children 3 Past Pregnancies Del. Date Name GA/Weeks Outcome Route Bth Weight Gen Labor Lgth Anesthesia Del Locatn Provider FOB Unknown [facility] 2008 37 live - full term forceps 8#12oz Male epidural [place] [facility] Unknown [place] 2011 38 live - full term 8#13oz Male e pidural [facility] Unknown [place] 2016 37 live - full term 7#11oz Male epidural [facility] Delivery Date: Last Updated by: Roxann Prater IOL, not sure why Delivery Date: Last Updated by: Roxann Prater IOL, spotting/bedrest at end of Delivery Date: Last Updated by: Roxann Prater IOL, thought he was going to be large Visit Details Expected Delivery Route/Plan Labor Preferences- CB/BF classes: [] labor support person: Norberto labor intervention preferences: [] pain management options preferred: [] cut cord/dad catch: [] : [] PP control planned: [] discussed possible routes of delivery and associated risks: [] special requests: [] Plans Covid status: [] Flu vaccine: [] Tdap vaccine: [] Rhogam: NA LARC form signed: [] Problem list reviewed and updated with the most current plan of care details and appropriate orders placed. Relevant counseling for the gestational age provided. Continue routine care and follow up unless otherwise noted in visit notes/problem list details OB Flowsheet Initial Weight: Not Recorded Date -?-?-?-?-?-?-?-?-?-?-?-?- EGA Weight BP Urine Prot -?-?-?-?-?-?-?-?-?-?-?-?- Glucose FHR FuHt Pres Dilation -?-?-?-?-?-?-?-?-?-?-?-?- Effaced St Visit Note 01/15/24 -?-?-?-?-?-?-?-?-?-?-?-?- 11w 5d 190 lb 6 oz 116/72 -?-?-?-?-?--?-?-?-?-?-?-?- 154 -?-?-?-?-?-?-?-?-?-?-?-?- KW-CRL not cons with dates. measuring 11.1 weeks. formal US ordered. Declined NIPT. Hx gastric bypass-labs ordered. MFM anatomy scan ordered and consult placed for teratogen exposure. KW-CRL not cons with dates. measuring 11.1 weeks. formal US ordered. Declined NIPT. Hx gastric bypass-labs ordered. MFM anatomy scan ordered and consult placed for teratogen exposure-benztropin. Plan to stop until seen by MFM 02/20/24 -?-?-?-?-?-?-?-?-?-?-?-?- 16w 6d 192 lb 102/67 -?-?--?-?-?-?-?-?-?-?-?-?- 150 -?-?-?-?-?-?-?-?-?-?-?-?- SM- no vb crampi ng 03/18/24 -?-?-?-?-?-?-?-?-?-?-?-?- 20w 5d 201 lb 2 oz 111/74 Nega tive -?-?-?-?-?-?-?-?-?-?-?-?- Negative 146 20 -?-?-?-?-?-?-?-?-?-?-?-?- MH-No VB. [place]court. Has MFM fu today for echogenic bowel ROS Constitutional Constitutional: Reports systems reviewed and no addt'l complaints, except as documented Gastrointestinal Gastrointestinal: Denies bloating, constipation, cramping, diarrhea, nausea or vomiting Genitourinary Genitourinary: Reports other Details: Denies vaginal odor, vaginal bleeding, or vaginal discharge ; Denies difficulty urinating or flank pain Assessment & Plan (1) Trauma during : PLAN: cbc and fibrinogen normal pain gone while in triage before tylenol (2) UTI (urinary tract infection) in in second trimester: PLAN: will start macrbid ok to dc to home
[2024-03-29] MEDS: Nitrofurantoin Macrocrystals 100 MG Capsule PO (17:20)
== END 2024-03-29 17:30 | disposition home or self-care (01) ==
LOC: WPOUT 15:32 → WP 15:33
PROVIDERS: PCP Nurse Practitioner Family; Referring Provider Obstetrics & Gynecology; Visit Provider Obstetrics & Gynecology
DX: O9A.212 Injury, poisoning and certain other consequences of external causes complicating pregnancy, second trimester (principal); O99.891 Other specified diseases and conditions complicating pregnancy; R25.2 Cramp and spasm; J45.909 Unspecified asthma, uncomplicated; O99.512 Diseases of the respiratory system complicating pregnancy, second trimester; Z87.891 Personal history of nicotine dependence; O99.842 Bariatric surgery status complicating pregnancy, second trimester; Z3A.22 22 weeks gestation of pregnancy; S39.81XA Other specified injuries of abdomen, initial encounter; W19.XXXA Unspecified fall, initial encounter; Y99.0 Civilian activity done for income or pay; O23.42 Unspecified infection of urinary tract in pregnancy, second trimester
CPT/HCPCS: 36415; 59025; 59050; 81001; 85025; 85384; 87086; 87088; 99221; G0378

== ENCOUNTER → 2024-04-15 | Outpatient (CLI) | payer MEDICAID, SELFPAY | END | disposition home or self-care (01) | LOC: LABSPEC 16:31 | PROVIDERS: PCP Nurse Practitioner Family; Referring Provider Obstetrics & Gynecology; Visit Provider Obstetrics & Gynecology | DX: O26.899 Other specified pregnancy related conditions, unspecified trimester (principal); R30.0 Dysuria; Z3A.00 Weeks of gestation of pregnancy not specified | CPT/HCPCS: 87086; 87088; 87186 ==

== ENCOUNTER 2024-04-22 17:45 | Outpatient (CLI) | payer MEDICAID, SELFPAY ==
[2024-04-22 18:11] VITALS: BP 110/65; PULSE 74; RESP 16; TEMP 36.9
[2024-04-22 18:15] VITALS: BMI 32.4
[2024-04-22] MEDS: Lactated Ringers 1,000 ML 999 ML IV (18:25)
--- NOTE | 2024-04-28 07:52 | OB.TRI.PN ---
Progress Notes Date of Service: 04/22/24 Progress Note: Patient presents for triage evaluation secondary to abdominal cramping FHT: 135 Moderate variability reactive no decelerations category I tracing-appropriate for gestational age [place]: none Contractions Assessment and plan: Reactive NST, reassuring maternal and status patient discharged to home to follow-up in the office. See problem list details for additional plan information. Dr Slade aware and agrees with assessment and plan Charges/Coding Multi Select Codes Urinary/Genital Urinary/Genital CPT Codes: 21698-68 non-stress test Interp Assessment & Plan (1) UTI (urinary tract infection) in in second trimester: (2) Echogenic bowel of fetus: COMMENT: genetic testing and MFM follow up recommended: 03/18/24 (3) AMA (advanced maternal age) multigravida 35+: QUALIFIERS: Trimester: second trimester Qualified Code(s): O09.522 - Supervision of elderly multigravida, second trimester COMMENT: growth US third trimester 39-40 (4) Uterine fibroid during , antepartum: COMMENT: 5x3.7x3.2 at 15 weeks (5) Previous gastric bypass affecting in first trimester, antepartum: COMMENT: labs checked discussed vitamin supplemtation (6) Bipolar disorder: QUALIFIERS: Active/Remission status: remission status unspecified Qualified Code(s): F31.9 - Bipolar disorder, unspecified COMMENT: managed by Dr Guevara at 180 (7) Depression: QUALIFIERS: Depression Type: unspecified Qualified Code(s): F32.A - Depression, unspecified (8) UTI (urinary tract infection) during : QUALIFIERS: Trimester: second trimester Qualified Code(s): O23.42 - Unspecified infection of urinary tract in , second trimester COMMENT: 03/2024 culture: (9) Supervision of high risk , antepartum: COMMENT: PRR, , JIMI 08/04/24, Osei Nance Oliver, VIKI Thornton (10) : QUALIFIERS: Weeks of gestation: 20 weeks Qualified Code(s): Z3A.20 - 20 weeks gestation of COMMENT: discussed genetic & carrier testing-undecided
== END 2024-04-22 19:48 | disposition home or self-care (01) ==
LOC: WPOUT 17:49 → WP 17:50
PROVIDERS: PCP Nurse Practitioner Family; Referring Provider Advanced Practice Midwife; Visit Provider Advanced Practice Midwife
DX: O23.42 Unspecified infection of urinary tract in pregnancy, second trimester (principal); F31.9 Bipolar disorder, unspecified; O09.522 Supervision of elderly multigravida, second trimester; O99.342 Other mental disorders complicating pregnancy, second trimester; O99.842 Bariatric surgery status complicating pregnancy, second trimester; Z79.51 Long term (current) use of inhaled steroids; Z3A.20 20 weeks gestation of pregnancy
CPT/HCPCS: 96365; 59025; 99221; J7120; G0378

== ENCOUNTER → 2024-05-13 | Outpatient (CLI) | payer MEDICAID, SELFPAY ==
[2024-05-13 12:08] LABS: Absolute Lymphocyte Count 1.32 X10^3/uL (0.83-4.51); Absolute Neutrophil Count 6.5 X10^3/uL (2.0-7.7); Basophil# 0.02 X10^3/uL; Basophil% 0.2 % (0-1); Eosinophil# 0.03 X10^3/uL; Eosinophils% 0.4 % (0-5); Hematocrit 34.4 % (37-47); Hemoglobin 11.1 g/dL (12.0-15.0); Lymphocyte # 1.32 X10^3/ul (0.83-4.51); Lymphocyte % 15.6 % (19-41); Mean Corp Hgb Conc 32.3 g/dL (32-36); Mean Corpuscular Volume 86.6 fL (81-99); Mean Platelet Vol. 11.7 fl (6.2-12.0); Monocyte# 0.52 X10^3/uL; Monocyte% 6.2 % (0-10); NRBC Flagged by Analyzer 0 % (0-5); Neutrophil # 6.51 X10^3/uL (2.7-7.7); Neutrophil % 77.1 % (47-70); Platelet Count 224 K/mm3 (150-450); RBC Distribution Width CV 12.8 % (11.6-14.6); RBC Distribution Width SD 40.7 fl (35.1-43.9); Red Blood Count 3.97 M/mm3 (4.2-5.4); White Blood Count 8.4 K/mm3 (4.4-11.0)
[2024-05-13 13:05] LABS: HIV - WCH Non-Reactive (Nonreactive); Syphilis Antibodies Non-reactive
== END | disposition home or self-care (01) ==
LOC: LAB 10:26 → LABSPEC 11:51
PROVIDERS: PCP Nurse Practitioner Family; Referring Provider Obstetrics & Gynecology; Visit Provider Obstetrics & Gynecology
DX: O23.42 Unspecified infection of urinary tract in pregnancy, second trimester (principal); Z3A.00 Weeks of gestation of pregnancy not specified
CPT/HCPCS: 36415; 85025; 86703; 86780; 87077; 87086; 87088; 87186

== ENCOUNTER 2024-06-02 20:13 | Outpatient (CLI) | payer MEDICAID, SELFPAY ==
[2024-06-02 20:48] VITALS: BP 111/67; PULSE 69; RESP 14; TEMP 36.8
[2024-06-02 20:49] VITALS: PULSE 70; O2SAT 99
[2024-06-02 21:04] VITALS: BMI 34.1
[2024-06-02 21:15] LABS: Color, Urine Yellow (Yellow); Glucose, Dipstick Normal (Normal); Ketone-Dipstick Negative (Negative); Leukocyte Esterase-Dipstick 500 /ul (Negative); Nitrite-Dipstick Negative (Negative); Occult Blood-Urine 10 /ul (Negative); Protein-Dipstick 15 mg/dl (Negative); Specific Gravity, Urine 1.025 (1.002-1.030); Urine Bilirubin Dipstick Negative (Negative); Urine Clarity Sl. Cloudy (Clear); Urine Urobilinogen Normal (Normal)
[2024-06-02] MEDS: Cephalexin 500 MG Capsule PO (21:46)
[2024-06-02 21:51] LABS: Mucous, Urine 0 SEEN /hpf (<or=2+)
[2024-06-02 21:53] LABS: Color, Urine Yellow (Yellow); Glucose, Dipstick Normal (Normal); Ketone-Dipstick 5 mg/dl (Negative); Leukocyte Esterase-Dipstick 500 /ul (Negative); Nitrite-Dipstick Negative (Negative); Occult Blood-Urine 10 /ul (Negative); Protein-Dipstick 15 mg/dl (Negative); Specific Gravity, Urine 1.025 (1.002-1.030); Urine Bilirubin Dipstick Negative (Negative); Urine Clarity Sl. Cloudy (Clear); Urine Urobilinogen Normal (Normal)
[2024-06-02 22:00] LABS: Bacteria 3+ /hpf (None Seen); Red Blood Cells-Urine 0-5 SEEN /hpf (0-5); Squamous Epithelial Cells - UA 5-10 SEEN /hpf (5-10); White Blood Cells 10-25 SEEN /hpf (0-5)
--- NOTE | 2024-06-03 07:10 | OB.TRI.PN ---
Progress Notes Date of Service: 06/02/24 Progress Note: Patient presents for triage evaluation secondary to pelvic pressure, contracitons FHT: 120 Moderate variability reactive no decelerations category I tracing [place]: irritability Contractions Assessment and plan: UTI in , contractions, 1/2 cm dilated no cervicla change, thick and high. Reactive NST, reassuring maternal and status patient discharged to home to follow-up as scheudled. . See problem list details for additional plan information. Laboratory Studies: Laboratory Tests 06/02/24 06/02/24 Range/Units 21:22 21:00 Urine Color Yellow Yellow (Yellow) Urine Clarity Sl. Cloudy Sl. Cloudy (Clear) Urine pH 6.0 6.0 (5.0 - 8.0) Ur Specific [place] 1.025 1.025 (1.002-1.030) Urine Protein 15 H 15 H (Negative) mg/dl Urine Glucose (UA) Normal Normal (Normal) mg/dl Urine Ketones 5 H Negative (Negative) mg/dl Urine Occult Blood 10 H 10 H (Negative) /ul Urine Nitrite Negative Negative (Negative) Urine Bilirubin Negative Negative (Negative) mg/dL Urine Urobilinogen Normal Normal (Normal) mg/dl Ur Leukocyte Esterase 500 H 500 H (Negative) /ul Urine RBC 0-5 SEEN (0-5) /hpf Urine WBC 10-25 SEEN (0-5) /hpf Ur Squamous Epith Cells 5-10 SEEN (5-10) /hpf Urine Bacteria 3+ (None Seen) /hpf Urine Mucus 0 SEEN (<or=2+) /hpf Charges/Coding Procedures Urinary/Genital 52xxx-59xxx: 34678-99 non-stress test Interp Multi Select Codes Visit Charges Office Visit/Consults: 12053 OV L3 Est 20min Urinary/Genital Urinary/Genital CPT Codes: 47843-52 non-stress test Interp Assessment & Plan (1) UTI (urinary tract infection) in in second trimester: (2) Previous gastric bypass affecting , antepartum: (3) : QUALIFIERS: Weeks of gestation: 31 weeks Qualified Code(s): Z3A.31 - 31 weeks gestation of COMMENT: nl anatomy, discussed genetic & carrier testing-undecided (4) Recurrent urinary tract infection affecting , antepartum: COMMENT: keflex ordered, recommend prophylaxis
== END 2024-06-02 22:45 | disposition home or self-care (01) ==
LOC: WPOUT 20:35 → WP 20:35
PROVIDERS: PCP Nurse Practitioner Family; Visit Provider Obstetrics & Gynecology
DX: O23.43 Unspecified infection of urinary tract in pregnancy, third trimester (principal); Z3A.31 31 weeks gestation of pregnancy
CPT/HCPCS: 59025; 59050; 81001; 81002; 87086; 99221; G0378

== ENCOUNTER → 2024-06-11 | Outpatient (CLI) | payer MEDICAID, SELFPAY ==
--- NOTE | 2024-06-11 11:16 | US_ITS ---
STUDY: SECOND AND THIRD TRIMESTER OBSTETRICAL ULTRASOUND REASON FOR EXAM: Female, 34 years old growth US Q 4 weeks LMP: October 25, 2023. TECHNIQUE: Transabdominal TECHNICAL QUALITY: Adequate. PRIOR ULTRASOUND: Comparison is made with prior study dated February 12, 2024. FINDINGS: There is a single intrauterine fetus. The fetus is in a cephalic presentation. There is demonstrated cardiac activity with a heart rate of 143 bpm. There is a normal amniotic fluid volume. The largest amniotic fluid pocket measures 4.7 cm. The amniotic fluid index (JURGEN) is 15 cm. The placenta is fundal and posterior in location. There are Grade 1 placental changes. The adnexal regions are not visualized. BIOMETRY: BPD: 8.15 cm: 32 weeks, 5 days: 39% HC: 31.03 cm: 34 weeks, 5 days: 62% AC: 30.66 cm: 34 weeks, 4 days: 91% FL: 6.38 cm: 33 weeks, 0 days: 41% CI: 74% FL/BPD: 78% FL/HC: 21% FL/AC: 21% HC/AC: 1.01 age by current US: 34 weeks, 1 days. JIMI by current US: July 22, 2024. Estimated weight: 2310 grams, +/- 347 grams, 74 %. age by prior US: 32 weeks, 6 days. JIMI by prior US: July 31, 2024. Age by LMP: 32 weeks, 6 days. JIMI by LMP: July 31, 2024. US/OB Limited With Biometrics IMPRESSION: Single live intrauterine gestation with a mean gestational age of 32 weeks and 6 days. The measurements obtained today fall within the normal expected range. Electronically Signed: Octavio Rodriguez MD at 14:34 EDT ,
== END | disposition home or self-care (01) ==
LOC: US 11:15
PROVIDERS: PCP Nurse Practitioner Family; Referring Provider Advanced Practice Midwife; Visit Provider Advanced Practice Midwife
DX: Z34.90 Encounter for supervision of normal pregnancy, unspecified, unspecified trimester (principal)
CPT/HCPCS: 76816

== ENCOUNTER 2024-07-08 20:00 | Outpatient (CLI) | payer MEDICAID, SELFPAY ==
[2024-07-08 20:20] VITALS: BMI 34.9
[2024-07-08 20:26] VITALS: BP 118/74; PULSE 64; PULSE 75; RESP 14; TEMP 36.7; O2SAT 100
[2024-07-08] MEDS: fentaNYL 100 MCG/2 ML Ampul 50 MCG IV ×2 (20:59→23:17)
[2024-07-08] MEDS: Betamethasone/Betamethasone 30 MG/5 ML Vial 12 MG IM (20:59)
[2024-07-08] MEDS: Ondansetron 4 MG/2 ML Vial IV (20:59)
[2024-07-08] MEDS: Acetaminophen 500 MG Tablet 1000 MG PO (20:59)
[2024-07-08 21:06] LABS: Absolute Lymphocyte Count 1.83 X10^3/uL (0.83-4.51); Absolute Neutrophil Count 6.8 X10^3/uL (2.0-7.7); Basophil# 0.03 X10^3/uL; Basophil% 0.3 % (0-1); Eosinophil# 0.02 X10^3/uL; Eosinophils% 0.2 % (0-5); Hematocrit 33.6 % (37-47); Hemoglobin 10.8 g/dL (12.0-15.0); Lymphocyte # 1.83 X10^3/ul (0.83-4.51); Mean Corp Hgb Conc 32.1 g/dL (32-36); Mean Corpuscular Hgb 26.1 pg (27.0-32.0); Mean Corpuscular Volume 81.2 fL (81-99); Mean Platelet Vol. 12.3 fl (6.2-12.0); Monocyte% 4.4 % (0-10); NRBC Flagged by Analyzer 0 % (0-5); Neutrophil # 6.82 X10^3/uL (2.7-7.7); Neutrophil % 74.6 % (47-70); Platelet Count 201 K/mm3 (150-450); RBC Distribution Width CV 12.9 % (11.6-14.6); RBC Distribution Width SD 37.7 fl (35.1-43.9); Red Blood Count 4.14 M/mm3 (4.2-5.4); White Blood Count 9.2 K/mm3 (4.4-11.0)
[2024-07-08 21:53] LABS: Syphilis Antibodies Non-reactive
--- NOTE | 2024-07-09 09:02 | OB.TRI.PN_ITS ---
Progress Notes Date of Service: 07/08/24 Progress Note: Patient presents for triage evaluation secondary to contractions FHT: 120-130 Moderate variability reactive no decelerations category I tracing [place]: q 2-4 Contractions Assessment and plan: false labor, 4 cm dilated but no cervical change, Reactive NST, reassuring maternal and status patient discharged to home to follow- up as scheduled. See problem list details for additional plan information. Laboratory Studies: Laboratory Tests 07/08/24 Range/Units 20:45 WBC 9.2 (4.4-11.0) K/mm3 RBC 4.14 L (4.2-5.4) M/mm3 Hgb 10.8 L (12.0-15.0) g/dL Hct 33.6 L (37-47) % MCV 81.2 (81-99) fL MCH 26.1 L (27.0-32.0) pg MCHC 32.1 (32-36) g/dL RDW Std Deviation 37.7 (35.1-43.9) fl RDW Coeff of Ilana 12.9 (11.6-14.6) % Plt Count 201 (150-450) K/mm3 MPV 12.3 H (6.2-12.0) fl Immature Gran % (Auto) 0.500 (0.0-0.9) % Neut % (Auto) 74.6 H (47-70) % Lymph % (Auto) 20.0 (19-41) % [place] % (Auto) 4.4 (0-10) % Eos % (Auto) 0.2 (0-5) % Baso % (Auto) 0.3 (0-1) % Absolute Neuts (auto) 6.8 (2.0-7.7) X10^3/uL Absolute Lymphs (auto) 1.83 (0.83-4.51) X10^3/uL Nucleated RBC % 0 (0-5) % Syphilis Total Ab Non-reactive Blood Type A POSITIVE Antibody Screen NEGATIVE Charges/Coding Procedures Urinary/Genital 52xxx-59xxx: 40135-29 non-stress test Interp
== END 2024-07-09 00:53 | disposition home or self-care (01) ==
LOC: WPOUT 20:16 → WP 20:20
PROVIDERS: PCP Nurse Practitioner Family; Referring Provider Obstetrics & Gynecology; Visit Provider Obstetrics & Gynecology
DX: O47.03 False labor before 37 completed weeks of gestation, third trimester (principal); Z3A.36 36 weeks gestation of pregnancy
CPT/HCPCS: 96374; 96375; 96376 ×2; 96372; 36415; 59025; 59050 ×2; 85025; 86780; 86850; 86900; 86901; 87653; G0378 ×2; J0702; J2405; 99221

== ENCOUNTER 2024-07-10 16:20 | Inpatient (IN) | payer MEDICAID, SELFPAY ==
[2024-07-10] VITALS (39 sets, daily range): BP systolic 103–156; BP diastolic 55–86; PULSE 54–98; RESP 14–16; TEMP 36.4–37.1; O2SAT 97–100; BMI 35.2
[2024-07-10] MEDS: Lactated Ringers 1,000 ML 999 ML IV (16:25)
[2024-07-10 17:01] LABS: Absolute Lymphocyte Count 2.01 X10^3/uL (0.83-4.51); Absolute Neutrophil Count 5.6 X10^3/uL (2.0-7.7); Basophil# 0.02 X10^3/uL; Basophil% 0.2 % (0-1); Eosinophil# 0.01 X10^3/uL; Eosinophils% 0.1 % (0-5); Hematocrit 32.1 % (37-47); Hemoglobin 10.4 g/dL (12.0-15.0); Lymphocyte # 2.01 X10^3/ul (0.83-4.51); Lymphocyte % 24.9 % (19-41); Mean Corp Hgb Conc 32.4 g/dL (32-36); Mean Corpuscular Hgb 26.3 pg (27.0-32.0); Mean Corpuscular Volume 81.3 fL (81-99); Mean Platelet Vol. 11.8 fl (6.2-12.0); Monocyte# 0.42 X10^3/uL; Monocyte% 5.2 % (0-10); NRBC Flagged by Analyzer 0 % (0-5); Neutrophil # 5.57 X10^3/uL (2.7-7.7); Neutrophil % 69.1 % (47-70); Platelet Count 202 K/mm3 (150-450); RBC Distribution Width SD 38.1 fl (35.1-43.9); Red Blood Count 3.95 M/mm3 (4.2-5.4); White Blood Count 8.1 K/mm3 (4.4-11.0)
[2024-07-10 17:34] LABS: Syphilis Antibodies Non-reactive
[2024-07-10] MEDS: Lactated Ringers 1,000 ML 100 ML IV (17:35)
[2024-07-10] MEDS: fentaNYL-bupivacaine (epidural) 100 ML BAG EPIDURAL (18:35)
[2024-07-10] MEDS: Ondansetron 4 MG/2 ML Vial IV (19:55)
[2024-07-10] MEDS: Oxytocin 15 Units/NS 250ml 15 UNITS/250 ML IV.SOLN 2 UNITS IV (21:31)
[2024-07-10] MEDS: Oxytocin 10 UNITS/ML Vial IM (23:33)
[2024-07-11] VITALS (30 sets, daily range): BP systolic 94–134; BP diastolic 55–69; PULSE 56–86; RESP 14–18; TEMP 36.3–37.3; O2SAT 96–98
[2024-07-11] MEDS: Acetaminophen 500 MG Tablet 1000 MG PO ×4 (00:18→20:01)
[2024-07-11] MEDS: oxyCODONE 5 MG Tablet PO (18:09)
[2024-07-11] MEDS: LURASIDONE HCL 80 MG TABLET PO (21:01)
[2024-07-11] MEDS: LURASIDONE HCL 60 MG TABLET PO (21:02)
[2024-07-12 02:00] VITALS: BP 110/55; PULSE 53; RESP 16; TEMP 36.5; O2SAT 97
[2024-07-12] MEDS: Acetaminophen 500 MG Tablet 1000 MG PO (07:57)
[2024-07-12 08:01] VITALS: BP 109/64; PULSE 77; RESP 16; TEMP 37.1; O2SAT 99
== END 2024-07-12 10:05 | disposition home or self-care (01) | DRG 560 ==
LOC: WPOUT 16:27 → WP 16:27
PROVIDERS: Admitting Provider Advanced Practice Midwife; PCP Nurse Practitioner Family; Visit Provider Advanced Practice Midwife
DX: O77.0 Labor and delivery complicated by meconium in amniotic fluid (principal); Z37.1 Single stillbirth; O99.344 Other mental disorders complicating childbirth; F31.9 Bipolar disorder, unspecified; Z98.84 Bariatric surgery status; Z79.899 Other long term (current) drug therapy; Z3A.37 37 weeks gestation of pregnancy; Z87.440 Personal history of urinary (tract) infections
CPT/HCPCS: 36415; 59025; 59050; 85025; 86780; 86850; 86900; 86901; 87653; 99221; J7120; G0378; J0702; J2405

== ENCOUNTER → 2024-09-08 | Outpatient (CLI) | payer MEDICAID, SELFPAY ==
--- NOTE | 2024-09-08 09:20 | US_ITS ---
STUDY: ULTRASOUND BREAST - LEFT REASON FOR EXAM: Female, 34 years old. Left periareolar palpable lump. TECHNIQUE: Axial and longitudinal images of the LEFT breast were performed with a high resolution ultrasound transducer. # OF IMAGES: 11 COMPARISON: Comparison is made with prior mammogram done earlier today. FINDINGS: LEFT Breast: The left periareolar region was examined with ultrasound. There is evidence of dilated ducts. No other abnormality is seen. US/Breast Limited Unilateral IMPRESSION: Dilated subareolar ducts. ASSESSMENT CATEGORY: BIRADS Category 2: Benign. A letter regarding these results will be sent to the patient by the facility within 30 days. Electronically Signed: Octavio Rodriguez MD at 11:11 EST ,
--- NOTE | 2024-09-08 09:20 | BI_ITS ---
MAMMOGRAPHY - BILATERAL DIAGNOSTIC REASON FOR EXAM: Female, 34 years old. 2 week history of a pea size lump inferior to the left nipple. PERTINENT HISTORY: Grandmother with breast cancer. TECHNIQUE: Digital bilateral breast denice (3D mammographic acquisition) in the CC and MLO projections. 2-D mediolateral oblique (MLO) and craniocaudad (CC) views of both breasts were obtained. CAD: Full Field Digital Mammography with Computer Added Detection was performed. COMPARISON: Comparison is made with prior mammogram dated July 18, 2018. FINDINGS: Breast Composition: The breasts are heterogeneously dense, which may obscure small masses. There are no dominant masses or suspicious calcifications. No other significant abnormalities are identified. There has been no significant change since the prior study. BI/DIAG MAMM W/CAD, BILAT IMPRESSION: Stable bilateral diagnostic mammogram. With the patient''s history of a palpable lump in the left retroareolar region, targeted sonographic correlation recommended. ASSESSMENT CATEGORY: BIRADS Category 0: Incomplete. Need additional imaging evaluation. A letter regarding these results will be sent to the patient by the facility within 30 days. Approximately 10% of breast cancers are not detected by mammography. A normal mammogram should not delay biopsy of a clinically suspicious abnormality. Electronically Signed: Octavio Rodriguez MD at 10:40 EST ,
== END | disposition home or self-care (01) ==
LOC: OPBI 09:19
PROVIDERS: PCP Nurse Practitioner Family; Referring Provider Obstetrics & Gynecology; Visit Provider Obstetrics & Gynecology
DX: N64.4 Mastodynia (principal); N63.20 Unspecified lump in the left breast, unspecified quadrant
CPT/HCPCS: 77062; 76642; 77066; G0279